=== PATIENT | female | born 1935 | race Caucasian/White ===

== ENCOUNTER → 2016-12-03 | Outpatient (CLI) | payer OTHER ==
[~2016-12-03] MED LIST: ALUMSUS21 PO; AMLO2.5T PO; APIX1TAB3 PO; ATOR10TA88 PO; CHOL100040 PO; COEN1CAP PO; DICY10CA12 PO; INSDGIPEN SQ; LISI20TA3 PO; LSN20 PO; METO1TAB31 PO; MISCCAP80 PO; MULT-506 PO; NF34 TOP; NXM/40 PO; NYST100010 TOP; RANI150T3 PO; RANI300T PO; VERA120T15 PO
[2016-12-03 13:17] LABS: BASO % 0.4 %; BASO ABS # 0.03 K/uL (0-0.2); COMPLETE YES; EOS % 1.4 %; HEMATOCRIT 34.4 % (37-47); IG% 0.1 %; LYMPH % 26.2 %; MEAN CELL VOLUME 85.1 fL (80-100); MEAN CORPUSCULAR HGB CONC 31.7 g/dl (32-36); MONO % 9.7 %; NEUT % 62.2 %; PLATELET COUNT 249 K/uL (130-400); RED BLOOD COUNT 4.04 M/uL (4.2-5.4); WHITE BLOOD COUNT 8.01 K/uL (4.8-10.8)
== END | disposition home or self-care (01) ==
LOC: C.LABPBG 10:56
PROVIDERS: ATTEND Internal Medicine Geriatric Medicine
DX: K62.5 Hemorrhage of anus and rectum (principal)

== ENCOUNTER 2016-12-17 00:58 | Emergency (ER) | payer OTHER ==
[~2016-12-17] VITALS: Ht 165.1 cm; Wt 82.5 kg
[~2016-12-17 00:58] MED LIST changes: -AMLO2.5T PO; -LSN20 PO; -RANI300T PO
[2016-12-17 01:02] VITALS: TEMP 36.8; Ht 165.1 cm; Wt 82.5 kg
[2016-12-17] MEDS ORDERED: MoRPHine SULFATE 4 MG/ML 1 ML CARP\\VIAL IV STA (01:46)
[2016-12-17] MEDS ORDERED: ONDANSETRON INJ 2 MG/ML 2 ML VIAL IV STA (01:46)
[2016-12-17 02:00] LABS: BASO % 0.2 %; BASO ABS # 0.02 K/uL (0-0.2); COMPLETE YES; EOS % 2.5 %; HEMATOCRIT 35.7 % (37-47); IG% 0.1 %; LYMPH ABS # 3.04 K/uL (1.2-3.4); MEAN CELL VOLUME 84.6 fL (80-100); MEAN CORPUSCULAR HEMOGLOBIN 27.3 pg (25-34); MEAN CORPUSCULAR HGB CONC 32.2 g/dl (32-36); MEAN PLATELET VOLUME 10.3 fL (7.4-10.4); MONO % 8.1 %; NEUT % 51.1 %; PLATELET COUNT 255 K/uL (130-400); RED BLOOD COUNT 4.22 M/uL (4.2-5.4); WHITE BLOOD COUNT 8.01 K/uL (4.8-10.8)
[2016-12-17 02:24] LABS: BUN/CREATININE RATIO 19.4 (10-20); CALCIUM 9.2 mg/dl (8.5-10.1); CREATININE 1.4 mg/dl (0.60-1.20); POTASSIUM 3.6 mmol/L (3.5-5.1)
[2016-12-17] MEDS ORDERED: AMLO2.5T PO (02:40)
--- NOTE | 2016-12-17 03:02 | EMERGENCY ROOM VISIT NOTE ---
History Report prepared by Jeffrey: Isaías Pollard Under the Supervision of: Dr. Rena Wood D.O. First contact with patient: 01:05 Chief Complaint: HYPERTENSION Stated Complaint: HIGH BLOOD PRESSURE, SEVERE HEADACHE History of Present Illness The patient is a 81 year old female who presents to the Emergency Room with complaints of a worsening sharp headache starting two days ago. The patient currently rates her discomfort as an 8/10 in severity. The patient states that light makes it worse. The patient denies any nausea, vomiting, vision changes, chest pain, shortness of breath, fevers, chills, weakness, or tingling. She states that she has had a similar headache in August. The patient states that she has a history of a DVT and she is currently on eliquis. The patient additionally states that she has a history of hypertension and diabetes. The patient states that her dosage of lisinopril has recently been doubled, and she started amlodipine at 2.5mg two days ago. Also, she say that two days ago her doctor stopped verapamil, which she was taking for migraines. Source of History: patient Onset: two days ago Position: other (head) Symptom Intensity: 8/10 Quality: sharp Timing: worsening Modifying Factors (Worsening): other (light) Associated Symptoms: No SOB, No chest pain, No chills, No fevers, No nausea , No vomiting, No weakness Review of Systems See HPI for pertinent positives & negatives. A total of 10 systems reviewed and were otherwise negative. Past Medical & Surgical Medical Problems: (1) Benign hypertension (2) Cholecystectomy (3) Diabetes mellitus (4) Diverticulitis (5) Gastroesophageal reflux disease (6) History of - hysterectomy Family History No pertinent family history Social History Smoking Status: Never Smoker Alcohol Use: none Drug Use: none Marital Status: Housing Status: lives with family Occupation Status: retired Current/Historical Medications Scheduled Amlodipine (Norvasc), 2.5 MG PO DAILY Apixaban (Eliquis), 5 MG PO BID Atorvastatin (Lipitor), 10 MG PO DAILY Cholecalciferol (Vitamin D-1000), 1,000 INTER.UNIT PO DAILY Clobetasol Propionate (Clobetasol Propionate), 1 APPLN TOP 2-3XSWEEK Coenzyme Q10 (Ubidecarenone) (Co Q10), 30 MG PO DAILY Dicyclomine Hcl (Dicyclomine Hcl), 10 MG PO TID/PRN Esomeprazole Magnesium (Nexium), 40 MG PO DAILY Insulin Glargine (Lantus Solostar), 23 UNITS SQ HS Lisinopril (Prinivil), 40 MG PO DAILY Metoprolol Succinate (Toprol Xl), 12.5 MG PO DAILY Multivitamin (Multivitamin), 1 TAB PO DAILY Nystatin (Topical) (Nystop), 1 APPLN TOP BID Probiotic Product (Probiotic), 1 CAP PO DAILY Ranitidine Hcl (Zantac), 150 MG PO HS Scheduled PRN Aluminum Hydroxide-Mag Carb (Gaviscon), 15-30 ML PO DIRECTED PRN for indigestion Allergies Coded Allergies: Penicillins (Verified Allergy, Intermediate, rash, 12/17/16) Sulfa Antibiotics (Verified Allergy, Intermediate, rash, 12/17/16) Atropine (Verified Allergy, Mild, PASSED OUT, 12/17/16) Cholestyramine (Verified Allergy, Mild, LIP SWELLING WITH PREVALITE (GEN QUESTRAN), 12/17/16) Cimetidine (Verified Allergy, Mild, INSOMNIA, 12/17/16) Diphenoxylate (Verified Allergy, Mild, PASSED OUT, 12/17/16) Ranitidine (Verified Allergy, Mild, INSOMNIA, 12/17/16) Sulfa Drugs (Verified Allergy, Mild, RASH, 12/17/16) Nitrofurantoin (Verified Allergy, Unknown, unkn, 12/17/16) Physical Exam Vital Signs Date Time Temp Pulse Resp B/P Pulse Ox O2 Delivery O2 Flow Rate FiO2 12/17/16 03:11 76 20 148/72 98 12/17/16 03:00 68 16 145/87 95 Room Air 12/17/16 02:10 61 20 166/83 97 Room Air 12/17/16 01:28 71 20 164/100 97 Room Air 12/17/16 01:02 36.8 74 21 182/76 98 Room Air Physical Exam HEENT: Head - normocephalic and atraumatic. Pupils are equal, round, and reactive to light. Extraocular eye muscles are intact and sclera are anicteric. Ears - bilaterally patent canals with noninjected tympanic membranes and no evidence of hemotympanum. Nose - moist nasal mucosa without discharge. Mouth - moist buccal mucosa. Oropharynx is nonerythematous and there is no tonsillar exudate or edema noted. Neck: Supple; no JVD, nuchal rigidity, cervical lymphadenopathy, or auscultated bruits. Heart: Regular rate and rhythm. There is a normal S1 and S2 with no murmurs, clicks, or gallops appreciated. Lungs: Clear to auscultation bilaterally with no wheezes, rales, or rhonchi. Abdomen: Soft, completely nontender, nondistended, with good bowel sounds. There are no palpable pulsatile masses or hepatosplenomegaly. There is no guarding, rigidity, or rebound noted. Extremities: No evidence of cyanosis, clubbing, or edema. There are easily palpable peripheral pulses. Neuro:The patient is awake and alert, oriented to day, time, and place. Muscle strength is 5/5 in all 4 extremities. The patient has equal director life sciences strength and equal pedal push and pull. There are no cerebellar signs. Medical Decision & Procedures ER Provider Diagnostic Interpretation: CT results as stated below per my review and radiologist interpretation: CT HEAD: Comparison is made to CT head dated 08/11/16. No ICH, mass effect, or midline shift. Lomas-white differentiation preserved. No evidence of skull fracture. Clear paranasal sinuses and mastoid air cells. Radiologist: Miguel Moreno M.D. Laboratory Results 12/17/16 01:20 Red Blood Count 4.22, Mean Corpuscular Volume 84.6, Mean Corpuscular Hemoglobin 27.3, Mean Corpuscular Hemoglobin Concent 32.2, Mean Platelet Volume 10.3, Neutrophils (%) (Auto) 51.1, Lymphocytes (%) (Auto) 38.0, Monocytes (%) (Auto) 8.1, Eosinophils (%) (Auto) 2.5, Basophils (%) (Auto) 0.2, Neutrophils # (Auto) 4.09, Lymphocytes # (Auto) 3.04, Monocytes # (Auto) 0.65, Eosinophils # (Auto) 0.20, Basophils # (Auto) 0.02 12/17/16 01:20 Test 12/17/16 01:20 White Blood Count 8.01 K/uL (4.8-10.8) Red Blood Count 4.22 M/uL (4.2-5.4) Hemoglobin 11.5 g/dL (12.0-16.0) Hematocrit 35.7 % (37-47) Mean Corpuscular Volume 84.6 fL (80-100) Mean Corpuscular Hemoglobin 27.3 pg (25-34) Mean Corpuscular Hemoglobin Concent 32.2 g/dl (32-36) Platelet Count 255 K/uL (130-400) Mean Platelet Volume 10.3 fL (7.4-10.4) Neutrophils (%) (Auto) 51.1 % Lymphocytes (%) (Auto) 38.0 % Monocytes (%) (Auto) 8.1 % Eosinophils (%) (Auto) 2.5 % Basophils (%) (Auto) 0.2 % Neutrophils # (Auto) 4.09 K/uL (1.4-6.5) Lymphocytes # (Auto) 3.04 K/uL (1.2-3.4) Monocytes # (Auto) 0.65 K/uL (0.11-0.59) Eosinophils # (Auto) 0.20 K/uL (0-0.5) Basophils # (Auto) 0.02 K/uL (0-0.2) RDW Standard Deviation 47.5 fL (36.4-46.3) RDW Coefficient of Variation 15.4 % (11.5-14.5) Immature Granulocyte % (Auto) 0.1 % Immature Granulocyte # (Auto) 0.01 K/uL (0.00-0.02) Anion Gap 10.0 mmol/L (3-11) Est Creatinine Clear Calc Drug Dose 34.0 ml/min Estimated GFR () 41.0 Estimated GFR (Non- 35.4 BUN/Creatinine Ratio 19.4 (10-20) Calcium Level 9.2 mg/dl (8.5-10.1) Total Bilirubin 0.6 mg/dl (0.2-1) Aspartate Amino Transf (AST/SGOT) 12 U/L (15-37) Alanine Aminotransferase (ALT/SGPT) 22 U/L (12-78) Alkaline Phosphatase 106 U/L (45-117) Total Protein 7.7 gm/dl (6.4-8.2) Albumin 3.8 gm/dl (3.4-5.0) Globulin 3.9 gm/dl (2.5-4.0) Albumin/Globulin Ratio 1.0 (0.9-2) Laboratory results per my review. Medications Administered Medications (Trade) Dose Ordered Sig/Chantel Route Start Time Stop Time Status Last Admin Dose Admin Morphine Sulfate (MoRPHine SULFATE INJ) 2 mg NOW STAT IV 12/17/16 01:46 12/17/16 01:49 DC 12/17/16 01:56 2 MG Ondansetron HCl (Zofran Inj) 4 mg NOW STAT IV 12/17/16 01:46 12/17/16 01:49 DC 12/17/16 01:55 4 MG Procedure Zofran, Morphine Sulfate ECG Indication: other (headache) Rate (beats per minute): 72 Rhythm: normal sinus Findings: no acute ischemic change, no ectopy ED Course 0105: Past medical records reviewed. The patient was evaluated in room A11. A complete history and physical exam was performed. A twelve-lead EKG was obtained as described above. The patient was observed on the computer science teacher and pulse oximeter. An IV lock was initiated and labs were drawn as above. 0146: Zofran Inj 4mg IV, Morphine Sulfate 2mg IV 257: Upon reevaluation, the patient had significant relief of her headache. Her blood pressure was now 145/87. I discussed findings and results with her. She verbalized agreement of the treatment plan. She was discharged home. Medical Decision The patient is a 81 year old female who presents to the ED with a headache. Differential diagnosis includes medication side effect, intracranial hemorrhage , migraine, hypertensive headache. Labs: No leukocytosis, hemoglobin 11.5, BUN 27, creatinine 1.4, glucose 144, LFTs are normal. The patient presents to the emergency department with a headache and slightly elevated blood pressure. She is currently being treated by her primary care physician for hypertension. Her lisinopril dose had been doubled and she started taking amlodipine approximately 4 days ago. Since that time, she's had a headache that seemed to worsen tonight. CT scan of the brain showed no evidence of acute intracranial hemorrhage. Once her pain was controlled, the blood pressure came down nicely. I have asked the patient to follow-up with her PCP Impression Primary Impression: Headache Additional Impression: Hypertension Scribe Attestation The scribe's documentation has been prepared under my direction and personally reviewed by me in its entirety. I confirm that the note above accurately reflects all work, treatment, procedures, and medical decision making performed by me. Departure Information Dispostion Home / Self-Care Referrals Reza Mccallum M.D. (PCP) Forms HOME CARE DOCUMENTATION FORM, IMPORTANT VISIT INFORMATION, WORK / SCHOOL INSTRUCTIONS Patient Instructions Headaches Self Care, My [facility] Additional Instructions Rest Take plenty of clear liquids Talk to PCP about BP meds Problem Qualifiers
[2016-12-17 03:11] VITALS: BP 148/72; PULSE 76; O2SAT 98
--- NOTE | 2016-12-17 06:46 | DIAGNOSTIC IMAGING REPORT ---
HEAD CT NONCONTRAST CT DOSE: 623.48 mGy.cm HISTORY: Mental status change 08/21/2016 TECHNIQUE: Multiaxial CT images of the head were performed without the use of intravenous contrast. Comparison: None. Findings: The paranasal sinuses and mastoid air cells are clear. The calvarium and skull base are intact. The ventricles and sulci are within normal limits. There is no mass, hematoma, midline shift, or acute infarct. Impression: No acute intracranial abnormality. Electronically signed by: Oz Neri M.D. 12/17/2016 6:44 AM Dictated Date/Time: 12/17/2016 6:44 AM
== END 2016-12-17 03:13 | disposition home or self-care (01) ==
LOC: C.EDB 01:00 → C.EDA 03:13
DX: R51 Headache (principal); I10 Essential (primary) hypertension; E11.9 Type 2 diabetes mellitus without complications; K21.9 Gastro-esophageal reflux disease without esophagitis; K57.92 Diverticulitis of intestine, part unspecified, without perforation or abscess without bleeding; Z90.710 Acquired absence of both cervix and uterus; Z90.49 Acquired absence of other specified parts of digestive tract; Z79.4 Long term (current) use of insulin; Z79.899 Other long term (current) drug therapy; Z88.0 Allergy status to penicillin; Z88.2 Allergy status to sulfonamides; Z88.8 Allergy status to other drugs, medicaments and biological substances

== ENCOUNTER → 2016-12-28 | Outpatient (CLI) | payer OTHER ==
[~2016-12-28] MED LIST changes: +AMLO2.5T PO; +LSN20 PO; +RANI300T PO; -VERA120T15 PO
[2016-12-28 17:35] LABS: BASO % 0.5 %; BASO ABS # 0.03 K/uL (0-0.2); COMPLETE YES; EOS % 1.1 %; HEMATOCRIT 36.6 % (37-47); IG% 0.2 %; LYMPH % 28.8 %; LYMPH ABS # 1.92 K/uL (1.2-3.4); MEAN CELL VOLUME 84.1 fL (80-100); MEAN CORPUSCULAR HEMOGLOBIN 27.4 pg (25-34); MEAN CORPUSCULAR HGB CONC 32.5 g/dl (32-36); MEAN PLATELET VOLUME 10.8 fL (7.4-10.4); NEUT % 61.4 %; PLATELET COUNT 254 K/uL (130-400); RED BLOOD COUNT 4.35 M/uL (4.2-5.4); WHITE BLOOD COUNT 6.66 K/uL (4.8-10.8)
[2016-12-28 17:44] LABS: ALT/SGPT 20 U/L (12-78); BLOOD UREA NITROGEN 21 mg/dl (7-18); BUN/CREATININE RATIO 17.8 (10-20); CALCIUM 9.3 mg/dl (8.5-10.1); CARBON DIOXIDE 22 mmol/L (21-32); CHLORIDE 106 mmol/L (98-107); CHOLESTEROL 139 mg/dl (0-200); GLUCOSE 142 mg/dl (70-99); POTASSIUM 3.9 mmol/L (3.5-5.1); SODIUM 140 mmol/L (136-145); TRIGLYCERIDES 158 mg/dl (0-150); VERY LOW DENSITY LIPOPROT CALC 32 mg/dl
[2016-12-28 17:47] LABS: ALB/GLOB RATIO 0.9 (0.9-2); ALKALINE PHOSPHATASE 96 U/L (45-117); AST/SGOT 14 U/L (15-37); CHOLESTEROL/HDL RATIO 2.2; HDL CHOLESTEROL 62 mg/dl; LDL CHOLESTEROL CALCULATED 45 mg/dl
[2016-12-29 06:48] LABS: ESTIMATED AVERAGE GLUCOSE 157 mg/dl; HA1C FLAG Normal (Normal)
--- NOTE | 2017-01-01 08:58 | CODING QUERY MEDICAL NECESSITY ---
SUPPORTING DIAGNOSIS NEEDED Dr. Mccallum, A supporting diagnosis is required for the test/procedure performed on this patient in order for us to be reimbursed by the patient's insurance. Please provide a supporting diagnosis for the following test/procedure listed below next to the test name along with your signature. *If there is no additional diagnosis for this patient that would support the following test/procedure please document that below next to the test/procedure. Test(s)/Procedure(s) that require a supporting diagnosis: * ([id number]) VITAMIN D ASSAY DIAGNOSIS: * [id number] GLYCATED HEMOGLOBIN DIAGNOSIS: DATE OF SERVICE: 12/28/16 Provider Signature: Date: Thank you Jamir Jameson Health Information Management Once completed, please kindly fax back to [phone] For questions please call [phone]
== END | disposition home or self-care (01) ==
LOC: C.LABPBG 11:40
PROVIDERS: ATTEND Internal Medicine Geriatric Medicine
DX: I10 Essential (primary) hypertension (principal); G47.61 Periodic limb movement disorder; K21.9 Gastro-esophageal reflux disease without esophagitis; R19.7 Diarrhea, unspecified; I25.10 Atherosclerotic heart disease of native coronary artery without angina pectoris; R33.9 Retention of urine, unspecified; D64.9 Anemia, unspecified; I82.409 Acute embolism and thrombosis of unspecified deep veins of unspecified lower extremity; E11.9 Type 2 diabetes mellitus without complications; Z79.899 Other long term (current) drug therapy

== ENCOUNTER → 2017-02-22 | Outpatient (CLI) | payer OTHER ==
[~2017-02-22] MED LIST changes: +ATOR10TA82 PO; -ATOR10TA88 PO; +METO-478 PO; -METO1TAB31 PO
--- NOTE | 2017-02-22 17:13 | DIAGNOSTIC IMAGING REPORT ---
ULTRASOUND VENOUS DOPPLER LWR EXT BILA CLINICAL HISTORY: Bilateral leg swelling COMPARISON STUDY: 03/02/2016 FINDINGS: On the right, no thrombus is visualized in the common femoral vein. There is thrombus present within the distal superficial femoral vein and popliteal vein. No flow is visualized in the peroneal veins. On the left, no thrombus is visualized in the left common femoral superficial femoral or popliteal veins. The left posterior tibial and anterior tibial veins appear patent as visualized. There is broken flow within the left peroneal veins. This could indicate thrombus. IMPRESSION: Acute right lower extremity DVT involving portions of the distal superficial femoral vein and popliteal vein. Electronically signed by: Jeffrey Ruano M.D. 02/22/2017 5:11 PM Dictated Date/Time: 02/22/2017 5:09 PM
== END | disposition home or self-care (01) ==
LOC: C.ULTR 16:30
PROVIDERS: ATTEND Physician Assistant Medical
DX: I82.411 Acute embolism and thrombosis of right femoral vein (principal); I82.431 Acute embolism and thrombosis of right popliteal vein

== ENCOUNTER → 2017-03-04 | Outpatient (CLI) | payer OTHER ==
[2017-03-04 11:53] LABS: URINE APPEARANCE CLOUDY (CLEAR); URINE BILIRUBIN NEG (NEG); URINE COLOR YELLOW; URINE NITRITE NEG (NEG); URINE SPECIFIC GRAVITY 1.009 (1.000-1.030); UROBILINOGEN NEG (NEG)
[2017-03-04 11:56] LABS: MANUAL MICROSCOPIC REQUIRED? NO; REVIEW REQ? NO
== END | disposition home or self-care (01) ==
LOC: C.LABPBG 09:43
PROVIDERS: ATTEND Internal Medicine Geriatric Medicine
DX: R39.9 Unspecified symptoms and signs involving the genitourinary system (principal)

== ENCOUNTER 2017-04-08 08:49 | Emergency (ER) | payer OTHER ==
[~2017-04-08] VITALS: Ht 165.1 cm; Wt 86.6 kg
[~2017-04-08 08:49] MED LIST changes: -LSN20 PO; -RANI300T PO
[2017-04-08 08:53] VITALS: TEMP 36.4; Ht 165.1 cm; Wt 86.6 kg
[2017-04-08] MEDS ORDERED: SODIUM CHLORIDE 0.9% 1000ML 1,000 ML IV STA (09:07)
[2017-04-08] MEDS ORDERED: LSN20 PO (09:09)
[2017-04-08] MEDS ORDERED: RANI300T PO (09:09)
--- NOTE | 2017-04-08 09:12 | EMERGENCY ROOM VISIT NOTE ---
History Report prepared by Jeffrey: Lencho Nation Under the Supervision of: Dr. Vandana Hopkins M.D. First contact with patient: 08:56 Chief Complaint: RIB PAIN Stated Complaint: PAIN ON RT SIDE-POSS. BLOOD CLOT History of Present Illness The patient is an 81 year old female who presents to the Emergency Room with complaints of intermittent pain in the right rib area that started last night. The pain is located under the right breast. The pain is not worse when she takes a deep breath. The patient initially thought she was experiencing indigestion last night. She denies shortness of breath. The patient was diagnosed with a DVT of the right leg two months ago. She is on Eliquis and has not missed any doses. The patient is s/p cholecystectomy. Source of History: patient Onset: last night Position: other (right rib area) Timing: intermittent Modifying Factors (Worsening): other (not worsened when she takes a deep breath) Associated Symptoms: No SOB Review of Systems See HPI for pertinent positives & negatives. A total of 10 systems reviewed and were otherwise negative. Past Medical & Surgical Medical Problems: (1) Benign hypertension (2) Cholecystectomy (3) Diabetes mellitus (4) Diverticulitis (5) Gastroesophageal reflux disease (6) History of - hysterectomy Family History No pertinent family history Social History Smoking Status: Never Smoker Alcohol Use: none Drug Use: none Marital Status: Housing Status: lives with family Occupation Status: retired Current/Historical Medications Scheduled Apixaban (Eliquis), 5 MG PO BID Atorvastatin (Lipitor), 10 MG PO DAILY Cholecalciferol (Vitamin D-1000), 1,000 INTER.UNIT PO DAILY Clobetasol Propionate (Clobetasol Propionate), 1 APPLN TOP 2-3XSWEEK Coenzyme Q10 (Ubidecarenone) (Co Q10), 30 MG PO DAILY Dicyclomine Hcl (Dicyclomine Hcl), 10 MG PO TID/PRN Esomeprazole Magnesium (Nexium), 40 MG PO DAILY Insulin Glargine (Lantus Solostar), 23 UNITS SQ HS Lisinopril (Lisinopril), 1 TAB PO DAILY Multivitamin (Multivitamin), 1 TAB PO DAILY Nystatin (Topical) (Nystop), 1 APPLN TOP BID Probiotic Product (Probiotic), 1 CAP PO DAILY Ranitidine Hcl (Zantac), 0.5 TAB PO BID Scheduled PRN Aluminum Hydroxide-Mag Carb (Gaviscon), 15-30 ML PO DIRECTED PRN for indigestion Allergies Coded Allergies: Penicillins (Verified Allergy, Intermediate, rash, 04/08/17) Sulfa Antibiotics (Verified Allergy, Intermediate, rash, 04/08/17) Atropine (Verified Allergy, Mild, PASSED OUT, 04/08/17) Cholestyramine (Verified Allergy, Mild, LIP SWELLING WITH PREVALITE (GEN QUESTRAN), 04/08/17) Cimetidine (Verified Allergy, Mild, INSOMNIA, 04/08/17) Diphenoxylate (Verified Allergy, Mild, PASSED OUT, 04/08/17) Ranitidine (Verified Allergy, Mild, INSOMNIA, 04/08/17) Sulfa Drugs (Verified Allergy, Mild, RASH, 04/08/17) Nitrofurantoin (Verified Allergy, Unknown, unkn, 04/08/17) Physical Exam Vital Signs Date Time Temp Pulse Resp B/P (MAP) Pulse Ox O2 Delivery O2 Flow Rate FiO2 04/08/17 12:43 64 20 156/86 98 04/08/17 11:49 68 16 139/84 97 Room Air 04/08/17 10:15 61 16 148/67 97 Room Air 04/08/17 08:53 36.4 64 18 202/75 99 Room Air Physical Exam Vital signs reviewed. General: Well-appearing elderly female, in no significant distress. HEENT: No scleral icterus, PERRLA, neck supple. Atraumatic. Cardiovascular: Regular rate and rhythm, no extra sounds. Pulmonary: Clear to auscultation bilaterally, normal work of breathing. Abdomen: Soft, minimal discomfort to the epigastric region, nondistended, positive bowel sounds. Musculoskeletal: Atraumatic, no peripheral edema. Tenderness over the right distal rib cage and right upper quadrant. Neurologic: Patient awake alert and oriented x 3 Skin: Warm, dry, no rash Medical Decision & Procedures ER Provider Diagnostic Interpretation: Radiology results as stated below per my review and radiologist interpretation: CT ANGIOGRAM OF THE CHEST CLINICAL HISTORY: Right-sided chest pain. Right leg DVT. COMPARISON STUDY: No previous studies for comparison. TECHNIQUE: Following the IV administration of 85 mL of Optiray-320, CT angiogram of the thorax was performed from the thoracic inlet to the lung bases utilizing the pulmonary embolus protocol. Images are reviewed in the axial, sagittal, and coronal planes. IV contrast was administered without complication. MIP imaging was performed. CT DOSE: 336.17 mGy.cm FINDINGS: There is a 9 mm preaortic lymph node. There are no pathologically nodes by size criteria. There was no evidence of thoracic aortic dilatation. There were no pulmonary artery filling defects to indicate acute pulmonary embolism. No pleural effusions are visualized. There is no focal pulmonary consolidation. There is mild bibasilar atelectasis. There is no pneumothorax. IMPRESSION: 1. No evidence of acute pulmonary embolism 2. No evidence of focal pulmonary consolidation Electronically signed by: Jeffrey Ruano M.D. 04/08/2017 10:35 AM Dictated Date/Time: 04/08/2017 10:31 AM Laboratory Results 04/08/17 09:16 Red Blood Count 4.24, Mean Corpuscular Volume 88.4, Mean Corpuscular Hemoglobin 29.0, Mean Corpuscular Hemoglobin Concent 32.8, Mean Platelet Volume 9.2, Neutrophils (%) (Auto) 67.0, Lymphocytes (%) (Auto) 24.2, Monocytes (%) (Auto) 6.3, Eosinophils (%) (Auto) 1.9, Basophils (%) (Auto) 0.3, Neutrophils # (Auto) 5.01, Lymphocytes # (Auto) 1.81, Monocytes # (Auto) 0.47, Eosinophils # (Auto) 0.14, Basophils # (Auto) 0.02 04/08/17 09:16 Test 04/08/17 09:16 04/08/17 09:25 White Blood Count 7.47 K/uL (4.8-10.8) Red Blood Count 4.24 M/uL (4.2-5.4) Hemoglobin 12.3 g/dL (12.0-16.0) Hematocrit 37.5 % (37-47) Mean Corpuscular Volume 88.4 fL (80-100) Mean Corpuscular Hemoglobin 29.0 pg (25-34) Mean Corpuscular Hemoglobin Concent 32.8 g/dl (32-36) Platelet Count 238 K/uL (130-400) Mean Platelet Volume 9.2 fL (7.4-10.4) Neutrophils (%) (Auto) 67.0 % Lymphocytes (%) (Auto) 24.2 % Monocytes (%) (Auto) 6.3 % Eosinophils (%) (Auto) 1.9 % Basophils (%) (Auto) 0.3 % Neutrophils # (Auto) 5.01 K/uL (1.4-6.5) Lymphocytes # (Auto) 1.81 K/uL (1.2-3.4) Monocytes # (Auto) 0.47 K/uL (0.11-0.59) Eosinophils # (Auto) 0.14 K/uL (0-0.5) Basophils # (Auto) 0.02 K/uL (0-0.2) RDW Standard Deviation 48.4 fL (36.4-46.3) RDW Coefficient of Variation 14.8 % (11.5-14.5) Immature Granulocyte % (Auto) 0.3 % Immature Granulocyte # (Auto) 0.02 K/uL (0.00-0.02) Anion Gap 10.0 mmol/L (3-11) Est Creatinine Clear Calc Drug Dose 44.3 ml/min Estimated GFR () 54.9 Estimated GFR (Non- 47.4 BUN/Creatinine Ratio 17.8 (10-20) Calcium Level 8.9 mg/dl (8.5-10.1) Magnesium Level 2.1 mg/dl (1.8-2.4) Total Bilirubin 0.6 mg/dl (0.2-1) Direct Bilirubin mg/dl (0-0.2) Aspartate Amino Transf (AST/SGOT) 20 U/L (15-37) Alanine Aminotransferase (ALT/SGPT) 25 U/L (12-78) Alkaline Phosphatase 93 U/L (45-117) Total Creatine Kinase 145 U/L (26-192) Creatine Kinase MB 1.8 ng/ml (0.5-3.6) Creatine Kinase MB Ratio 1.2 (0-3.0) Total Protein 7.3 gm/dl (6.4-8.2) Albumin 3.4 gm/dl (3.4-5.0) Lipase 302 U/L (73-393) Chemistry Specimen Hemolysis Bedside Troponin I 0.000 ng/ml (0-0.045) Laboratory results per my review. Medications Administered Medications (Trade) Dose Ordered Sig/Chantel Route Start Time Stop Time Status Last Admin Dose Admin Sodium Chloride 1,000 ml @ 125 mls/hr Q8H STAT IV 04/08/17 09:07 04/08/17 12:58 DC 04/08/17 10:00 125 MLS/HR ECG Indication: other (right rib pain) Rate (beats per minute): 59 Rhythm: normal sinus Findings: no acute ischemic change, no ectopy ED Course 0905: Past medical records reviewed. The patient was evaluated in room B11b. A complete history and physical examination was performed. 09: NSS 1000 ml @ 125 mls/hr. 1150: Reassessed the patient. Discussed the findings with her. She verbalized understanding of the treatment plan. The patient is ready for discharge. Medical Decision Differential diagnosis: Acute coronary syndrome, peptic ulcer disease, pancreatitis, diverticulitis, pulmonary embolus, aortic dissection, musculoskeletal pain, pneumonia, pleural effusion, pneumothorax Medication Reconciliation: I attest that I have personally reviewed the patient' s current medication list. Blood Pressure Screening: Patient was found to have an elevated blood pressure and was referred to their primary doctor for recheck and further treatment. She is on lisinopril. This pt was evaluated and appeared to be in no distress. IV access was obtained and lab work was drawn. Pt was placed on the panel monitor. EKG reveals no acute ischemia. Pt was medicated with NSS. CT chest was performed and is negative for PE. Lab work is fairly unrevealing. Pt was informed of the findings. THe pain is likley MSK in nature. Pt was advised to continue Eliquis as prescribed and to f/u with PCP this week. She will return to the ED for worsening of symptoms or any medical concerns. Impression Primary Impression: Right-sided chest pain Scribe Attestation The scribe's documentation has been prepared under my direction and personally reviewed by me in its entirety. I confirm that the note above accurately reflects all work, treatment, procedures, and medical decision making performed by me. Departure Information Dispostion Home / Self-Care Referrals Reza Mccallum M.D. (PCP) Forms HOME CARE DOCUMENTATION FORM, IMPORTANT VISIT INFORMATION, WORK / SCHOOL INSTRUCTIONS Patient Instructions My [facility] Additional Instructions Diagnosis: Right chest pain Tylenol 650 mg every 6 hours as needed for pain. Warm compresses and gentle stretching. Follow-up with your physician this week for reevaluation. Return to the ER for worsening of symptoms or any medical concerns.
[2017-04-08] MEDS ORDERED: OPTIRAY 320 IV PRN (09:15)
[2017-04-08 09:30] LABS: BASO % 0.3 %; BASO ABS # 0.02 K/uL (0-0.2); COMPLETE YES; EOS % 1.9 %; HEMATOCRIT 37.5 % (37-47); IG% 0.3 %; LYMPH % 24.2 %; LYMPH ABS # 1.81 K/uL (1.2-3.4); MEAN CELL VOLUME 88.4 fL (80-100); MEAN CORPUSCULAR HGB CONC 32.8 g/dl (32-36); MEAN PLATELET VOLUME 9.2 fL (7.4-10.4); MONO % 6.3 %; PLATELET COUNT 238 K/uL (130-400); RED BLOOD COUNT 4.24 M/uL (4.2-5.4); WHITE BLOOD COUNT 7.47 K/uL (4.8-10.8)
[2017-04-08 09:56] LABS: ALKALINE PHOSPHATASE 93 U/L (45-117); ALT/SGPT 25 U/L (12-78); AST/SGOT 20 U/L (15-37); BLOOD UREA NITROGEN 20 mg/dl (7-18); BUN/CREATININE RATIO 17.8 (10-20); CALCIUM 8.9 mg/dl (8.5-10.1); CARBON DIOXIDE 24 mmol/L (21-32); CHLORIDE 106 mmol/L (98-107); CKMB/CK RATIO 1.2 (0-3.0); GLUCOSE 148 mg/dl (70-99); MAGNESIUM 2.1 mg/dl (1.8-2.4); POTASSIUM 4.4 mmol/L (3.5-5.1); SODIUM 140 mmol/L (136-145)
--- NOTE | 2017-04-08 10:36 | DIAGNOSTIC IMAGING REPORT ---
CT ANGIOGRAM OF THE CHEST CLINICAL HISTORY: Right-sided chest pain. Right leg DVT. COMPARISON STUDY: No previous studies for comparison. TECHNIQUE: Following the IV administration of 85 mL of Optiray-320, CT angiogram of the thorax was performed from the thoracic inlet to the lung bases utilizing the pulmonary embolus protocol. Images are reviewed in the axial, sagittal, and coronal planes. IV contrast was administered without complication. MIP imaging was performed. CT DOSE: 336.17 mGy.cm FINDINGS: There is a 9 mm preaortic lymph node. There are no pathologically nodes by size criteria. There was no evidence of thoracic aortic dilatation. There were no pulmonary artery filling defects to indicate acute pulmonary embolism. No pleural effusions are visualized. There is no focal pulmonary consolidation. There is mild bibasilar atelectasis. There is no pneumothorax. IMPRESSION: 1. No evidence of acute pulmonary embolism 2. No evidence of focal pulmonary consolidation Electronically signed by: Jeffrey Ruano M.D. 04/08/2017 10:35 AM Dictated Date/Time: 04/08/2017 10:31 AM
[2017-04-08 12:43] VITALS: BP 156/86; PULSE 64; O2SAT 98
== END 2017-04-08 12:45 | disposition home or self-care (01) ==
LOC: C.EDB 08:51
DX: R07.89 Other chest pain (principal); I10 Essential (primary) hypertension; E11.9 Type 2 diabetes mellitus without complications; K21.9 Gastro-esophageal reflux disease without esophagitis; K57.92 Diverticulitis of intestine, part unspecified, without perforation or abscess without bleeding; Z90.49 Acquired absence of other specified parts of digestive tract; Z90.710 Acquired absence of both cervix and uterus; Z79.4 Long term (current) use of insulin; Z79.899 Other long term (current) drug therapy; Z88.0 Allergy status to penicillin; Z88.2 Allergy status to sulfonamides; Z88.8 Allergy status to other drugs, medicaments and biological substances

== ENCOUNTER → 2017-04-12 | Outpatient (CLI) | payer OTHER ==
[~2017-04-12] MED LIST changes: -AMLO2.5T PO; -LISI20TA3 PO; +LSN20 PO; -METO-478 PO; -RANI150T3 PO; +RANI300T PO
--- NOTE | 2017-04-12 16:02 | MAMMOGRAPHY REPORT ---
BILATERAL DIGITAL SCREENING MAMMOGRAM WITH CAD: 04/12/2017 CLINICAL HISTORY: Routine screening. Patient has no complaints. TECHNIQUE: Bilateral CC, MLO and repeat left cc views were obtained. Current study was also evaluate d with a Computer Aided Detection (CAD) system. COMPARISON: Comparison is made to exams dated: 04/09/2016 mammogram, 04/05/2015 mammogram, 04/04/2014 ma mmogram, 03/22/2013 mammogram, 09/25/2011 mammogram, and 09/24/2010 mammogram - [facility]. BREAST COMPOSITION: The tissue of both breasts is almost entirely fatty. FINDINGS: There are a few scattered benign-appearing calcifications in the breasts. No suspicious mas s, architectural distortion or cluster of microcalcifications is seen. IMPRESSION: ACR BI-RADS CATEGORY 1: NEGATIVE There is no mammographic evidence of malignancy. A 1 year screening mammogram is recommended. The pa tient will receive written notification of the results. Approximately 10% of breast cancers are not detected with mammography. A negative mammographic report should not delay biopsy if a clinically suggestive mass is present. Susan Mcdaniel M.D. ay/:04/12/2017 15:55:40 Topographic Computator: Arlene HOLLEY(Jr)(Inderjit)(BD), [facility] letter sent: Normal 1/2 BI-RADS Code: ACR BI-RADS Category 1: Negative
== END | disposition home or self-care (01) ==
LOC: C.MAMM 11:11
PROVIDERS: ATTEND Internal Medicine Geriatric Medicine
DX: Z12.31 Encounter for screening mammogram for malignant neoplasm of breast (principal)

== ENCOUNTER → 2017-04-14 | Outpatient (CLI) | payer OTHER ==
--- NOTE | 2017-04-14 12:52 | DIAGNOSTIC IMAGING REPORT ---
ULTRASOUND RIGHT VENOUS DOPP LOWER EXT UNILAT CLINICAL HISTORY: Right leg pain COMPARISON STUDY: 08/20/2016 FINDINGS: There is persistent nonocclusive thrombus within the superficial femoral popliteal and peroneal veins. No thrombus is visualized the common femoral vein. There is a small popliteal cyst measuring 40 x 5 x 20 mm. IMPRESSION: Chronic right lower extremity DVT. Electronically signed by: Jeffrey Ruano M.D. 04/14/2017 12:51 PM Dictated Date/Time: 04/14/2017 12:49 PM
== END | disposition home or self-care (01) ==
LOC: C.ULTRBC 12:09
PROVIDERS: ATTEND Physician Assistant Medical
DX: I82.5Z1 Chronic embolism and thrombosis of unspecified deep veins of right distal lower extremity (principal); M79.604 Pain in right leg

== ENCOUNTER → 2017-04-15 | Outpatient (CLI) | payer OTHER ==
[2017-04-15 12:46] LABS: URINE APPEARANCE TURBID (CLEAR); URINE BILIRUBIN NEG (NEG); URINE COLOR YELLOW; URINE EPITHELIAL CELL AUTO >30 /lpf (0-5); URINE NITRITE NEG (NEG); URINE PH 5.5 (4.5-7.5); URINE SPECIFIC GRAVITY 1.014 (1.000-1.030); UROBILINOGEN NEG (NEG)
[2017-04-15 12:55] LABS: MANUAL MICROSCOPIC REQUIRED? NO; REVIEW REQ? NO
[2017-04-15 12:57] LABS: ESTIMATED AVERAGE GLUCOSE 160 mg/dl; HA1C FLAG Normal (Normal)
[2017-04-15 14:24] LABS: BLOOD UREA NITROGEN 22 mg/dl (7-18); BUN/CREATININE RATIO 18.1 (10-20); CALCIUM 9.1 mg/dl (8.5-10.1); CARBON DIOXIDE 21 mmol/L (21-32); CHLORIDE 108 mmol/L (98-107); GLUCOSE 135 mg/dl (70-99); PHOSPHORUS 3.3 mg/dl (2.5-4.9); SODIUM 139 mmol/L (136-145)
== END ==
LOC: C.LABPBG 08:52
PROVIDERS: ATTEND Internal Medicine Geriatric Medicine
DX: N18.3 Chronic kidney disease, stage 3 (moderate) (principal); R39.9 Unspecified symptoms and signs involving the genitourinary system; I10 Essential (primary) hypertension; D64.9 Anemia, unspecified; E11.9 Type 2 diabetes mellitus without complications

== ENCOUNTER → 2017-04-20 | Outpatient (CLI) | payer OTHER ==
[2017-04-20 13:20] LABS: URINE APPEARANCE CLEAR (CLEAR); URINE BILIRUBIN NEG (NEG); URINE COLOR YELLOW; URINE EPITHELIAL CELL AUTO >30 /lpf (0-5); URINE NITRITE NEG (NEG); URINE SPECIFIC GRAVITY 1.014 (1.000-1.030); UROBILINOGEN NEG (NEG)
[2017-04-20 13:24] LABS: MANUAL MICROSCOPIC REQUIRED? NO; REVIEW REQ? YES
== END | disposition home or self-care (01) ==
LOC: C.LABPBG 09:13
PROVIDERS: ATTEND Internal Medicine Geriatric Medicine
DX: R39.9 Unspecified symptoms and signs involving the genitourinary system (principal)

== ENCOUNTER → 2017-05-07 | Outpatient (CLI) | payer OTHER ==
[~2017-05-07] MED LIST changes: -ATOR10TA82 PO; +ATOR10TA88 PO
--- NOTE | 2017-05-07 13:54 | DIAGNOSTIC IMAGING REPORT ---
LUMBAR SPINE 5 VIEWS HISTORY: Back pain M54.9 Back painM25.559 Hip [id number] COMPARISON: 10/01/2011 FINDINGS: There is no fracture. No subluxation. Degenerative disc change moderately progressive from the prior study. Most prominent progression is at L4-L5. Vacuum disc is present at that site. Moderate degenerative change posterior elements. No evidence for subluxation. IMPRESSION: Progressive degenerative change considered most prominent at L4-L5. Electronically signed by: Oz Neri M.D. 05/07/2017 1:53 PM Dictated Date/Time: 05/07/2017 1:52 PM
== END | disposition home or self-care (01) ==
LOC: C.RADBC 13:21
PROVIDERS: ATTEND Internal Medicine Geriatric Medicine
DX: M25.559 Pain in unspecified hip (principal); M54.9 Dorsalgia, unspecified

== ENCOUNTER → 2017-06-25 | Outpatient (CLI) | payer OTHER ==
--- NOTE | 2017-06-25 14:13 | DIAGNOSTIC IMAGING REPORT ---
RIGHT VENOUS DOPP LOWER EXT UNILAT CLINICAL HISTORY: M79.661 Pain and swelling of right lower leg Right pain. Edema. TECHNIQUE: Venous Doppler COMPARISON STUDY: 04/14/2017 FINDINGS: Unchanged exam compared to the prior study. Thrombus persists on a chronic basis within the right popliteal and peroneal veins and to a limited extent distal superficial femoral vein. Overall distribution and configuration is unchanged from the prior study. 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 Unchanging right popliteal cyst. The above report was generated using voice recognition software. It may contain grammatical, syntax or spelling errors. Electronically signed by: Oz Neri M.D. 06/25/2017 2:12 PM Dictated Date/Time: 06/25/2017 2:10 PM
== END | disposition home or self-care (01) ==
LOC: C.ULTRBC 13:37
PROVIDERS: ATTEND Physician Assistant
DX: M79.661 Pain in right lower leg (principal); I80.291 Phlebitis and thrombophlebitis of other deep vessels of right lower extremity; M71.21 Synovial cyst of popliteal space [Baker], right knee

== ENCOUNTER → 2017-07-30 | Outpatient (CLI) | payer OTHER ==
[2017-07-30 12:29] LABS: BASO % 0.1 %; BASO ABS # 0.01 K/uL (0-0.2); COMPLETE YES; IG% 0.3 %; LYMPH % 10.5 %; LYMPH ABS # 1.27 K/uL (1.2-3.4); MEAN CELL VOLUME 90.9 fL (80-100); MEAN CORPUSCULAR HEMOGLOBIN 30.1 pg (25-34); MEAN CORPUSCULAR HGB CONC 33.1 g/dl (32-36); MEAN PLATELET VOLUME 10.5 fL (7.4-10.4); MONO % 5.4 %; NEUT % 83.7 %; PLATELET COUNT 277 K/uL (130-400); RED BLOOD COUNT 4.29 M/uL (4.2-5.4); WHITE BLOOD COUNT 12.06 K/uL (4.8-10.8)
[2017-07-30 12:43] LABS: URINE APPEARANCE CLOUDY (CLEAR); URINE BILIRUBIN NEG (NEG); URINE COLOR YELLOW; URINE NITRITE NEG (NEG); URINE PH 5.5 (4.5-7.5); URINE SPECIFIC GRAVITY 1.015 (1.000-1.030); UROBILINOGEN NEG (NEG); ZZUR CULT IF INDIC CLEAN CATCH YES
[2017-07-30 12:48] LABS: MANUAL MICROSCOPIC REQUIRED? NO; REVIEW REQ? NO
[2017-07-30 12:53] LABS: BLOOD UREA NITROGEN 38 mg/dl (7-18); BUN/CREATININE RATIO 29.5 (10-20); CALCIUM 9.4 mg/dl (8.5-10.1); CARBON DIOXIDE 22 mmol/L (21-32); CHLORIDE 105 mmol/L (98-107); GLUCOSE 162 mg/dl (70-99); POTASSIUM 4.2 mmol/L (3.5-5.1); SODIUM 136 mmol/L (136-145)
[2017-07-30 12:54] LABS: ESTIMATED AVERAGE GLUCOSE 154 mg/dl; HA1C FLAG Normal (Normal)
[2017-07-30 12:55] LABS: URINE PROTIEN/CREAT RATIO 0.1 (0-0.2); URINE TOTAL PROTEIN 9.1 mg/dl (0-11.9)
[2017-07-30 13:04] LABS: THYROID STIMULATING HORMONE 0.404 uIu/ml (0.300-4.500)
--- NOTE | 2017-08-05 09:53 | CODING QUERY MEDICAL NECESSITY ---
CQSUPPORTING DIAGNOSIS NEEDED A supporting diagnosis is required for the test/procedure performed on this patient in order for us to be reimbursed by the patient's insurance. Please provide a supporting diagnosis for the following test/procedure listed below next to the test name along with your signature. *If there is no additional diagnosis for this patient that would support the following test/procedure please document that below next to the test/procedure. Test(s)/Procedure(s) that require a supporting diagnosis: DONALDO 07/30/17 URINE CULTURE Provider Signature: Date: Thank you Bre Mcduffie [employer] Once completed, please kindly fax back to [phone] For questions please call [phone]
== END | disposition home or self-care (01) ==
LOC: C.LABPBG 08:43
PROVIDERS: ATTEND Internal Medicine Geriatric Medicine
DX: I10 Essential (primary) hypertension (principal); D64.9 Anemia, unspecified; E11.9 Type 2 diabetes mellitus without complications; N18.3 Chronic kidney disease, stage 3 (moderate)

== ENCOUNTER → 2017-09-24 | Outpatient (CLI) | payer OTHER ==
[~2017-09-24] MED LIST changes: +ATOR10TA82 PO; -ATOR10TA88 PO
[2017-09-24 13:17] LABS: URINE APPEARANCE CLEAR (CLEAR); URINE BILIRUBIN NEG (NEG); URINE COLOR YELLOW; URINE EPITHELIAL CELL AUTO >30 /lpf (0-5); URINE NITRITE NEG (NEG); URINE PH 5.5 (4.5-7.5); URINE SPECIFIC GRAVITY 1.013 (1.000-1.030); UROBILINOGEN NEG (NEG)
[2017-09-24 13:19] LABS: MANUAL MICROSCOPIC REQUIRED? NO; REVIEW REQ? NO
== END | disposition home or self-care (01) ==
LOC: C.LABPBG 08:16
PROVIDERS: ATTEND Internal Medicine Geriatric Medicine
DX: R39.9 Unspecified symptoms and signs involving the genitourinary system (principal)

== ENCOUNTER → 2017-09-29 | Outpatient (CLI) | payer OTHER | END | disposition home or self-care (01) | LOC: C.LABPBG 08:21 | PROVIDERS: ATTEND Internal Medicine Geriatric Medicine | DX: R33.9 Retention of urine, unspecified (principal) ==

== ENCOUNTER 2017-11-15 17:48 | Emergency (ER) | payer OTHER ==
[~2017-11-15] VITALS: Ht 167.6 cm; Wt 89.0 kg
[~2017-11-15 17:48] MED LIST changes: -APIX1TAB3 PO; -CHOL100040 PO; -INSDGIPEN SQ; -MISCCAP80 PO; -NF34 TOP
[2017-11-15 18:01] VITALS: TEMP 36.6; Ht 167.6 cm; Wt 89.0 kg
[2017-11-15 19:05] LABS: BASO % 0.3 %; BASO ABS # 0.02 K/uL (0-0.2); EOS % 1.1 %; EOS ABS # 0.07 K/uL (0-0.5); HEMATOCRIT 37.5 % (37-47); HEMOGLOBIN 12.4 g/dL (12.0-16.0); IG# 0.02 K/uL (0.00-0.02); LYMPH % 29.3 %; LYMPH ABS # 1.88 K/uL (1.2-3.4); MEAN CELL VOLUME 94.2 fL (80-100); MEAN CORPUSCULAR HEMOGLOBIN 31.2 pg (25-34); MEAN CORPUSCULAR HGB CONC 33.1 g/dl (32-36); MONO % 8.1 %; MONO ABS # 0.52 K/uL (0.11-0.59); NEUT % 60.9 %; PLATELET COUNT 201 K/uL (130-400); RED CELL DISTRIBUTION WIDTH CV 13.8 % (11.5-14.5); RED CELL DISTRIBUTION WIDTH SD 47.9 fL (36.4-46.3); WHITE BLOOD COUNT 6.41 K/uL (4.8-10.8)
[2017-11-15 19:17] LABS: PTT PATIENT 25.7 SECONDS (21.0-31.0)
[2017-11-15] MEDS ORDERED: ESOM1CAP34 PO (19:18)
[2017-11-15] MEDS ORDERED: VERA120T65 PO (19:18)
[2017-11-15] MEDS ORDERED: INSU100I2 SC (19:18)
[2017-11-15] MEDS ORDERED: LPT10 PO (19:18)
[2017-11-15] MEDS ORDERED: MULT-1092 PO (19:20)
[2017-11-15 19:23] LABS: ALBUMIN 3.4 gm/dl (3.4-5.0); CALCIUM 9.1 mg/dl (8.5-10.1); CREATININE 1.09 mg/dl (0.60-1.20)
[2017-11-15 19:26] LABS: TOTAL PROTEIN 7.1 gm/dl (6.4-8.2)
[2017-11-15 19:58] LABS: HEMOGLOBIN A1C 7.1 % (4.5-5.6)
[2017-11-15] MEDS ORDERED: HYDROCORTISONE HC 2.5% CRM 30GM TUBE EXT ONE (20:30)
[2017-11-15] MEDS ORDERED: BENTYL HOME PACK 10 MG VIAL PO ONE (20:30)
[2017-11-15 20:48] VITALS: BP 132/66; PULSE 68; O2SAT 98
[2017-11-15] MEDS ORDERED: MISCCAP80 PO (21:44)
[2017-11-15] MEDS ORDERED: APIX1TAB3 PO (21:44)
[2017-11-15] MEDS ORDERED: CHOL100040 PO (21:44)
[2017-11-15] MEDS ORDERED: INSDGIPEN SQ (21:44)
[2017-11-15] MEDS ORDERED: NF34 TOP (21:44)
--- NOTE | 2017-11-15 23:45 | EMERGENCY ROOM VISIT NOTE ---
History Report prepared by Jeffrey: Dayron Christy Under the Supervision of: Dr. Sam Patricio M.D. First contact with patient: 18:14 Chief Complaint: RECTAL BLEEDING Stated Complaint: RECTAL BLEEDING,STOMACH CRAMPS,ON ELIQUIS Nursing Triage Summary: patient states she has a hx of colon spasms but has not had them for "a long time." patient states today he has had approximately 10 flares of colon spasms today. with each spasm she becomes incontinent of stool. patient noted small amount of bright red blood when she wiped. History of Present Illness The patient is an 81 year old female who presents to the Emergency Room with complaints of rectal bleeding that she first noticed at 1530, 3 hours prior to arrival. The patient stated that she has a chronic issue with "colon spasms" when she has colon spasms they cause small bowel movements of lose stool. She has had these for many years and was prescribed a medication for spasms in the past but is unsure of the name. She had many of these small lose bowel movements today and could feel her hemorrhoids "getting sore." She then noticed small amounts of blood on her toilet tissue. There was no blood in the stool, or in the toilet bowl. The patient has had rectal bleeding before and was informed that it was from hemorrhoid irritation. The patient is on Eliquis for multiple DVT. She had a colonoscopy 4 years ago. Pt denies LOC, headache, fevers, chills, diaphoresis, visual changes, neck pain, chest pain, breathing difficulties, nausea, vomiting, current abdominal pain, back pain, melena, urinary symptoms, numbness, weakness, lymphadenopathy, rash, or other complaints. Source of History: patient Onset: 3 hours COUNCIL ON AGING DIRECTOR Position: other (Rectal) Quality: other (Rectal Bleed) Note: Patient mentioned "colon Spasms" causing loose stools. Review of Systems See HPI for pertinent positives and negatives. A total of ten systems were reviewed and were otherwise negative. Past Medical & Surgical Medical Problems: (1) Benign hypertension (2) Cholecystectomy (3) Diabetes mellitus (4) Diverticulitis (5) Gastroesophageal reflux disease (6) History of - hysterectomy Family History No pertinent family history Social History Smoking Status: Never Smoker Alcohol Use: none Drug Use: none Marital Status: Housing Status: lives with family Occupation Status: retired Current/Historical Medications Scheduled Apixaban (Eliquis), 5 MG PO BID Atorvastatin (Atorvastatin Calcium), 10 MG PO DAILY Cholecalciferol (Vitamin D-1000), 1,000 INTER.UNIT PO DAILY Clobetasol Propionate (Clobetasol Propionate), 1 APPLN TOP 2-3XSWEEK Coenzyme Q10 (Ubidecarenone) (Co Q10), 30 MG PO DAILY Esomeprazole Magnesium (Esomeprazole Magnesium), 40 MG PO DAILY Insulin Glargine (Lantus Solostar), 24-26 UNITS SQ HS Insulin Lispro (Human) (Humalog Kwikpen), 4 UNITS SC UD Lisinopril (Lisinopril), 20 MG PO DAILY Multiple Vitamins W/ Minerals (Centrum Silver 50+Women), 1 TAB PO DAILY Nystatin (Topical) (Nystop), 1 APPLN TOP BID Probiotic Product (Probiotic), 1 CAP PO DAILY Ranitidine Hcl (Zantac), 300 MG PO HS Verapamil HCl (Verapamil HCl ER), 120 MG PO DAILY Scheduled PRN Aluminum Hydroxide-Mag Carb (Gaviscon), 15-30 ML PO UD PRN for Indigestion Allergies Coded Allergies: Penicillins (Verified Allergy, Intermediate, rash, 04/08/17) Sulfa Antibiotics (Verified Allergy, Intermediate, rash, 04/08/17) Atropine (Verified Allergy, Mild, PASSED OUT, 04/08/17) Cholestyramine (Verified Allergy, Mild, LIP SWELLING WITH PREVALITE (GEN QUESTRAN), 04/08/17) Cimetidine (Verified Allergy, Mild, INSOMNIA, 04/08/17) Diphenoxylate (Verified Allergy, Mild, PASSED OUT, 04/08/17) Ranitidine (Verified Allergy, Mild, INSOMNIA, 04/08/17) Sulfa Drugs (Verified Allergy, Mild, RASH, 04/08/17) Nitrofurantoin (Verified Allergy, Unknown, unkn, 04/08/17) Physical Exam Vital Signs Date Time Temp Pulse Resp B/P (MAP) Pulse Ox O2 Delivery O2 Flow Rate FiO2 11/15/17 20:48 68 18 132/66 98 Room Air 11/15/17 20:02 66 20 147/69 99 Room Air 11/15/17 19:12 73 18 134/67 98 Room Air 11/15/17 18:01 36.6 80 22 162/79 97 Room Air Physical Exam GENERAL: Awake, alert, well-appearing, in no distress HENT: Normocephalic, atraumatic. Oropharynx unremarkable. EYES: Normal conjunctiva. Sclera non-icteric. NECK: Supple. No nuchal rigidity. FROM. No JVD. RESPIRATORY: Clear to auscultation. CARDIAC: Regular rate, normal rhythm. Extremities warm and well perfused. Pulses equal. ABDOMEN: Soft, non-distended. No tenderness to palpation. No rebound or guarding. No masses. RECTAL: Has no active bleeding, there is mild hemorrhoid disease present. There is secondary excoriation noted. No masses, trace Hemoccult positive. MUSCULOSKELETAL: Chest examination reveals no tenderness. The back is symmetrical on inspection without obvious abnormality. There is no CVA tenderness to palpation. No joint edema. LOWER EXTREMITIES: Calves are equal size bilaterally and non-tender. No edema. No discoloration. NEURO: Normal sensorium. No sensory or motor deficits noted. SKIN: No rash or jaundice noted. Medical Decision & Procedures Laboratory Results 11/15/17 18:45 Red Blood Count 3.98, Mean Corpuscular Volume 94.2, Mean Corpuscular Hemoglobin 31.2, Mean Corpuscular Hemoglobin Concent 33.1, Mean Platelet Volume 10.0, Neutrophils (%) (Auto) 60.9, Lymphocytes (%) (Auto) 29.3, Monocytes (%) (Auto) 8.1, Eosinophils (%) (Auto) 1.1, Basophils (%) (Auto) 0.3, Neutrophils # (Auto) 3.90, Lymphocytes # (Auto) 1.88, Monocytes # (Auto) 0.52, Eosinophils # (Auto) 0.07, Basophils # (Auto) 0.02 11/15/17 18:45 Test 11/15/17 18:45 White Blood Count 6.41 K/uL (4.8-10.8) Red Blood Count 3.98 M/uL (4.2-5.4) Hemoglobin 12.4 g/dL (12.0-16.0) Hematocrit 37.5 % (37-47) Mean Corpuscular Volume 94.2 fL (80-100) Mean Corpuscular Hemoglobin 31.2 pg (25-34) Mean Corpuscular Hemoglobin Concent 33.1 g/dl (32-36) Platelet Count 201 K/uL (130-400) Mean Platelet Volume 10.0 fL (7.4-10.4) Neutrophils (%) (Auto) 60.9 % Lymphocytes (%) (Auto) 29.3 % Monocytes (%) (Auto) 8.1 % Eosinophils (%) (Auto) 1.1 % Basophils (%) (Auto) 0.3 % Neutrophils # (Auto) 3.90 K/uL (1.4-6.5) Lymphocytes # (Auto) 1.88 K/uL (1.2-3.4) Monocytes # (Auto) 0.52 K/uL (0.11-0.59) Eosinophils # (Auto) 0.07 K/uL (0-0.5) Basophils # (Auto) 0.02 K/uL (0-0.2) RDW Standard Deviation 47.9 fL (36.4-46.3) RDW Coefficient of Variation 13.8 % (11.5-14.5) Immature Granulocyte % (Auto) 0.3 % Immature Granulocyte # (Auto) 0.02 K/uL (0.00-0.02) Prothrombin Time 10.6 SECONDS (9.0-12.0) Prothromb Time International Ratio 1.0 (0.9-1.1) Activated Partial Thromboplast Time 25.7 SECONDS (21.0-31.0) Partial Thromboplastin Ratio 1.0 Anion Gap 10.0 mmol/L (3-11) Est Creatinine Clear Calc Drug Dose 46.2 ml/min Estimated GFR () 55.5 Estimated GFR (Non- 47.9 BUN/Creatinine Ratio 21.2 (10-20) Estimated Average Glucose 157 mg/dl Hemoglobin A1c 7.1 % (4.5-5.6) Calcium Level 9.1 mg/dl (8.5-10.1) Total Bilirubin 1.0 mg/dl (0.2-1) Direct Bilirubin 0.2 mg/dl (0-0.2) Aspartate Amino Transf (AST/SGOT) 15 U/L (15-37) Alanine Aminotransferase (ALT/SGPT) 25 U/L (12-78) Alkaline Phosphatase 83 U/L (45-117) Total Protein 7.1 gm/dl (6.4-8.2) Albumin 3.4 gm/dl (3.4-5.0) Laboratory results reviewed by me Medications Administered Medications (Trade) Dose Ordered Sig/Chantel Route Start Time Stop Time Status Last Admin Dose Admin Dicyclomine HCl (Dicyclomine HCl 10MG Home Pack) 1 ea UD ONCE PO 11/15/17 20:30 11/15/17 20:31 DC 11/15/17 20:40 1 EA Hydrocortisone (Proctozone Hc 2.5% Crm) 1 appln NOW ONCE EXT 11/15/17 20:30 11/15/17 20:31 DC 11/15/17 20:41 1 APPLN ED Course 1816: The patient was evaluated in room B12. A complete history and physical exam was performed. 1947: I checked on the patient at this time. I updated her on the findings of the case. 2029: Ordered Hydrocortisone 1 application EXT. 2029: Dicyclomine HCl 1 PO. 2039: I reevaluated the patient. Discussed results and discharge instructions: She verbalized understanding and agreement. The patient is ready for discharge. Medical Decision Prior records/ancillary studies reviewed. Triage Nursing notes reviewed and agree them. Additional history obtained from the significant other. The patient's history was concerning for possible gastrointestinal bleeding. Differential diagnosis: Etiologies such as fissure, hemorrhoids, diverticulosis, AVM, coagulopathy, colitis, inflammatory bowel disease, malignancy,Johana-Adkins tear, esophagitis , peptic ulcer disease, variceal bleed, gastritis, epistaxis, as well as others were entertained. Physical exam: As above. ER treatment provided: Anusol home pack Bentyl home pack On reassessment the patient felt better. Diagnostics interpreted by me: The labs revealed an unremarkable CBC and chemistry panel. No anemia. Coags unremarkable. Patient requested hemoglobin A1c and this was minimally elevated. She will follow-up with a piece before this. Imaging studies: Deferred The patient notes a long history of having episodes of bowel movements with some abdominal spasm or cramping. She has no abdominal pain whatsoever at this time. She is benign abdomen. This has gone on for numerous times over many years. The last time it occurred she was seen by her primary and was told it was her hemorrhoids. On physical examination here she does have some excoriation in the rectal area and hemorrhoids present. I suspect that this is the cause as she has brown stool but blood only when she wipes. The patient will follow-up with her primary physician. If she worsens in any way she will be back. I did discuss use of Anusol as well as a trial of Bentyl if the cramps recur. She thinks that this may be similar to what she was given in the past. By the evaluation outlined above other emergent etiologies such as those listed in the differential, as well as others, were deemed relatively unlikely. The patient was educated about the findings as listed above. All questions were answered and the patient was pleased with the treatment. Return instructions were outlined and the patient was discharged in stable condition. The patient was referred to her PCP for follow-up for a recheck of the current condition. Impression Primary Impression: Rectal bleed Additional Impression: Hemorrhoids Scribe Attestation The scribe's documentation has been prepared under my direction and personally reviewed by me in its entirety. I confirm that the note above accurately reflects all work, treatment, procedures, and medical decision making performed by me. Departure Information Dispostion Home / Self-Care Referrals Reza Mccallum M.D. (PCP) Patient Instructions My [facility] Problem Qualifiers
== END 2017-11-15 20:54 | disposition home or self-care (01) ==
LOC: C.EDB 17:50
DX: K62.5 Hemorrhage of anus and rectum (principal); K64.9 Unspecified hemorrhoids; I10 Essential (primary) hypertension; E11.9 Type 2 diabetes mellitus without complications; K57.92 Diverticulitis of intestine, part unspecified, without perforation or abscess without bleeding; K21.9 Gastro-esophageal reflux disease without esophagitis; Z79.4 Long term (current) use of insulin; Z79.899 Other long term (current) drug therapy

== ENCOUNTER 2017-11-28 17:44 | Emergency (ER) | payer OTHER ==
[~2017-11-28] VITALS: Ht 165.1 cm; Wt 88.0 kg
[~2017-11-28 17:44] MED LIST changes: +APIX1TAB3 PO; -ATOR10TA82 PO; +CHOL100040 PO; -DICY10CA12 PO; +ESOM1CAP34 PO; +INSDGIPEN SQ; +INSU100I2 SC; +LPT10 PO; +MISCCAP80 PO; +MULT-1092 PO; -MULT-506 PO; +NF34 TOP; -NXM/40 PO; +VERA120T65 PO
[2017-11-28 17:47] VITALS: TEMP 36.6; Ht 165.1 cm; Wt 88.0 kg
--- NOTE | 2017-11-28 18:13 | EMERGENCY ROOM VISIT NOTE ---
History Report prepared by Jeffrey: Isaías Pollard Under the Supervision of: Dr. Mook Jon M.D. First contact with patient: 17:53 Chief Complaint: LEG PAIN,LEG INJURY Stated Complaint: LEG PAIN- REDNESS FROM INJURY History of Present Illness The patient is an 82 year old female who presents to the Emergency Room with complaints of constant right foot pain for the past 10 days. She currently rates her discomfort as a 5/10 in severity. The patient states that she dropped a clothes iron on her right foot from about a foot high. She states that the iron was on, though she did not burn her foot. She states that she had an X-ray and had no broken bones, though last night she got right leg pain and her foot has turned red. She states that she has history of two blood clots last year, and she is currently on Eliquis, and she never misses any doses. She denies any chest pain or shortness of breath. The patient has a history of neuropathy in her legs, though she denies any new numbness or weakness. The patient additionally states that she is a diabetic. Source of History: patient Onset: 10 days ago Position: foot (right) Symptom Intensity: 5/10 Timing: constant Associated Symptoms: No chest pain, No SOB, No weakness, No numbness Note: Associated symptoms: foot redness and leg pain. Review of Systems See HPI for pertinent positives & negatives. A total of 10 systems reviewed and were otherwise negative. Past Medical & Surgical Medical Problems: (1) Benign hypertension (2) Cholecystectomy (3) Diabetes mellitus (4) Diverticulitis (5) Gastroesophageal reflux disease (6) History of - hysterectomy Old medical records were reviewed. Nurse's notes were reviewed and I agree with. Family History No pertinent family history Social History Smoking Status: Never Smoker Alcohol Use: none Drug Use: none Marital Status: Housing Status: lives with family Occupation Status: retired Current/Historical Medications Scheduled Apixaban (Eliquis), 5 MG PO BID Atorvastatin (Lipitor), 10 MG PO DAILY Cholecalciferol (Vitamin D-1000), 1,000 INTER.UNIT PO DAILY Clobetasol Propionate (Clobetasol Propionate), 1 APPLN TOP 2-3XSWEEK Coenzyme Q10 (Ubidecarenone) (Co Q10), 30 MG PO DAILY Esomeprazole Magnesium (Esomeprazole Magnesium), 40 MG PO DAILY Insulin Glargine (Lantus Solostar), 24-26 UNITS SQ HS Insulin Lispro (Human) (Humalog Kwikpen), 4 UNITS SC UD Levofloxacin (Levaquin), 500 MG PO DAILY Lisinopril (Lisinopril), 20 MG PO DAILY Multiple Vitamins W/ Minerals (Centrum Silver 50+Women), 1 TAB PO DAILY Nystatin (Topical) (Nystop), 1 APPLN TOP BID Probiotic Product (Probiotic), 1 CAP PO DAILY Ranitidine Hcl (Zantac), 300 MG PO HS Verapamil HCl (Verapamil HCl ER), 120 MG PO HS Scheduled PRN Aluminum Hydroxide-Mag Carb (Gaviscon), 15-30 ML PO UD PRN for Indigestion Allergies Coded Allergies: Penicillins (Verified Allergy, Intermediate, rash, 11/28/17) Sulfa Antibiotics (Verified Allergy, Intermediate, rash, 11/28/17) Atropine (Verified Allergy, Mild, PASSED OUT, 11/28/17) Cholestyramine (Verified Allergy, Mild, LIP SWELLING WITH PREVALITE (GEN QUESTRAN), 11/28/17) Cimetidine (Verified Allergy, Mild, INSOMNIA, 11/28/17) Diphenoxylate (Verified Allergy, Mild, PASSED OUT, 11/28/17) Ranitidine (Verified Allergy, Mild, INSOMNIA, 11/28/17) Sulfa Drugs (Verified Allergy, Mild, RASH, 11/28/17) Nitrofurantoin (Verified Allergy, Unknown, unkn, 11/28/17) Physical Exam Vital Signs Date Time Temp Pulse Resp B/P (MAP) Pulse Ox O2 Delivery O2 Flow Rate FiO2 11/28/17 17:47 36.6 78 18 168/87 96 Room Air Physical Exam General: Non-ill appearing older female in no acute distress. HEENT: Normal cephalic atraumatic. Pupils are equal round and reactive to light. Extraocular movements are intact. Oropharynx is pink with moist mucous membranes. No swelling of the mouth lips or tongue. Neck: Supple with a midline trachea. No meningeal signs or stiffness, no JVD or bruits. No Stridor. Chest: Clear to auscultation bilaterally. No wheezes or rhonchi. No increased work of breathing. Heart: regular rate and rhythm. Abdomen: Soft nontender, nondistended without rebound guarding or rigidity. Extremities: Bruising in her right foot with a slight pinkish discoloration. Minimal warmth. Good capillary refill. Bounding distal pulses. Normal motor and sensation. Spine/Back. Non tender to palpation. No CVA tenderness Skin: Good turgor without rashes. Neurologic exam: Cranial nerves two through 12 are intact. Motor and sensation are intact and symmetrical throughout. Medical Decision & Procedures ER Provider Diagnostic Interpretation: Radiology results as stated below per my review and radiologist interpretation: R VENOUS DOPP LOWER EXT UNILAT HISTORY: 82 years-old Female eval for DVT acute right leg pain and swelling COMPARISON: Duplex venous Doppler study 06/25/2017 TECHNIQUE: Multiple real-time significant images of the right lower extremity deep venous structures were obtained assessing grayscale appearance, color and spectral flow. FINDINGS: Nonocclusive thrombus is again seen within the distal portion of the popliteal vein, unchanged from comparison. Previously noted thrombus within the peroneal vein not clearly seen. The remaining deep venous structures are patent. The patient was unable to tolerate compression within the mid and distal portions of the superficial femoral vein. IMPRESSION: 1. No acute deep venous thrombosis identified. 2. 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 The above report was generated using voice recognition software. It may contain grammatical, syntax or spelling errors. Electronically signed by: Matt Rodriguez M.D. 11/28/2017 7:22 PM Dictated Date/Time: 11/28/2017 7:21 PM R FOOT MIN 3 VIEWS ROUTINE HISTORY: 82 years-old Female eval for trauma acute right foot pain status post trauma COMPARISON: None available TECHNIQUE: 3 views of the right foot FINDINGS: The bones appear mildly demineralized. Moderate degenerative changes are present within the first MTP joint with prominent spurring along the medial base of the first proximal phalanx. Moderate interphalangeal degenerative changes are seen throughout. No acute fracture or subluxation identified. Moderate enthesophytes about the Achilles and plantar insertion sites about the calcaneus. Mild dorsal spurring about the midfoot. Mild soft tissue swelling of the dorsal foot. There are 2 cannulated screws present within the base of the first metatarsal. IMPRESSION: 1. Degenerative changes and osteopenia as above without acute fracture or subluxation. 2. Intact cannulated screws involve the base of the first metatarsal. 3. Mild dorsal forefoot and midfoot soft tissue swelling. 4. Moderate sized enthesophytes about the calcaneus. The above report was generated using voice recognition software. It may contain grammatical, syntax or spelling errors. Electronically signed by: Matt Rodriguez M.D. 11/28/2017 7:25 PM Dictated Date/Time: 11/28/2017 7:23 PM Laboratory Results 11/28/17 18:22 Red Blood Count 4.06, Mean Corpuscular Volume 94.1, Mean Corpuscular Hemoglobin 31.3, Mean Corpuscular Hemoglobin Concent 33.2, Mean Platelet Volume 10.1, Neutrophils (%) (Auto) 58.1, Lymphocytes (%) (Auto) 28.1, Monocytes (%) (Auto) 11.1, Eosinophils (%) (Auto) 2.3, Basophils (%) (Auto) 0.2, Neutrophils # (Auto ) 3.29, Lymphocytes # (Auto) 1.59, Monocytes # (Auto) 0.63, Eosinophils # (Auto ) 0.13, Basophils # (Auto) 0.01 11/28/17 18:22 Test 11/28/17 18:22 11/28/17 18:57 White Blood Count 5.66 K/uL (4.8-10.8) Red Blood Count 4.06 M/uL (4.2-5.4) Hemoglobin 12.7 g/dL (12.0-16.0) Hematocrit 38.2 % (37-47) Mean Corpuscular Volume 94.1 fL (80-100) Mean Corpuscular Hemoglobin 31.3 pg (25-34) Mean Corpuscular Hemoglobin Concent 33.2 g/dl (32-36) Platelet Count 215 K/uL (130-400) Mean Platelet Volume 10.1 fL (7.4-10.4) Neutrophils (%) (Auto) 58.1 % Lymphocytes (%) (Auto) 28.1 % Monocytes (%) (Auto) 11.1 % Eosinophils (%) (Auto) 2.3 % Basophils (%) (Auto) 0.2 % Neutrophils # (Auto) 3.29 K/uL (1.4-6.5) Lymphocytes # (Auto) 1.59 K/uL (1.2-3.4) Monocytes # (Auto) 0.63 K/uL (0.11-0.59) Eosinophils # (Auto) 0.13 K/uL (0-0.5) Basophils # (Auto) 0.01 K/uL (0-0.2) RDW Standard Deviation 46.4 fL (36.4-46.3) RDW Coefficient of Variation 13.5 % (11.5-14.5) Immature Granulocyte % (Auto) 0.2 % Immature Granulocyte # (Auto) 0.01 K/uL (0.00-0.02) Prothrombin Time 10.3 SECONDS (9.0-12.0) Prothromb Time International Ratio 1.0 (0.9-1.1) Activated Partial Thromboplast Time 26.3 SECONDS (21.0-31.0) Partial Thromboplastin Ratio 1.0 Anion Gap 11.0 mmol/L (3-11) Est Creatinine Clear Calc Drug Dose 43.9 ml/min Estimated GFR () 54.5 Estimated GFR (Non- 47.0 BUN/Creatinine Ratio 21.0 (10-20) Calcium Level 9.4 mg/dl (8.5-10.1) Laboratory studies as stated above per my review. ED Course 175: Past medical records reviewed. The patient was evaluated in room B7, and a complete history and physical examination were performed. 193: Levofloxacin 500mg PO 1938: Upon reevaluation, the patient is doing well. I discussed the results and treatment plan with her. She verbalized agreement of the treatment plan. The patient was discharged home. Medical Decision Differentials include, but are not limited to; DVT, fracture, electrolyte or metabolic abnormality This patient comes in as described above. She was placed in room B7. She comes in with some pain and swelling in her right leg. She dropped an iron on her foot about 10 days ago. She currently had x-rays. She is concerned that a , little more red and swollen today. She has no systemic complaints such as fever. She has no chest pain or shortness of breath. She has no numbness or weakness on exam and has bounding pulses and no evidence arterial compromise. Blood work was obtained and she declined an IV initially. X-ray and ultrasound were obtained of the leg as well as blood work. She was reassessed frequently. X-rays do not show any acute fracture or abnormality. Ultrasound shows no acute DVT there is some chronic changes unchanged from previous. She has no fever or white count to suggest significant infection here. There is no significant electrolyte or metabolic abnormalities. The foot is slightly red but not acutely warm and it could be an early cellulitis and I think I will put her on an antibiotic. She does have multiple antibiotic sensitivities/ allergies. She's done okay with Levaquin so will start her on this Levaquin 500 mg by mouth here as well as prescription for Levaquin 500 mg once a day for 7 days. She has an appointment see Dr. Mccallum in a day and a half on Wednesday which I told her to keep. I told her to have this rechecked in this try to keep it elevated return to the ER if: fever or increasing redness or swelling, worsening of symptoms, numbness weakness, any problems concerns. She is happy with plan and discharged to home. Medication Reconcilliation Current Medication List: was personally reviewed by me Blood Pressure Screening Patient's blood pressure: Elevated blood pressure Blood pressure disposition: Elevated BP felt to be situational Impression Primary Impression: Right foot pain Additional Impression: Cellulitis Scribe Attestation The scribe's documentation has been prepared under my direction and personally reviewed by me in its entirety. I confirm that the note above accurately reflects all work, treatment, procedures, and medical decision making performed by me. Departure Information Dispostion Home / Self-Care Prescriptions Levofloxacin (Levaquin) 500 Mg Tab 500 MG PO DAILY, #7 TAB Prov: Mook Jon M.D. 11/28/17 Referrals Reza Mccallum M.D. (PCP) Forms HOME CARE DOCUMENTATION FORM, IMPORTANT VISIT INFORMATION Patient Instructions My [facility] Additional Instructions Rest Elevate. Use Levaquin 500 milligrams once a day for 7 days Follow-up with Dr. Mccallum on Wednesday, keep your appointment. Return if: increasing redness or swelling, chest pain or shortness of breath, fever or chills, numbness of weakness, worsening symptoms in any way, any new problems or concerns. Problem Qualifiers
[2017-11-28 18:34] LABS: BASO % 0.2 %; BASO ABS # 0.01 K/uL (0-0.2); EOS % 2.3 %; EOS ABS # 0.13 K/uL (0-0.5); HEMATOCRIT 38.2 % (37-47); HEMOGLOBIN 12.7 g/dL (12.0-16.0); IG# 0.01 K/uL (0.00-0.02); LYMPH % 28.1 %; LYMPH ABS # 1.59 K/uL (1.2-3.4); MEAN CELL VOLUME 94.1 fL (80-100); MEAN CORPUSCULAR HEMOGLOBIN 31.3 pg (25-34); MEAN CORPUSCULAR HGB CONC 33.2 g/dl (32-36); MEAN PLATELET VOLUME 10.1 fL (7.4-10.4); MONO % 11.1 %; MONO ABS # 0.63 K/uL (0.11-0.59); NEUT % 58.1 %; NEUT ABS # 3.29 K/uL (1.4-6.5); PLATELET COUNT 215 K/uL (130-400); RED CELL DISTRIBUTION WIDTH CV 13.5 % (11.5-14.5); RED CELL DISTRIBUTION WIDTH SD 46.4 fL (36.4-46.3); WHITE BLOOD COUNT 5.66 K/uL (4.8-10.8)
[2017-11-28 18:49] LABS: PTT PATIENT 26.3 SECONDS (21.0-31.0)
[2017-11-28 18:50] LABS: CALCIUM 9.4 mg/dl (8.5-10.1); CREATININE 1.1 mg/dl (0.60-1.20); POTASSIUM 3.9 mmol/L (3.5-5.1)
--- NOTE | 2017-11-28 19:24 | DIAGNOSTIC IMAGING REPORT ---
R VENOUS DOPP LOWER EXT UNILAT HISTORY: 82 years-old Female eval for DVT acute right leg pain and swelling COMPARISON: Duplex venous Doppler study 06/25/2017 TECHNIQUE: Multiple real-time significant images of the right lower extremity deep venous structures were obtained assessing grayscale appearance, color and spectral flow. FINDINGS: Nonocclusive thrombus is again seen within the distal portion of the popliteal vein, unchanged from comparison. Previously noted thrombus within the peroneal vein not clearly seen. The remaining deep venous structures are patent. The patient was unable to tolerate compression within the mid and distal portions of the superficial femoral vein. IMPRESSION: 1. No acute deep venous thrombosis identified. 2. 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 The above report was generated using voice recognition software. It may contain grammatical, syntax or spelling errors. Electronically signed by: Matt Rodriguez M.D. 11/28/2017 7:22 PM Dictated Date/Time: 11/28/2017 7:21 PM
--- NOTE | 2017-11-28 19:26 | DIAGNOSTIC IMAGING REPORT ---
R FOOT MIN 3 VIEWS ROUTINE HISTORY: 82 years-old Female eval for trauma acute right foot pain status post trauma COMPARISON: None available TECHNIQUE: 3 views of the right foot FINDINGS: The bones appear mildly demineralized. Moderate degenerative changes are present within the first MTP joint with prominent spurring along the medial base of the first proximal phalanx. Moderate interphalangeal degenerative changes are seen throughout. No acute fracture or subluxation identified. Moderate enthesophytes about the Achilles and plantar insertion sites about the calcaneus. Mild dorsal spurring about the midfoot. Mild soft tissue swelling of the dorsal foot. There are 2 cannulated screws present within the base of the first metatarsal. IMPRESSION: 1. Degenerative changes and osteopenia as above without acute fracture or subluxation. 2. Intact cannulated screws involve the base of the first metatarsal. 3. Mild dorsal forefoot and midfoot soft tissue swelling. 4. Moderate sized enthesophytes about the calcaneus. The above report was generated using voice recognition software. It may contain grammatical, syntax or spelling errors. Electronically signed by: Matt Rodriguez M.D. 11/28/2017 7:25 PM Dictated Date/Time: 11/28/2017 7:23 PM
[2017-11-28] MEDS ORDERED: LEVOFLOXACIN 500 MG TAB PO STA (19:36)
[2017-11-28] MEDS ORDERED: LEVO-366 PO (19:41)
[2017-11-28 20:17] VITALS: BP 144/94; PULSE 85; O2SAT 97
== END 2017-11-28 20:19 | disposition home or self-care (01) ==
LOC: C.EDB 17:46
DX: M79.671 Pain in right foot (principal); L03.115 Cellulitis of right lower limb; S90.31XA Contusion of right foot, initial encounter; W20.8XXA Other cause of strike by thrown, projected or falling object, initial encounter; E11.40 Type 2 diabetes mellitus with diabetic neuropathy, unspecified; I10 Essential (primary) hypertension; K21.9 Gastro-esophageal reflux disease without esophagitis; Z79.01 Long term (current) use of anticoagulants; Z79.4 Long term (current) use of insulin; Z86.718 Personal history of other venous thrombosis and embolism; Z90.710 Acquired absence of both cervix and uterus

== ENCOUNTER → 2018-01-31 | Outpatient (CLI) | payer OTHER ==
[~2018-01-31] MED LIST changes: +LEVO-366 PO
--- NOTE | 2018-01-31 16:13 | DIAGNOSTIC IMAGING REPORT ---
ORBITS BILATERAL MIN 4 VIEWS CLINICAL HISTORY: FACIAL TRAUMA COMPARISON STUDY: None FINDINGS: There is no evidence of orbital emphysema. No fractures are visualized on conventional radiographic imaging. IMPRESSION: No fractures identified on conventional radiographic imaging. Electronically signed by: Jeffrey Ruano M.D. 01/31/2018 4:12 PM Dictated Date/Time: 01/31/2018 4:11 PM
--- NOTE | 2018-01-31 16:25 | DIAGNOSTIC IMAGING REPORT ---
FACIAL BONES MIN 3 VIEWS RTN CLINICAL HISTORY: Facial pain status post trauma COMPARISON STUDY: No previous studies for comparison. FINDINGS: There are no Max sinus air-fluid levels. There is no orbital emphysema. No fractures are visualized on conventional radiographic imaging. IMPRESSION: No fractures identified on conventional radiographic imaging. Electronically signed by: Jeffrey Ruano M.D. 01/31/2018 4:24 PM Dictated Date/Time: 01/31/2018 4:24 PM
== END | disposition home or self-care (01) ==
LOC: C.RAD 15:22
PROVIDERS: ATTEND Nurse Practitioner Adult Health
DX: S09.90XA Unspecified injury of head, initial encounter (principal); X58.XXXA Exposure to other specified factors, initial encounter

== ENCOUNTER → 2018-02-21 | Day surgery (SDC) | payer OTHER ==
[2018-02-18 10:31] VITALS: Ht 160 cm; Wt 85.5 kg
[~2018-02-21] VITALS: Ht 160 cm; Wt 85.5 kg
[~2018-02-21] MED LIST changes: +ALUMCHW2 PO; -ALUMSUS21 PO; +CHOL100010 PO; -CHOL100040 PO; +COEN100C7 PO; -COEN1CAP PO; +ESOM1CAP24 PO; -ESOM1CAP34 PO; +INSDGI SC; -INSDGIPEN SQ; -INSU100I2 SC; -LEVO-366 PO; +LIDOCAINE HCL 2% 2 ML VIAL (20MG/ML) ONE; +LISI20TA3 PO; -LSN20 PO; +MECL1TAB42 PO; -MISCCAP80 PO; -NF34 TOP; +NVLG SC; -NYST100010 TOP; +PROB1TAB16 PO; +PROPOFOL IV EMULSION 10 MG/ML 20 ML VIAL IV ONE; +RANI150T85 PO; -RANI300T PO; +SODIUM CHLORIDE 0.9% 500ML 500 ML IV ONE; +VERA120T15 PO; -VERA120T65 PO
--- NOTE | 2018-02-21 14:17 | Endo History and Physical ---
History & Physical Date of Service: Feb 21, 2018. Chief Complaint: Delayed gastric emptying, GERD Referring Physician: Dr. Reza Mccallum History of Present Illness 82 yo CF who presents for EGD secondary to GERD Past Surgical History Hx Cardiac Surgery: Yes (HEART CATH/NO STENTS) Hx Internal Defibrillator: No Hx Pacemaker: No Hx Abdominal Surgery: Yes (XOCHITL, HYSTERECTOMY, UMBILICAL HERNIA REPAIR) Hx of Implantable Prosthesis: No Hx Post-Op Nausea and Vomiting: No Hx Cancer Surgery: No Hx Thoracic Surgery: No Hx Orthopedic: Yes (LEFT SHOULDER SURGERY, RT/LEFT BUNIONECTOMY) Hx Urinary Tract Surgery: No Family History Colon CA Social History Smoking Status: Never Smoker Hx Substance Use: No Hx Alcohol Use: No Allergies Coded Allergies: Penicillins (Verified Allergy, Intermediate, rash, 02/18/18) Sulfa Antibiotics (Verified Allergy, Intermediate, rash, 02/18/18) Atropine (Verified Allergy, Mild, PASSED OUT, 02/18/18) Cholestyramine (Verified Allergy, Mild, LIP SWELLING WITH PREVALITE (GEN QUESTRAN), 02/18/18) Cimetidine (Verified Allergy, Mild, INSOMNIA, 02/18/18) Diphenoxylate (Verified Allergy, Mild, PASSED OUT, 02/18/18) Ranitidine (Verified Allergy, Mild, INSOMNIA, 02/18/18) Sulfa Drugs (Verified Allergy, Mild, RASH, 02/18/18) Nitrofurantoin (Verified Allergy, Unknown, unkn, 02/18/18) Current Medications Reported Home Medications Medications Dose Route/Sig Max Daily Dose Days Date Category Dose Instructions Nexium 24Hr (Esomeprazole Magnesium) 20 Mg Cap 1 Cap PO BID 02/18/18 Reported Vitamin D (Cholecalciferol) 1,000 Unit Tab 1 Tab PO QPM 02/18/18 Reported Calan (Verapamil HCl) 120 Mg Tab 120 Mg PO HS 02/18/18 Reported Zantac (Ranitidine HCl) 150 Mg Tab 150 Mg PO QPM 02/18/18 Reported Probiotic (Probiotic Product) 1 Tab Tab 1 Tab PO DAILY AT LUNCH 02/18/18 Reported Meclizine Hcl 25 Mg Tab 1 Tab PO TID PRN 02/18/18 Reported Prinivil (Lisinopril) 20 Mg Tab 20 Mg PO QAM 02/18/18 Reported Gaviscon (Aluminum Hydroxide-Mag Trisil) 1 Chw Chw 1 Dose PO A DIRECTED PRN 02/18/18 Reported Novolog (Insulin Aspart) 100 Units/Ml Inj 1 Dose SC BID 02/18/18 Reported TAKES 6 UNITS AT LUNCH TAKES 8 UNITS AT SUPPER Lantus (Insulin Glargine) 100 Unit/Ml Inj 28 SC QPM 02/18/18 Reported Eliquis (Apixaban) 5 Mg Tab 5 Mg PO BID 02/18/18 Reported Coq10 (Coenzyme Q10 (Ubidecarenone)) 100 Mg Cap 1 Cap PO QPM 02/18/18 Reported Centrum Silver 50+Women (Multiple Vitamins W/ Minerals) 1 Tab Tab 1 Tab PO QAM 02/18/18 Reported Lipitor (Atorvastatin Calcium) 10 Mg Tab 10 Mg PO QPM 11/15/17 Reported Vital Signs Weight (Kilograms): 85.45 Height (Feet): 5 Height (Inches): 3 Date Time Temp Pulse Resp B/P (MAP) Pulse Ox O2 Delivery O2 Flow Rate FiO2 02/21/18 13:49 36.4 71 18 165/78 (107) 97 Room Air Physical Exam General Appearance: WD/WN, no apparent distress Respiratory/Chest: Auscultation: breath sounds normal Cardiovascular: Heart Auscultation: RRR Abdomen: Bowel Sounds: normal Inspection & Palpation: soft, non-distended, no tenderness, guarding & rebound Assessment and Plan Assessment: 82 yo CF who presents for EGD secondary to GERD Plan: Proceed with EGD.
--- NOTE | 2018-02-21 15:08 | Discharge Instructions ---
Endoscopy Patient Instructions Date / Procedure(s) Performed Feb 21, 2018. EGD Allergy Information Coded Allergies: Penicillins (Verified Allergy, Intermediate, rash, 02/18/18) Sulfa Antibiotics (Verified Allergy, Intermediate, rash, 02/18/18) Atropine (Verified Allergy, Mild, PASSED OUT, 02/18/18) Cholestyramine (Verified Allergy, Mild, LIP SWELLING WITH PREVALITE (GEN QUESTRAN), 02/18/18) Cimetidine (Verified Allergy, Mild, INSOMNIA, 02/18/18) Diphenoxylate (Verified Allergy, Mild, PASSED OUT, 02/18/18) Ranitidine (Verified Allergy, Mild, INSOMNIA, 02/18/18) Sulfa Drugs (Verified Allergy, Mild, RASH, 02/18/18) Nitrofurantoin (Verified Allergy, Unknown, unkn, 02/18/18) Discharge Date / Findings Feb 21, 2018. Gastritis s/p biopsies Hiatal hernia Medication Instructions Stopped Medication(s): Patient was told to stop everything except her nexium and lisinopril this am. OK to resume all medications today as prescribed Reported Home Medications Medications Dose Route/Sig Max Daily Dose Days Date Category Dose Instructions Nexium 24Hr (Esomeprazole Magnesium) 20 Mg Cap 1 Cap PO BID 02/18/18 Reported Vitamin D (Cholecalciferol) 1,000 Unit Tab 1 Tab PO QPM 02/18/18 Reported Calan (Verapamil HCl) 120 Mg Tab 120 Mg PO HS 02/18/18 Reported Zantac (Ranitidine HCl) 150 Mg Tab 150 Mg PO QPM 02/18/18 Reported Probiotic (Probiotic Product) 1 Tab Tab 1 Tab PO DAILY AT LUNCH 02/18/18 Reported Meclizine Hcl 25 Mg Tab 1 Tab PO TID PRN 02/18/18 Reported Prinivil (Lisinopril) 20 Mg Tab 20 Mg PO QAM 02/18/18 Reported Gaviscon (Aluminum Hydroxide-Mag Trisil) 1 Chw Chw 1 Dose PO A DIRECTED PRN 02/18/18 Reported Novolog (Insulin Aspart) 100 Units/Ml Inj 1 Dose SC BID 02/18/18 Reported TAKES 6 UNITS AT LUNCH TAKES 8 UNITS AT SUPPER Lantus (Insulin Glargine) 100 Unit/Ml Inj 28 SC QPM 02/18/18 Reported Eliquis (Apixaban) 5 Mg Tab 5 Mg PO BID 02/18/18 Reported Coq10 (Coenzyme Q10 (Ubidecarenone)) 100 Mg Cap 1 Cap PO QPM 02/18/18 Reported Centrum Silver 50+Women (Multiple Vitamins W/ Minerals) 1 Tab Tab 1 Tab PO QAM 02/18/18 Reported Lipitor (Atorvastatin Calcium) 10 Mg Tab 10 Mg PO QPM 11/15/17 Reported Provider Instructions Activity Restrictions - No exercising or heavy lifting for 24 hours. - Do not drink alcohol the day of the procedure. - Do not drive a car or operate machinery until the day after the procedure. - Do not make any important decisions or sign important papers in 24 hours after the procedure. Following Day: - Return to full activity which may include returning to work/school. Diet Start your diet with liquids and light foods (jello, soup, juice, toast). Then eat your usual diet if not nauseated. Treatment For Common After Affects For mild abdominal pain, bloating, or excessive gas: - Rest - Eat lightly - Lie on right side Follow-Up Information Follow-up with Dr. Reza Mccallum as scheduled Anesthesia Information What You Should Know You have had a procedure that required some medicine to reduce anxiety and discomfort. This treatment is called moderate sedation. After receiving the treatment, you may be sleepy, but you will be able to breathe on your own. The effects of the treatment may last for several hours. Follow these instructions along with Activity/Diet recommendations noted above: * Do NOT do anything where dizziness or clumsiness would be dangerous. * Rest quietly at home today, then you can be up and about tomorrow. * Have a responsible person stay with you the rest of today. * You may have had an I.V. today. If so, you may take the dressing off later today. Recommendations Call your doctor if: * Trouble breathing * Continuous vomiting for more than 24 hours * Temperature above 101 degrees * Severe abdominal pain or bloating * Pain not relieved by pain medicine ordered * There is increased drainage or redness from any incision * A large amount of rectal bleeding greater than 2-3 tablespoons. (If you had a polyp/s removed or have hemorrhoids, a small amount of blood - from the rectum is to be expected.) * You have any unanswered questions or concerns. IN THE EVENT OF A SERIOUS EMERGENCY, GO TO THE NEAREST EMERGENCY ROOM Your discharge instructions were prepared by provider Devan Munguia. Patient Instructions Signature Page Isi Shaffer Patient (or Guardian) Signature/Date: I have read and understand the instructions given to me by my caregivers. Caregiver/RN/Doctor Signature/Date: The above-named patient and/or guardian has received patient instructions on this date. + Original Patient Signature Page (only) stays with chart. Please make copy for patient.
--- NOTE | 2018-02-21 15:19 | Anesthesiology Progress Note ---
Anesthesia Post Op Note Date & Time Feb 21, 2018 at 15:19 Vital Signs Pain Intensity: 0 Vital Signs Past 12 Hours Date Time Temp Pulse Resp B/P (MAP) Pulse Ox O2 Delivery O2 Flow Rate FiO2 02/21/18 13:49 36.4 71 18 165/78 (107) 97 Room Air Notes Mental Status: alert / awake / arousable, participated in evaluation Pt Amnestic to Procedure: Yes Nausea / Vomiting: adequately controlled Pain: adequately controlled Airway Patency, RR, SpO2: stable & adequate BP & HR: stable & adequate Hydration State: stable & adequate Anesthetic Complications: no major complications apparent
[2018-02-21 15:40] VITALS: BP 123/74; PULSE 69; O2SAT 98
--- NOTE | 2018-02-21 15:56 | GI REPORT ---
Procedure Date: 02/21/2018 2:40 PM Procedure: Upper GI endoscopy Indications: Gastro-esophageal reflux disease Medicines: Monitored Anesthesia Care Complications: No immediate complications. Estimated Blood Loss: Estimated blood loss: none. Procedure: Pre-Anesthesia Assessment: - Prior to the procedure, a History and Physical was performed, and patient medications and allergies were reviewed. The patient's tolerance of previous anesthesia was also reviewed. The risks and benefits of the procedure and the sedation options and risks were discussed with the patient. All questions were answered, and informed consent was obtained. Prior Anticoagulants: The patient has taken Xarelto (rivaroxaban), last dose was 3 days prior to procedure. ASA Grade Assessment: III - A patient with severe systemic disease. After reviewing the risks and benefits, the patient was deemed in satisfactory condition to undergo the procedure. After obtaining informed consent, the endoscope was passed under direct vision. Throughout the procedure, the patient's blood pressure, pulse, and oxygen saturations were monitored continuously. The scope was introduced through the mouth, and advanced to the second part of duodenum. The upper GI endoscopy was accomplished without difficulty. The patient tolerated the procedure well. Findings: The esophagus was normal. A small hiatal hernia was present. Localized mild inflammation characterized by erythema was found in the gastric antrum. Biopsies were taken with a cold forceps for histology. The examined duodenum was normal. Impression: - Normal esophagus. - Small hiatal hernia. - Gastritis. Biopsied. - Normal examined duodenum. Recommendation: - Resume previous diet. - Continue present medications. - Await pathology results. - Return to primary care physician as previously scheduled. Devan Munguia, 02/21/2018 3:56:25 PM This report has been signed electronically. Note Initiated On: 02/21/2018 2:40 PM I attest to the content of the Intraoperative Record and orders documented therein, exceptions below
== END | disposition home or self-care (01) ==
LOC: C.GI 13:16
PROVIDERS: ATTEND Internal Medicine
DX: K21.9 Gastro-esophageal reflux disease without esophagitis (principal); K30 Functional dyspepsia; K29.50 Unspecified chronic gastritis without bleeding; K44.9 Diaphragmatic hernia without obstruction or gangrene; E11.9 Type 2 diabetes mellitus without complications; E78.5 Hyperlipidemia, unspecified; I10 Essential (primary) hypertension; Z80.0 Family history of malignant neoplasm of digestive organs; Z88.0 Allergy status to penicillin; Z88.2 Allergy status to sulfonamides; Z88.8 Allergy status to other drugs, medicaments and biological substances; Z79.899 Other long term (current) drug therapy; Z79.4 Long term (current) use of insulin; Z86.73 Personal history of transient ischemic attack (TIA), and cerebral infarction without residual deficits

== ENCOUNTER → 2018-02-25 | Outpatient (CLI) | payer OTHER ==
[~2018-02-25] MED LIST changes: -LIDOCAINE HCL 2% 2 ML VIAL (20MG/ML) ONE; -PROPOFOL IV EMULSION 10 MG/ML 20 ML VIAL IV ONE; -SODIUM CHLORIDE 0.9% 500ML 500 ML IV ONE
[2018-02-25 13:02] LABS: BASO % 0.5 %; BASO ABS # 0.03 K/uL (0-0.2); EOS % 4.2 %; EOS ABS # 0.23 K/uL (0-0.5); HEMATOCRIT 38.1 % (37-47); HEMOGLOBIN 12.5 g/dL (12.0-16.0); IG# 0.01 K/uL (0.00-0.02); LYMPH % 33.9 %; LYMPH ABS # 1.85 K/uL (1.2-3.4); MEAN CELL VOLUME 92.5 fL (80-100); MEAN CORPUSCULAR HEMOGLOBIN 30.3 pg (25-34); MEAN CORPUSCULAR HGB CONC 32.8 g/dl (32-36); MEAN PLATELET VOLUME 10.5 fL (7.4-10.4); MONO % 10.1 %; MONO ABS # 0.55 K/uL (0.11-0.59); NEUT % 51.1 %; NEUT ABS # 2.79 K/uL (1.4-6.5); PLATELET COUNT 228 K/uL (130-400); RED CELL DISTRIBUTION WIDTH CV 14.2 % (11.5-14.5); WHITE BLOOD COUNT 5.46 K/uL (4.8-10.8)
[2018-02-25 14:05] LABS: BLOOD UREA NITROGEN 24 mg/dl (7-18); CREATININE 1.19 mg/dl (0.60-1.20); GLUCOSE 162 mg/dl (70-99)
[2018-02-25 14:06] LABS: ALBUMIN 3.3 gm/dl (3.4-5.0); ALT/SGPT 23 U/L (12-78); AST/SGOT 17 U/L (15-37); CALCIUM 9.2 mg/dl (8.5-10.1); CARBON DIOXIDE 22 mmol/L (21-32); CHOLESTEROL 131 mg/dl (0-200); POTASSIUM 4.1 mmol/L (3.5-5.1); SODIUM 136 mmol/L (136-145)
[2018-02-25 14:08] LABS: ALKALINE PHOSPHATASE 81 U/L (45-117); LDL CHOLESTEROL CALCULATED 44 mg/dl; TOTAL PROTEIN 6.8 gm/dl (6.4-8.2)
== END | disposition home or self-care (01) ==
LOC: C.LABPBG 09:01
PROVIDERS: ATTEND Internal Medicine Geriatric Medicine
DX: I12.9 Hypertensive chronic kidney disease with stage 1 through stage 4 chronic kidney disease, or unspecified chronic kidney disease (principal); E11.22 Type 2 diabetes mellitus with diabetic chronic kidney disease; E78.5 Hyperlipidemia, unspecified; N18.3 Chronic kidney disease, stage 3 (moderate); D64.9 Anemia, unspecified

== ENCOUNTER → 2018-03-03 | Outpatient (CLI) | payer OTHER ==
[~2018-03-03] MED LIST changes: +OPTIRAY 320 IV PRN
--- NOTE | 2018-03-03 14:30 | DIAGNOSTIC IMAGING REPORT ---
ABDOMEN AND PELVIS CT WITH IV AND ORAL CONTRAST CT DOSE: 1012.28 mGycm HISTORY: RECURRENT VENTRAL HERNIA C= 1.19 02/25/18 TECHNIQUE: Multiaxial CT images of the abdomen and pelvis were performed following the use of intravenous and oral contrast. A dose lowering technique was utilized adhering to the principles of ALARA. COMPARISON STUDY: Abdomen and pelvis CT 11/09/2014. FINDINGS: Mild interstitial thickening at the lung bases. No pneumoperitoneum. No pneumatosis. No suspicious lytic or blastic osseous lesions. There is small bilateral fat-containing umbilical hernia. The neck of the hernia measures 3.1 cm. The hernia sac measures up to 4.7 cm. There is no bowel within the hernia the time. There is a small bowel loop which is seen at the opening of the hernia. There is a fat-containing right inguinal hernia, unchanged. Increase in size in the 3.5 cm left ovarian cyst. This previously measured 2.4 cm. Hysterectomy. Colonic diverticulosis. No bowel wall thickening or obstruction. Normal appendix. A 4 mm fat-containing lesion within the right hepatic dome. This is consistent with a small lipoma. Cholecystectomy. As also a 5 mm hypodense lesion within the posterior segment of the right hepatic lobe. This is too small to characterize but favors a cyst. The spleen and adrenal glands are unremarkable. No hydronephrosis. Small bilateral peripelvic cysts. No retroperitoneal lymphadenopathy. Mild calcified plaque within the normal caliber abdominal aorta. There are 2 hypodense lesions within the pancreatic head and neck. The largest at the pancreatic head measures 1.7 cm. These were likely present on the prior study are not significant changed in size. Therefore, these favor side branch intraductal papillary mucinous neoplasms. IMPRESSION: 1. Small fat-containing umbilical hernia as described above. 2. Small fat-containing right inguinal hernia. 3. Increase in size in the 3.5 cm left ovarian cyst. This is considered pathologic in a postmenopausal female. Therefore, neoplasm is the diagnosis of exclusion. Gynecologic consultation is recommended. 4. There are 2 hypodense lesions within the pancreas. These favor small side branch intraductal papillary mucinous neoplasms. 5. Colonic diverticulosis. 6. Additional findings as described above. Electronically signed by: River Briggs M.D. 03/03/2018 2:29 PM Dictated Date/Time: 03/03/2018 2:16 PM
== END | disposition home or self-care (01) ==
LOC: C.CTS 13:05
PROVIDERS: ATTEND Surgery
DX: K43.9 Ventral hernia without obstruction or gangrene (principal); K57.30 Diverticulosis of large intestine without perforation or abscess without bleeding; K86.9 Disease of pancreas, unspecified

== ENCOUNTER → 2018-06-13 | Outpatient (CLI) | payer OTHER ==
[~2018-06-13] MED LIST changes: +ALPR-411 PO; +CLBPO15 TOP; +LEVO-17 PO; +NYSP TOP; -OPTIRAY 320 IV PRN
[2018-06-13 12:58] LABS: HEMOGLOBIN A1C 7.1 % (4.5-5.6)
[2018-06-13 13:22] LABS: BLOOD UREA NITROGEN 29 mg/dl (7-18); CALCIUM 9.1 mg/dl (8.5-10.1); CARBON DIOXIDE 22 mmol/L (21-32); CREATININE 1.29 mg/dl (0.60-1.20); GLUCOSE 190 mg/dl (70-99); POTASSIUM 4.2 mmol/L (3.5-5.1); SODIUM 135 mmol/L (136-145)
== END | disposition home or self-care (01) ==
LOC: C.LABPBG 10:16
PROVIDERS: ATTEND Internal Medicine Geriatric Medicine
DX: I10 Essential (primary) hypertension (principal)

== ENCOUNTER → 2018-06-20 | Outpatient (CLI) | payer OTHER | END | disposition home or self-care (01) | LOC: C.LABSPEC 13:18 | PROVIDERS: ATTEND Internal Medicine Geriatric Medicine | DX: R39.9 Unspecified symptoms and signs involving the genitourinary system (principal) ==

== ENCOUNTER → 2018-07-01 | Outpatient (CLI) | payer OTHER ==
[~2018-07-01] MED LIST changes: +CIPR-255 PO; +HYDR-5688 PO
[2018-07-01 14:22] LABS: BLOOD UREA NITROGEN 27 mg/dl (7-18); CALCIUM 9.5 mg/dl (8.5-10.1); CARBON DIOXIDE 22 mmol/L (21-32); CREATININE 1.17 mg/dl (0.60-1.20); GLUCOSE 102 mg/dl (70-99); POTASSIUM 4.2 mmol/L (3.5-5.1); SODIUM 137 mmol/L (136-145)
== END | disposition home or self-care (01) ==
LOC: C.LABPBG 07:29
PROVIDERS: ATTEND Physician Assistant
DX: E87.1 Hypo-osmolality and hyponatremia (principal)

== ENCOUNTER 2021-03-02 15:23 | Observation (INO) ==
[2021-03-02 17:56] LABS: Basophils # (auto) 0.02 K/uL (0-0.2); Basophils % (auto) 0.2 %; Eosinophils # (auto) 0.05 K/uL (0-0.5); Eosinophils % (auto) 0.5 %; Hematocrit (blood only) 37.9 % (37-47); Hemoglobin 12.7 g/dL (12.0-16.0); Immature Granulocytes # (auto) 0.02 K/uL (0.00-0.02); Immature Granulocytes % (auto) 0.2 %; Lymphocytes # (auto) 1.76 K/uL (1.2-3.4); Mean Corpuscular Hemoglobin 30.5 pg (25-34); Mean Corpuscular Hgb Conc 33.5 g/dL (32-36); Mean Corpuscular Volume 91.1 fL (80-100); Mean Platelet Volume 9.7 fL (7.4-10.4); Monocytes # (auto) 0.81 K/uL (0.11-0.59); Monocytes % (auto) 7.8 %; Neutrophils # (auto) 7.69 K/uL (1.4-6.5); Neutrophils % (auto) 74.3 %; Platelet Count 231 K/uL (130-400); RDW Standard Deviation 46.1 fL (36.4-46.3); Red Blood Count 4.16 M/uL (4.2-5.4); White Blood Count 10.35 K/uL (4.8-10.8)
[2021-03-02 18:17] LABS: Albumin Globulin Ratio 0.8 (0.9-2); Albumin Level 3.4 gm/dl (3.4-5.0); BUN Creatinine Ratio 20.3 (10-20); Bilirubin,Total 0.8 mg/dl (0.2-1); Calcium 9.5 mg/dl (8.5-10.1); Creatinine Clr Calc Pharmacy 49.8 ml/min; Est GFR (African American) 68.1; Est GFR (Non-African American) 58.7; Globulin 4.2 gm/dl (2.5-4.0); Potassium 4.1 mmol/L (3.5-5.1); Total Protein 7.6 gm/dl (6.4-8.2)
[2021-03-02 18:37] LABS: Appearance Urine Clear (Clear); Bacteria Urine Automated Negative (Negative); Bilirubin Urine Negative (Negative); Blood Urine Negative (Negative); Cast Urine Automated 0 /lpf (0-5); Color Urine Yellow; Epithelial Cell Urine Auto >30 /lpf (0-5); Glucose Urine UA Negative (Negative); Ketones Urine Negative (Negative); Leukocyte Esterase Urine 2+ (Negative); Nitrite Urine Negative (Negative); Protein Urine Negative (Negative); RBC Urine Automated 0-4 /hpf (0-4); Specific Gravity Urine 1.013 (1.000-1.030); Urobilinogen Urine Negative (Negative)
[2021-03-02] MEDS ORDERED: metroNIDAZOLE 500 MG/100 ML BAG IV STA (21:33)
[2021-03-02] MEDS ORDERED: CIPROFLOXACIN / D5W 400 MG/200 ML BAG IV STA (21:33)
[2021-03-02] MEDS ORDERED: ACETAMINOPHEN 1,000 MG/100 ML VIAL IV PRN (22:21)
[2021-03-02] MEDS ORDERED: LORazepam 0.5 MG/1 ML VIAL IV PRN (22:21)
--- NOTE | 2021-03-02 22:32 | History & Physical Report ---
Date of Service March 02, 2021 Assessment & Plan (1) Appendicitis: Due to the patient's clinical presentation as well as imaging finding will admit her to the hospital and proceed as follows: Provide analgesics Provide antiemetics Continue antibiotics. She has received Cipro and Flagyl in the emergency Patient takes Eliquis for history of right lower extremity DVT. She notes that she took her most recent dose at 9:00 AM this morning. In light of the fact that she took her Eliquis this morning and the fact that she has had previous abdominal surgeries would prefer to hold on her surgery for at least 24 hours to decrease the risk of bleeding. We will therefore hold her Eliquis till after surgery We will plan for an appendectomy on 03/03/2021 Keep the patient n.p.o. We will check a chest x-ray for preoperative reasons We will follow up on the results of Covid testing has been performed Patient says that she suffers from anxiety and was requested something to alleviate this. We will therefore order as needed IV Ativan Patient is diabetic and takes an insulin regimen consisting of NovoLog insulin as well as Lantus insulin. We will request a hospitalist consult to help with management this and I discussed case with Dr. Luque who will see the patient to address this medical issue. The patient further related further related that she has a pessary in place. Her records were reviewed and she does have a 5 mm pessary that was placed for a grade 3 cystocele. I discussed with Dr. Pina of [facility] [employer] and she notes the pessary can merely be left in place at the time of surgery. If the pessary is felt to be problematic at time of surgery it can be removed and cleaned with Betadine and then reinserted following her procedure. Further recommendations will be made based on her operative findings as well as the rest of her clinical course as it unfolds. History of Present Illness Chief Complaint: Abdominal pain Primary Care Provider: Rosemary Zuluaga, This is an 81. Female who has an underlying history of IBS. Patient notes that she has had multiple visits to the emergency department this year secondary to vague abdominal complaints. She notes no significant pathology has been identified prior to today's visit. She notes that she began to have some vague abdominal pain earlier today around 9:00 this morning. She says that she took a dicyclomine pill as she thought it was related to her IBS. She did not achieve any relief from this. She denies any fevers, shakes, chills. She also denies any nausea or vomiting. She does note the pain is generalized but is predominately located in the right lower quadrant. She said the pain does not radiate anywhere. She does not note any modifying factors. In the emergency department the patient had labs and imaging performed which I independently reviewed. CBC revealed her white blood cell count, hemoglobin, hematocrit, and platelet count were all within normal range. A chemistry profile revealed her sodium, BUN, creatinine, and potassium were all within normal range. Urinalysis showed positive leukocyte esterase as well as 10-30 white blood cells per high-power field. An EKG showed normal sinus rhythm without any acute ischemic changes. Covid test has been ordered and is pending. In addition the patient had a CT scan of her abdomen. The study showed that she had a dilated appendix up to 9 mm which was increased when compared to CT scan from November of this year. There is some fat stranding around the appendix which was suspicious for acute appendicitis. At the time my visit patient was noted to be hemodynamically stable and afebrile. She was in no distress Allergies Allergy/AdvReac Type Severity Reaction Status Date / Time Iodinated Contrast Media Allergy Severe Rash Verified 03/02/21 17:57 aspirin Allergy Intermediate RASH, GI Verified 03/02/21 17:57 UPSET nitrofurantoin Allergy Intermediate HIVES Verified 03/02/21 17:57 Penicillins Allergy Intermediate rash Verified 03/02/21 17:57 Sulfa (Sulfonamide Allergy Intermediate rash Verified 03/02/21 17:57 Antibiotics) aspartame [From Prevalite] Allergy Mild Diarrhea Verified 03/02/21 17:57 cholestyramine Allergy Mild LIP Verified 03/02/21 17:57 SWELLING WITH PREVALITE (GEN QUESTRAN) amlodipine Allergy Unknown Unknown Verified 03/02/21 17:57 dexlansoprazole Allergy Unknown Unknown Verified 03/02/21 17:57 [From Dexilant] atropine AdvReac Mild PASSED OUT Verified 03/02/21 17:57 cephalexin AdvReac Mild DIARRHEA Verified 03/02/21 17:57 cimetidine AdvReac Mild INSOMNIA Verified 03/02/21 17:57 diphenoxylate AdvReac Mild PASSED OUT Verified 03/02/21 17:57 metformin AdvReac Mild DIARRHEA Verified 03/02/21 17:57 Home Medications Medication Instructions Recorded Confirmed Type Multivitamin Women 50 Plus 1 tab PO QAM 11/12/18 03/02/21 History Lactobacillus 1 cap PO QDL #30 cap 05/08/19 03/02/21 History acidophilus-Bifidobac.animalis 31 billion cell capsule acyclovir 5 % topical ointment 1 appln TOP 6XD PRN 05/08/19 03/02/21 History cholecalciferol (vitamin D3) 25 1,000 units PO QAM 05/08/19 03/02/21 History mcg (1,000 unit) capsule acetaminophen 650 mg 650 mg PO QID PRN tab 10/11/19 03/02/21 History tablet,extended release esomeprazole magnesium [Nexium] 20 mg PO BID 03/05/20 03/02/21 History betamethasone valerate 0.1 % 1 appln TOP BID PRN #45 gm 05/14/20 03/02/21 Rx topical cream pen needle, diabetic 32 gauge x #300 ea 07/31/20 01/30/21 Rx 5/32" apixaban 5 mg tablet 5 mg PO BID #180 tab 09/10/20 03/02/21 Rx clobetasol 0.05 % topical ointment 1 applic TOP 3XWK #45 g 10/28/20 03/02/21 Rx insulin glargine [Basaglar KwikPen 7 unit SUBCUT HS 11/23/20 03/02/21 History U-100 Insulin] lorazepam 0.5 mg tablet 0.25 mg PO DAILY PRN #14 tab 11/27/20 03/02/21 Rx Wheeled Walker #1 ea 12/17/20 01/30/21 Rx lisinopril 10 mg tablet 10 mg PO BID #180 tab 12/24/20 03/02/21 Rx meclizine 25 mg PO TID #14 tab 01/07/21 03/02/21 Rx dicyclomine 10 mg capsule 10 mg PO TID PRN #90 cap 02/04/21 03/02/21 Rx nystatin 100,000 unit/gram topical 1 applic TOP BID #60 gm 02/17/21 03/02/21 Rx powder insulin aspart U-100 [Novolog 25 unit SUBCUT DIRECTED 03/02/21 03/02/21 History Flexpen U-100 Insulin] Past Med/Surg History Medical History Anemia Anxiety Arteriosclerotic coronary artery disease Nonobstructive on 2010 cath ([facility]) Chronic anticoagulation Chronic osteoarthritis CKD (chronic kidney disease), stage III Delayed gastric emptying Diabetic neuropathy Dyslipidemia GERD (gastroesophageal reflux disease) Headache, migraine Hemorrhoids Hiatal hernia History of blood clots X 2016 Hypertension IBS (irritable bowel syndrome) Incisional hernia IPMN (intraductal papillary mucinous neoplasm) Lichen sclerosus et atrophicus Osteopenia Periodic limb movement disorder Sleep apnea Type 2 diabetes mellitus Venous insufficiency Vitamin D deficiency Surgical History H/O foot surgery BILATERAL Bunion correction. H/O shoulder surgery LEFT H/O umbilical hernia repair H/O ventral hernia repair recurrent incisional hernia repair History of bilateral oophorectomy History of cholecystectomy History of tooth extraction WISDOM TEETH Hx of cataract surgery Hx of vaginal hysterectomy Family History Daughter Congenital clotting factor deficiency Mother Diabetes Hypertension Myocardial infarction Stroke syndrome Stroke Brother Cancer Hypertension Pancreatic cancer Prostate cancer Family/Other Cardiac disorder Father Hypertension Other Heart disease No family history of bleeding disorder Denies family history of Breast cancer Colorectal cancer Social History Smoking Status: Never smoker Tobacco Type: Cigarettes Second Hand Exposure: No; Hx Alcohol Use: No Hx Substance Use: No Preferred Language: Icelandic Visual Impairment: No Limitations Hearing Ability: Normal 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 On waiting list @[email or web address] current occupational status: retired current occupation: worked at the [employer] Feels Safe at Home: Yes Childhood Exposure to Second-Hand Smoke: No Diet Comment: regular caffeine: No during the past year weight has: decreased > 10 lbs Dental Care, Regularly: Yes Physical Activity Frequency: Other Physical Activity Frequency Comment: Limited due to physical condition. Seatbelt Use: always Sunscreen Use: No Assistive Devices: Cane, Glasses and Walker Review of Systems Constitutional: no fever and no chills Eyes: no diplopia Ear, Nose, Mouth, Throat: no ear pain Respiratory: no cough and no dyspnea Cardiovascular: no chest pain Gastrointestinal: + abdominal pain; no nausea and no vomiting Genitourinary: no dysuria Musculoskeletal: no back pain Integumentary: no rash Neurologic: + unsteadiness; no generalized weakness Physical Exam Constitutional: well developed and well nourished; no acute distress Eyes: no corneal abnormality ENMT: Ears: no hearing impairment Neck: trachea midline Respiratory: normal respiratory effort, lungs clear to auscultation Cardiovascular: Rate/Rhythm: regular rate and regular rhythm Gastrointestinal (Abdomen): Abdomen is soft and nondistended. The patient did have generalized pain with palpation throughout her abdomen. Her pain did appear to be most pronounced particularly with deep palpation in the right lower quadrant. There is no rebound tenderness or guarding. Rovsing sign was negative. Musculoskeletal: No calf tenderness. Patient was noted to have approximate 1+ lower extremity mid bilaterally Skin: no rashes, warm and dry Neurologic: moves all extremities Motor/Sensory: + tremor Psychiatric: Orientation: alert and oriented x 3 Affect: + anxious affect Results & Data Results & Data ([facility]) Vital Signs (Past 12 Hours) Vital Signs Temp Pulse Pulse Resp BP BP Pulse Ox 03/02/21 21:52 81 18 159/78 H 97 03/02/21 20:22 77 18 178/71 H 98 03/02/21 19:16 79 18 174/79 H 98 03/02/21 18:00 67 19 165/75 H 96 03/02/21 17:50 65 16 167/79 H 97 03/02/21 17:40 71 18 03/02/21 17:30 73 17 178/98 H 95 03/02/21 17:20 73 21 97 03/02/21 17:10 74 14 98 03/02/21 17:01 76 22 185/89 H 98 03/02/21 17:00 72 18 185/89 H 97 03/02/21 15:45 36.8 C 73 18 211/81 H 97 Code Status & VTE Plan VTE Prophylaxis Plan VTE Prophylaxis will be ordered: Yes Supervising Physician Co-Signing Physician Notes Discussed with HUNTER Laguerre, labs and imaging reviewed, agree with above. 85 y/o female with acute appendicitis, on Elliquis. Prior ventral hernia repair, and other surgery. Will wait 24 hours from last Elliquis dose and plan for laparoscopic appendectomy tomorrow. PG Care Time/CCT Total # of Minutes Spent Total Time Spent with Patient: Total time spent is greater than 50% in coordination of care (as documented) at patient's floor/unit and/or counseling patient: Coding Level of Care Code 13974 OBS Care - Level 3 Diagnoses Appendicitis K37
--- NOTE | 2021-03-02 22:39 | Emergency Department Note ---
History of Present Illness General Chief Complaint: Abdominal Pain Stated Complaint: AB PAIN Time Seen by Provider: 03/02/21 16:36 History of Present Illness Provider Complaint: abdominal pain Onset (ago): 1 day(s) Pain Consistency: constant Location: RLQ Radiation: none Severity: moderate Maximum Pain Intensity: 7 Current Pain Intensity: 7 Quality: + cramping Relieved By: + nothing Exacerbated By: + nothing Context: + history of similar episodes (IBS); no foreign travel, no possible food poisoning, no recent antibiotic use and no recent surgery/procedure Associated Symptoms: no nausea, no vomiting, no diarrhea, no fever, no chills, no constipation, no dysuria, no hematemesis, no hematochezia, no melena, no hematuria, no anorexia, no syncope, no headache, no neck pain, no back pain, no chest pain, no weakness, no breathing difficulty and no numbness Home Medications Medication Instructions Recorded Confirmed Type Multivitamin Women 50 Plus 1 tab PO QAM 11/12/18 03/02/21 History Lactobacillus 1 cap PO QDL #30 cap 05/08/19 03/02/21 History acidophilus-Bifidobac.animalis 31 billion cell capsule acyclovir 5 % topical ointment 1 appln TOP 6XD PRN 05/08/19 03/02/21 History cholecalciferol (vitamin D3) 25 1,000 units PO QAM 05/08/19 03/02/21 History mcg (1,000 unit) capsule acetaminophen 650 mg 650 mg PO QID PRN tab 10/11/19 03/02/21 History tablet,extended release esomeprazole magnesium [Nexium] 20 mg PO BID 03/05/20 03/02/21 History betamethasone valerate 0.1 % 1 appln TOP BID PRN #45 gm 05/14/20 03/02/21 Rx topical cream pen needle, diabetic 32 gauge x #300 ea 07/31/20 01/30/21 Rx 5/32" apixaban 5 mg tablet 5 mg PO BID #180 tab 09/10/20 03/02/21 Rx clobetasol 0.05 % topical ointment 1 applic TOP 3XWK #45 g 10/28/20 03/02/21 Rx insulin glargine [Basaglelza KwikPen 7 unit SUBCUT HS 11/23/20 03/02/21 History U-100 Insulin] lorazepam 0.5 mg tablet 0.25 mg PO DAILY PRN #14 tab 11/27/20 03/02/21 Rx Wheeled Walker #1 ea 12/17/20 01/30/21 Rx lisinopril 10 mg tablet 10 mg PO BID #180 tab 12/24/20 03/02/21 Rx meclizine 25 mg PO TID #14 tab 01/07/21 03/02/21 Rx dicyclomine 10 mg capsule 10 mg PO TID PRN #90 cap 02/04/21 03/02/21 Rx nystatin 100,000 unit/gram topical 1 applic TOP BID #60 gm 02/17/21 03/02/21 Rx powder insulin aspart U-100 [Novolog 25 unit SUBCUT DIRECTED 03/02/21 03/02/21 History Flexpen U-100 Insulin] Allergies Allergy/AdvReac Type Severity Reaction Status Date / Time Iodinated Contrast Media Allergy Severe Rash Verified 03/02/21 17:57 aspirin Allergy Intermediate RASH, GI Verified 03/02/21 17:57 UPSET nitrofurantoin Allergy Intermediate HIVES Verified 03/02/21 17:57 Penicillins Allergy Intermediate rash Verified 03/02/21 17:57 Sulfa (Sulfonamide Allergy Intermediate rash Verified 03/02/21 17:57 Antibiotics) aspartame [From Prevalite] Allergy Mild Diarrhea Verified 03/02/21 17:57 cholestyramine Allergy Mild LIP Verified 03/02/21 17:57 SWELLING WITH PREVALITE (GEN QUESTRAN) amlodipine Allergy Unknown Unknown Verified 03/02/21 17:57 dexlansoprazole Allergy Unknown Unknown Verified 03/02/21 17:57 [From Dexilant] atropine AdvReac Mild PASSED OUT Verified 03/02/21 17:57 cephalexin AdvReac Mild DIARRHEA Verified 03/02/21 17:57 cimetidine AdvReac Mild INSOMNIA Verified 03/02/21 17:57 diphenoxylate AdvReac Mild PASSED OUT Verified 03/02/21 17:57 metformin AdvReac Mild DIARRHEA Verified 03/02/21 17:57 Past Med/Surg History Medical History Anemia Anxiety Arteriosclerotic coronary artery disease Nonobstructive on 2010 cath ([facility]) Chronic anticoagulation Chronic osteoarthritis CKD (chronic kidney disease), stage III Delayed gastric emptying Diabetic neuropathy Dyslipidemia GERD (gastroesophageal reflux disease) Headache, migraine Hemorrhoids Hiatal hernia History of blood clots X 2016 Hypertension IBS (irritable bowel syndrome) Incisional hernia IPMN (intraductal papillary mucinous neoplasm) Lichen sclerosus et atrophicus Osteopenia Periodic limb movement disorder Sleep apnea Type 2 diabetes mellitus Venous insufficiency Vitamin D deficiency Surgical History H/O foot surgery BILATERAL Bunion correction. H/O shoulder surgery LEFT H/O umbilical hernia repair H/O ventral hernia repair recurrent incisional hernia repair History of bilateral oophorectomy History of cholecystectomy History of tooth extraction WISDOM TEETH Hx of cataract surgery Hx of vaginal hysterectomy Family History Daughter Congenital clotting factor deficiency Mother Diabetes Hypertension Myocardial infarction Stroke syndrome Stroke Brother Cancer Hypertension Pancreatic cancer Prostate cancer Family/Other Cardiac disorder Father Hypertension Other Heart disease No family history of bleeding disorder Denies family history of Breast cancer Colorectal cancer Social History Smoking Status: Never smoker Tobacco Type: Cigarettes Second Hand Exposure: No; Hx Alcohol Use: No Hx Substance Use: No Preferred Language: Tunisian Visual Impairment: No Limitations Hearing Ability: Normal Stock Letterer Required: No Beliefs That Will Affect Care: None marital status: Current Living Situation: Spouse Current Living Situation Comment: lives in 1 [address] home w/ . On waiting list [facility] current occupational status: retired current occupation: worked at the [employer] Feels Safe at Home: Yes Childhood Exposure to Second-Hand Smoke: No Diet Comment: regular caffeine: No during the past year weight has: decreased > 10 lbs Dental Care, Regularly: Yes Physical Activity Frequency: Other Physical Activity Frequency Comment: Limited due to physical condition. Seatbelt Use: always Sunscreen Use: No Assistive Devices: Cane, Glasses and Walker Review of Systems A total of 10 systems reviewed and were otherwise negative Physical Exam Vital Signs: Vital Signs - 24 hr 03/02/21 15:45 03/02/21 17:00 03/02/21 17:01 Temperature 36.8 C Temperature Source Temporal Artery Sc an Pulse Rate 73 72 Pulse Rate [Apical ] 76 Pulse Rate [Right Finger] Pulse Rate from Sp O2 Sensor 73 Pulse Rhythm [Apic al] Regular Pulse Rhythm [Righ t Finger] Pulse Strength [Ap ical] Normal Pulse Strength [Ri ght Finger] Respiratory Rate 18 18 22 Respiratory Effort / Characteristics Non-Labored Sponta neous Non-Labored Sponta neous Respiratory Depth Normal Normal Respiratory Patter n Regular Blood Pressure 211/81 H 185/89 H Blood Pressure [Le ft Arm] 185/89 H Blood Pressure Nataly n 124 121 Blood Pressure Nataly n [Left Arm] 121 Blood Pressure Pos ition Sitting Blood Pressure Pos ition [Left Arm] Pulse Oximetry 97 97 98 Oxygen Delivery Me thod Room Air Room Air Sepsis Recent Feve r Within 48 Hours No Sepsis New/Unexpla ined Change in Men estephania Status N/A Sepsis Action Take n by Nursing No Action Required 03/02/21 17:10 03/02/21 17:20 03/02/21 17:30 Temperature Temperature Source Pulse Rate 74 73 73 Pulse Rate [Apical ] Pulse Rate [Right Finger] Pulse Rate from Sp O2 Sensor 74 74 72 Pulse Rhythm [Apic al] Pulse Rhythm [Righ t Finger] Pulse Strength [Ap ical] Pulse Strength [Ri ght Finger] Respiratory Rate 14 21 17 Respiratory Effort / Characteristics Respiratory Depth Respiratory Patter n Blood Pressure 178/98 H Blood Pressure [Le ft Arm] Blood Pressure Nataly n 124 Blood Pressure Nataly n [Left Arm] Blood Pressure Pos ition Blood Pressure Pos ition [Left Arm] Pulse Oximetry 98 97 95 Oxygen Delivery Me thod Sepsis Recent Feve r Within 48 Hours Sepsis New/Unexpla ined Change in Men estephania Status Sepsis Action Take n by Nursing 03/02/21 17:40 03/02/21 17:50 03/02/21 18:00 Temperature Temperature Source Pulse Rate 71 65 67 Pulse Rate [Apical ] Pulse Rate [Right Finger] Pulse Rate from Sp O2 Sensor 64 66 Pulse Rhythm [Apic al] Pulse Rhythm [Righ t Finger] Pulse Strength [Ap ical] Pulse Strength [Ri ght Finger] Respiratory Rate 18 16 19 Respiratory Effort / Characteristics Respiratory Depth Respiratory Patter n Blood Pressure 167/79 H 165/75 H Blood Pressure [Le ft Arm] Blood Pressure Nataly n 108 105 Blood Pressure Nataly n [Left Arm] Blood Pressure Pos ition Blood Pressure Pos ition [Left Arm] Pulse Oximetry 97 96 Oxygen Delivery Me thod Sepsis Recent Feve r Within 48 Hours Sepsis New/Unexpla ined Change in Men estephania Status Sepsis Action Take n by Nursing 03/02/21 19:16 03/02/21 20:22 03/02/21 21:52 Temperature Temperature Source Pulse Rate Pulse Rate [Apical ] 79 77 81 Pulse Rate [Right Finger] Pulse Rate from Sp O2 Sensor Pulse Rhythm [Apic al] Regular Regular Regular Pulse Rhythm [Righ t Finger] Pulse Strength [Ap ical] Normal Normal Normal Pulse Strength [Ri ght Finger] Respiratory Rate 18 18 18 Respiratory Effort / Characteristics Non-Labored Sponta neous Non-Labored Sponta neous Non-Labored Sponta neous Respiratory Depth Normal Normal Normal Respiratory Patter n Regular Blood Pressure Blood Pressure [Le ft Arm] 174/79 H 178/71 H 159/78 H Blood Pressure Nataly n Blood Pressure Nataly n [Left Arm] 110 106 105 Blood Pressure Pos ition Blood Pressure Pos ition [Left Arm] Lying Lying Lying Pulse Oximetry 98 98 97 Oxygen Delivery Me thod Room Air Room Air Room Air Sepsis Recent Feve r Within 48 Hours Sepsis New/Unexpla ined Change in Men estephania Status Sepsis Action Take n by Nursing 03/02/21 22:30 Temperature Temperature Source Pulse Rate Pulse Rate [Apical ] Pulse Rate [Right Finger] 77 Pulse Rate from Sp O2 Sensor Pulse Rhythm [Apic al] Pulse Rhythm [Righ t Finger] Regular Pulse Strength [Ap ical] Pulse Strength [Ri ght Finger] Normal Respiratory Rate 18 Respiratory Effort / Characteristics Non-Labored Sponta neous Respiratory Depth Normal Respiratory Patter n Blood Pressure Blood Pressure [Le ft Arm] 171/88 H Blood Pressure Nataly n Blood Pressure Nataly n [Left Arm] 115 Blood Pressure Pos ition Blood Pressure Pos ition [Left Arm] Lying Pulse Oximetry 96 Oxygen Delivery Me thod Room Air Sepsis Recent Feve r Within 48 Hours Sepsis New/Unexpla ined Change in Men estephania Status Sepsis Action Take n by Nursing Physical Exam: Physical Exam GENERAL: She is oriented to person, place, and time. She appears well-developed and well-nourished. She does not appear distressed. HENT: Exam performed. -Head: Normocephalic and atraumatic. -Right Ear: External ear normal. No mastoid tenderness. -Left Ear: External ear normal. No mastoid tenderness. -Mouth/Throat: The oropharynx is clear and moist. No trismus in the jaw. No dental abscesses or uvula swelling. No oropharyngeal exudate or tonsillar abscesses. EYES: Conjunctivae and EOM are normal. Pupils are equal, round, and reactive to light. Right eye exhibits no discharge. Left eye exhibits no discharge. No scler al icterus. NECK: Normal range of motion. Neck supple. No JVD present. No spinous process tenderness present. No carotid bruit present. No rigidity. No tracheal deviation and normal range of motion present. No Brudzinski's sign and no Kernig's sign noted. CV: Normal rate, regular rhythm, normal heart sounds and intact distal pulses. There is no peripheral edema. Palpable radial pulses bue. PULM/CHEST: Effort normal and breath sounds normal. No respiratory distress. No stridor. She has no wheezes. She has no rales. -Chest Wall: She exhibits no tenderness. ABD: The abdomen is soft. Bowel sounds are normal. She has no distension. No mass is present. There is tenderness to palpation of the right lower quadrant. There is no rebound, no guarding, no Bee's sign and no tenderness at McBurn ey's point. Rovsig negative MUSC/SKEL: Normal range of motion. There is no peripheral edema, tenderness or deformity. LYMPH: No cervical adenopathy. NEURO: She is alert and oriented to person, place, and time. She has normal strength. No cranial nerve deficit or sensory deficit. Coordination and gait normal. GCS eye subscore is 4. GCS verbal subscore is 5. GCS motor subscore is 6. Cerebellar tests wnl. SKIN: Skin is warm and dry. She is not diaphoretic. PSYCH: She has a normal mood and affect. Behavior is normal. Judgment and thought content normal. Course Course 1636: The patient was evaluated in room C3. A complete history and physical exam was performed Cardiac monitoring: An order was placed for continuous cardiac monitoring. The monitor shows a rate of 80 with sinus rhythm 2140: Vital signs stable. Labs within normal limits. CT shows appendicitis. Patient be treated with Cipro and Flagyl. Spoke with Dr. Davila who states he will evaluate the patient. Administered Medications Ciprofloxacin (Cipro / D5w) 400 mg in 200 mls @ 100 mls/hr IV NOW STA; Protocol Stop: 03/02/21 23:32 Last Admin: 03/02/21 21:46 Dose: 100 mls/hr Documented by: [id number] Discontinued Medications Metronidazole (Flagyl) 500 mg in 100 mls @ 100 mls/hr IV NOW STA Stop: 03/02/21 22:32 Last Admin: 03/02/21 22:21 Dose: 100 mls/hr Documented by: [id number] Medical Decision Making Laboratory Data Result diagrams: 03/02/21 17:43 03/02/21 17:43 Lab Results 03/02/21 03/02/21 03/02/21 Range/Units 17:11 17:11 17:43 WBC Cancelled 10.35 RBC Cancelled 4.16 L Hgb Cancelled 12.7 Hct Cancelled 37.9 MCV Cancelled 91.1 MCH Cancelled 30.5 MCHC Cancelled 33.5 RDW Std Deviation Cancelled 46.1 RDW Coeff of Harpreet Cancelled 14.0 Plt Count Cancelled 231 MPV Cancelled 9.7 Immature Gran % (Auto) Cancelled 0.2 Neut % (Auto) Cancelled 74.3 Lymph % (Auto) Cancelled 17.0 [place] % (Auto) Cancelled 7.8 Eos % (Auto) Cancelled 0.5 Baso % (Auto) Cancelled 0.2 Neut # (Auto) Cancelled 7.69 H Lymph # (Auto) Cancelled 1.76 [place] # (Auto) Cancelled 0.81 H Eos # (Auto) Cancelled 0.05 Baso # (Auto) Cancelled 0.02 Immature Gran # (Auto) Cancelled 0.02 Absolute Nucleated RBC Cancelled Nucleated RBC % (auto) Cancelled Neutrophils % (Manual) Cancelled Band Neutrophils % Cancelled Lymphocytes % (Manual) Cancelled Prolymphocyte % Cancelled Reactive Lymphs % (Man) Cancelled Monocytes % (Manual) Cancelled Eosinophils % (Manual) Cancelled Basophils % (Manual) Cancelled Metamyelocytes % (Man) Cancelled Myelocytes % (Man) Cancelled Promyelocytes % (Man) Cancelled Blast Cells % (Manual) Cancelled Plasma Cell % (Manual) Cancelled Other Cells % Cancelled Nucleated RBC % Cancelled Neutrophils # (Manual) Cancelled Band Neutrophils # Cancelled Total Absolute Neuts Cancelled Lymphocytes # (Manual) Cancelled Prolymphocyte # Cancelled Reactive Lymphs # Cancelled Total Abs Lymphocytes Cancelled Monocytes # (Manual) Cancelled Eosinophils # (Manual) Cancelled Basophils # (Manual) Cancelled Metamyelocytes # (Man) Cancelled Myelocytes # (Manual) Cancelled Promyelocytes # (Man) Cancelled Blast Cells # (Man) Cancelled Plasma Cell # (Manual) Cancelled Other Cells # Cancelled Nucleated RBCs # (Man) Cancelled Hypersegmented Neuts Cancelled Hyposegmented Neuts Cancelled Hypogranular Neuts Cancelled Large Granular Lymphs Cancelled # Lrg Granular Lymphs Cancelled Hairy Cells Cancelled Smudge Cells Cancelled Toxic Granulation Cancelled Toxic Vacuolation Cancelled Dohle Bodies Cancelled Jeanine Rods Cancelled Platelet Estimate Cancelled Hypogranular Platelets Cancelled Clumped Platelets Cancelled Giant Platelets Cancelled Platelet Satelliting Cancelled RBC Morphology Cancelled Polychromasia Cancelled Hypochromasia Cancelled Poikilocytosis Cancelled Basophilic Stippling Cancelled Anisocytosis Cancelled Microcytosis Cancelled Macrocytosis Cancelled Spherocytes Cancelled Pappenheimer Bodies Cancelled Sickle Cells Cancelled Target Cells Cancelled Tear Drop Cells Cancelled Ovalocytes Cancelled Stomatocytes Cancelled Arreola-St. Anthony Bodies Cancelled Echinocytes Cancelled Acanthocytes (Spur) Cancelled Rouleaux Cancelled RBC Agglutinates Cancelled Schistocytes Cancelled RBC Morph Comment Cancelled Sezary Cell Cancelled Sodium Cancelled Potassium Cancelled Chloride Cancelled Carbon Dioxide Cancelled Anion Gap Cancelled BUN Cancelled Creatinine Cancelled Est Cr Clr Drug Dosing Cancelled Est GFR ( Amer) Cancelled Est GFR (Non-Af Amer) Cancelled BUN/Creatinine Ratio Cancelled Glucose Cancelled Calcium Cancelled Total Bilirubin Cancelled AST Cancelled ALT Cancelled Alkaline Phosphatase Cancelled Total Protein Cancelled Albumin Cancelled Globulin Cancelled Albumin/Globulin Ratio Cancelled Lipase Cancelled Urine Color Urine Appearance (Clear) Urine pH (4.5-7.5) Ur Specific [place] (1.000-1.030) Urine Protein (Negative) Urine Glucose (UA) (Negative) Urine Ketones (Negative) Urine Blood (Negative) Urine Nitrite (Negative) Urine Bilirubin (Negative) Urine Urobilinogen (Negative) Ur Leukocyte Esterase (Negative) Urine WBC (Auto) (0-5) /hpf Urine RBC (Auto) (0-4) /hpf U Hyaline Cast (Auto) (0-5) /lpf U Epithel Cells (Auto) (0-5) /lpf Urine Bacteria (Auto) (Negative) COVID-19 Eval Order 03/02/21 03/02/21 03/02/21 Range/Units 17:43 18:25 21:52 WBC RBC Hgb Hct MCV MCH MCHC RDW Std Deviation RDW Coeff of Harpreet Plt Count MPV Immature Gran % (Auto) Neut % (Auto) Lymph % (Auto) [place] % (Auto) Eos % (Auto) Baso % (Auto) Neut # (Auto) Lymph # (Auto) [place] # (Auto) Eos # (Auto) Baso # (Auto) Immature Gran # (Auto) Absolute Nucleated RBC Nucleated RBC % (auto) Neutrophils % (Manual) Band Neutrophils % Lymphocytes % (Manual) Prolymphocyte % Reactive Lymphs % (Man) Monocytes % (Manual) Eosinophils % (Manual) Basophils % (Manual) Metamyelocytes % (Man) Myelocytes % (Man) Promyelocytes % (Man) Blast Cells % (Manual) Plasma Cell % (Manual) Other Cells % Nucleated RBC % Neutrophils # (Manual) Band Neutrophils # Total Absolute Neuts Lymphocytes # (Manual) Prolymphocyte # Reactive Lymphs # Total Abs Lymphocytes Monocytes # (Manual) Eosinophils # (Manual) Basophils # (Manual) Metamyelocytes # (Man) Myelocytes # (Manual) Promyelocytes # (Man) Blast Cells # (Man) Plasma Cell # (Manual) Other Cells # Nucleated RBCs # (Man) Hypersegmented Neuts Hyposegmented Neuts Hypogranular Neuts Large Granular Lymphs # Lrg Granular Lymphs Hairy Cells Smudge Cells Toxic Granulation Toxic Vacuolation Dohle Bodies Jeanine Rods Platelet Estimate Hypogranular Platelets Clumped Platelets Giant Platelets Platelet Satelliting RBC Morphology Polychromasia Hypochromasia Poikilocytosis Basophilic Stippling Anisocytosis Microcytosis Macrocytosis Spherocytes Pappenheimer Bodies Sickle Cells Target Cells Tear Drop Cells Ovalocytes Stomatocytes Arreola-St. Anthony Bodies Echinocytes Acanthocytes (Spur) Rouleaux RBC Agglutinates Schistocytes RBC Morph Comment Sezary Cell Sodium 139 Potassium 4.1 Chloride 108 H Carbon Dioxide 24 Anion Gap 7.0 BUN 18 Creatinine 0.90 Est Cr Clr Drug Dosing 49.8 Est GFR ( Amer) 68.1 Est GFR (Non-Af Amer) 58.7 BUN/Creatinine Ratio 20.3 H Glucose 156 H Calcium 9.5 Total Bilirubin 0.8 AST 14 L ALT 24 Alkaline Phosphatase 99 Total Protein 7.6 Albumin 3.4 Globulin 4.2 H Albumin/Globulin Ratio 0.8 L Lipase 131 Urine Color Yellow Urine Appearance Clear (Clear) Urine pH 7.0 (4.5-7.5) Ur Specific [place] 1.013 (1.000-1.030) Urine Protein Negative (Negative) Urine Glucose (UA) Negative (Negative) Urine Ketones Negative (Negative) Urine Blood Negative (Negative) Urine Nitrite Negative (Negative) Urine Bilirubin Negative (Negative) Urine Urobilinogen Negative (Negative) Ur Leukocyte Esterase 2+ H (Negative) Urine WBC (Auto) 10-30 H (0-5) /hpf Urine RBC (Auto) 0-4 (0-4) /hpf U Hyaline Cast (Auto) 0 (0-5) /lpf U Epithel Cells (Auto) >30 H (0-5) /lpf Urine Bacteria (Auto) Negative (Negative) COVID-19 Eval Order CovFluRsv at [facility] Imaging Data Radiologist's Impression: Preliminary Findings Only See Final Report For Complete Findings CT ABDOMEN & PELVIS Without Contrast: Comparison: CT abdomen pelvis 11/23/2020 Mildly dilated appendix measuring up to 9 mm (measured 5 mm previously) with minimal surrounding fat stranding is suspicious for acute uncomplicated appendicitis. Suggestion of mild wall thickening of the cecum may be reactive. Status post cholecystectomy. Small hiatal hernia. Diverticulosis of the sigmoid colon without evidence of acute diverticulitis. A vaginal pessary device is in place. Multilevel degenerative changes of the spine. Atrophy of the pancreas. Bilateral parapelvic cysts. Bilateral fat-containing inguinal hernias Radiologist: Zabrina Dominguez M.D. Study ready at 20:51 and initial results transmitted at 21:28 Communications: Clear Time Type Notes 03/02/21 21:32 Call Doctor Regarding Appendicitis, called Dr. Lizeth VALENZUELA Narrative Vital signs stable. Labs within normal limits. CT shows appendicitis. Patient be treated with Cipro and Flagyl. Spoke with Dr. Davila who states he will evaluate the patient. Impression & Plan Acute appendicitis Discharge Plan Visit Data Chief Complaint: Abdominal Pain Stated Complaint: AB PAIN ED Provider: Bert Leavitt Discharge Problem: Acute appendicitis Patient Disposition: Admitted As Inpatient Forms Stand Alone Forms: [facility] HitchedPic Prescriptions Prescriptions: No Action betamethasone valerate 0.1 % cream 1 appln TOP BID PRN (Reason: rash) Qty: 45 RF: 0 (DME) pen needle, diabetic [BD Ultra-Fine Aby Pen Needle] 32 gauge x 5/32" needle See Rx Instructions .ROUTE .MEDSUPPLY Qty: 300 RF: 5 Eliquis 5 mg tablet 5 mg PO BID Qty: 180 RF: 1 clobetasol [Temovate] 0.05 % ointment 1 applic TOP 3XWK Qty: 45 RF: 3 lisinopril 10 mg tablet 10 mg PO BID Qty: 180 RF: 1 dicyclomine 10 mg capsule 10 mg PO TID PRN (Reason: abdominal discomfort) Qty: 90 RF: 1 nystatin [Nyamyc] 100,000 unit/gram powder 1 applic TOP BID Qty: 60 RF: 3 Prodigen 31 billion cell capsule 1 cap PO QDL Qty: 30 RF: 0 acetaminophen [Tylenol 8 Hour] 650 mg tablet extended release 650 mg PO QID PRN (Reason: Pain) RF: 0 (DME) Wheeled Walker Misc See Rx Instructions .ROUTE .MEDSUPPLY Qty: 1 RF: 0 lorazepam 0.5 mg tablet 0.25 mg PO DAILY PRN (Reason: anxiety) Qty: 14 RF: 0 cholecalciferol (vitamin D3) 1,000 unit capsule 1,000 units PO QAM RF: 0 acyclovir [Zovirax] 5 % ointment 1 appln TOP 6XD PRN (Reason: Cold Sores) RF: 0 esomeprazole magnesium [Nexium] 20 mg Capsule,Delayed Release(Dr/Ec) 20 mg PO BID RF: 0 Basaglar KwikPen U-100 Insulin 100 unit/mL (3 mL) insulin pen 7 unit subcut HS RF: 0 Multivitamin Women 50 Plus 8 mg iron-400 mcg-300 mcg Tablet 1 tab PO QAM RF: 0 meclizine 25 mg tablet 25 mg PO TID Qty: 14 RF: 0 insulin aspart U-100 [Novolog Flexpen U-100 Insulin] 100 unit/mL (3 mL) insulin pen 25 unit SUBCUT DIRECTED RF: 0 Referrals Referrals: Rosemary Zuluaga DO [Primary Care Provider] -
[2021-03-02 22:44] LABS: Influenza A virus by PCR Negative (Neg); Influenza B virus by PCR Negative (Neg); RSV by PCR Negative (Neg); SARS CoV2 RNA(COVID-19) InHosp NEGATIVE (Negative)
[2021-03-02] MEDS: CIPROFLOXACIN / D5W 400 MG/200 ML BAG IV SCH (23:22)
[2021-03-02] MEDS: metroNIDAZOLE 500 MG/100 ML BAG IV SCH (23:23)
[2021-03-02] MEDS ORDERED: GLUCOSE 40% GEL 15 GM TUBE PO PRN (23:42)
[2021-03-02] MEDS ORDERED: GLUCOSE 10 TABS/TUBE PO PRN (23:42)
[2021-03-02] MEDS ORDERED: GLUCAGON FOR INJ 1 MG VIAL SQ PRN (23:42)
[2021-03-02] MEDS ORDERED: DEXTROSE 50% 50 ML SYRINGE IV PRN (23:42)
[2021-03-02] MEDS ORDERED: CARBOHYDRATES FOR HYPOGLYCEMIA PO PRN (23:42)
[2021-03-02] MEDS: LACTATED RINGER'S 1,000 ML IV SCH (23:42)
[2021-03-02] MEDS: ONDANSETRON INJ 2 MG/ML 2 ML VIAL IV SCH (23:55)
[2021-03-03] MEDS: MoRPHine SULFATE 2 MG/ML CARP IV PRN (05:37)
[2021-03-03] MEDS: ONDANSETRON INJ 2 MG/ML 2 ML VIAL IV SCH ×4 (05:37→22:03)
--- NOTE | 2021-03-03 07:52 | CT Scan Report ---
ABDOMEN AND PELVIS CT WITH ORAL CONTRAST CT DOSE: 682.05 mGy.cm HISTORY: Lower quadrant abdominal pain. TECHNIQUE: Multiaxial CT images of the abdomen and pelvis were performed following the use of oral co ntrast. A dose lowering technique was utilized adhering to the principles of ALARA. COMPARISON STUDY: Abdomen and pelvis CT 11/23/2020. FINDINGS: Stable 5 mm groundglass nodule within the left lower lobe on image 64. There is mild subple ural reticulation. No pneumoperitoneum. No pneumatosis. No suspicious lytic or blastic osseous lesion s. Mild hepatic steatosis. Cholecystectomy. The unenhanced spleen and adrenal glands unremarkable. Mo derate bilateral cortical renal thinning, unchanged. There are small bilateral peripelvic renal cysts . No ureteral stones or hydronephrosis. No retroperitoneal lymphadenopathy. Normal caliber abdominal aorta. There is a stable 1.5 cm hypodense lesion within the pancreatic head. This favors a cystic les ion of the pancreas such as an intraductal papillary mucinous neoplasm. A pessary device is noted. Th e bladder is unremarkable. Colonic diverticulosis. No evidence for acute diverticulitis. No evidence for bowel obstruction. There is thickening at the cecal base with fluid-filled and prominent appendix measuring up to 8 mm in diameter. There is mild periappendiceal fat stranding. The appendix wall jo ears to be slightly thickened. This is increased in size compared the prior study when it measures 4 mm. Therefore, this is suspicious for acute cholecystitis. There is a small fat-containing right ingu inal hernia. IMPRESSION: 1. Mildly dilated and fluid-filled appendix with mild fat stranding. The appendix measures up to 8 mm in diameter, previously measuring 4 mm. Therefore, this likely represents acute appendicitis. 2. There is thickening at the cecal base which could be reactive. An underlying cecal mass is conside red less likely but not entirely excluded. 3. No hydronephrosis. 4. Colonic diverticulosis. No evidence for acute diverticulitis. 5. Cholecystectomy. ACT 112: Negative or not required by law. Electronically signed by: River Briggs M.D. 03/03/2021 7:51 AM
[2021-03-03] MEDS: INSULIN ASPART 100 UNITS/ML 3 ML PEN SC SCH ×4 (08:13→20:40)
--- NOTE | 2021-03-03 08:14 | XRay Report ---
XR chest 1V portable HISTORY: Abdominal pain. COMPARISON: 01/07/2021. FINDINGS: No pneumothorax. No pleural effusions. The heart remains mildly enlarged. Prior cholecystec denise. Rotated study. Degenerative changes within the shoulders. There is mild diffuse interstitial th ickening. This is likely chronic. No new focal lung consolidations to suggest pneumonia. No evidence for pulmonary edema. IMPRESSION: Cardiomegaly and mild chronic interstitial thickening. This is similar to the prior study. ACT 112: Negative or not required by law. Electronically signed by: River Briggs M.D. 03/03/2021 8:13 AM
--- NOTE | 2021-03-03 08:44 | Anesthesiology Consultation ---
Date of Service March 03, 2021 Assessment & Plan (1) Encounter for pre-operative examination: Chart Review Chart Review: Acceptable Risk for Surgery (necessary surgery) and Patient NOT seen in Pre Admission Testing Consults Requested none History Surgery Operation Date: 03/03/21 12:15 Proposed Procedures p Laparoscopic Appendectomy - Bharathi Davila DO, FACS Height/Weight Height: 5 ft 4 in Weight: 87.3 kg Allergies Allergy/AdvReac Type Severity Reaction Status Date / Time Iodinated Contrast Media Allergy Severe Rash Verified 03/02/21 17:57 aspirin Allergy Intermediate RASH, GI Verified 03/02/21 17:57 UPSET nitrofurantoin Allergy Intermediate HIVES Verified 03/02/21 17:57 Penicillins Allergy Intermediate rash Verified 03/02/21 17:57 Sulfa (Sulfonamide Allergy Intermediate rash Verified 03/02/21 17:57 Antibiotics) aspartame [From Prevalite] Allergy Mild Diarrhea Verified 03/02/21 17:57 cholestyramine Allergy Mild LIP Verified 03/02/21 17:57 SWELLING WITH PREVALITE (GEN QUESTRAN) amlodipine Allergy Unknown Unknown Verified 03/02/21 17:57 dexlansoprazole Allergy Unknown Unknown Verified 03/02/21 17:57 [From Dexilant] atropine AdvReac Mild PASSED OUT Verified 03/02/21 17:57 cephalexin AdvReac Mild DIARRHEA Verified 03/02/21 17:57 cimetidine AdvReac Mild INSOMNIA Verified 03/02/21 17:57 diphenoxylate AdvReac Mild PASSED OUT Verified 03/02/21 17:57 metformin AdvReac Mild DIARRHEA Verified 03/02/21 17:57 Medications Home Medications Medication Instructions Recorded Confirmed Last Taken Multivitamin Women 50 Plus 1 tab PO QAM 11/12/18 03/02/21 03/02/21 Lactobacillus 1 cap PO QDL #30 cap 05/08/19 03/02/21 03/02/21 acidophilus-Bifidobac.animalis 31 billion cell capsule acyclovir 5 % topical ointment 1 appln TOP 6XD PRN 05/08/19 03/02/21 07/20/19 cholecalciferol (vitamin D3) 25 1,000 units PO QAM 05/08/19 03/02/21 03/02/21 mcg (1,000 unit) capsule acetaminophen 650 mg 650 mg PO QID PRN tab 10/11/19 03/02/21 Unknown tablet,extended release esomeprazole magnesium [Nexium] 20 mg PO BID 03/05/20 03/02/21 03/02/21 betamethasone valerate 0.1 % 1 appln TOP BID PRN #45 gm 05/14/20 03/02/21 Unknown topical cream pen needle, diabetic 32 gauge x #300 ea 07/31/20 01/30/21 Unknown " apixaban 5 mg tablet 5 mg PO BID #180 tab 09/10/20 03/02/21 03/02/21 clobetasol 0.05 % topical ointment 1 applic TOP 3XWK #45 g 10/28/20 03/02/21 11/22/20 insulin glargine [Basaglar KwikPen 7 unit SUBCUT HS 11/23/20 03/02/21 03/01/21 U-100 Insulin] lorazepam 0.5 mg tablet 0.25 mg PO DAILY PRN #14 tab 11/27/20 03/02/21 Unknown Wheeled Walker #1 ea 12/17/20 01/30/21 Unknown lisinopril 10 mg tablet 10 mg PO BID #180 tab 12/24/20 03/02/21 03/02/21 meclizine 25 mg PO TID #14 tab 01/07/21 03/02/21 03/02/21 dicyclomine 10 mg capsule 10 mg PO TID PRN #90 cap 02/04/21 03/02/21 03/02/21 nystatin 100,000 unit/gram topical 1 applic TOP BID #60 gm 02/17/21 03/02/21 03/02/21 powder insulin aspart U-100 [Novolog 25 unit SUBCUT DIRECTED 03/02/21 03/02/21 03/02/21 Flexpen U-100 Insulin] 12 units Active Medications Generic Name Dose Route Start Last Admin Trade Name Freq PRN Reason Stop Dose Admin Ciprofloxacin 400 mg in 200 mls @ 100 mls/hr 03/02/21 22:30 03/02/21 23:22 Cipro / D5w IV 03/12/21 22:29 Not Given Q12H CORINA Protocol Metronidazole 500 mg in 100 mls @ 100 mls/hr 03/02/21 22:30 03/02/21 23:23 Flagyl IV 03/12/21 22:29 Not Given Q8H CORINA Lactated Ringer's 1,000 mls @ 75 mls/hr 03/02/21 22:30 03/02/21 23:42 Lr IV 04/01/21 22:29 75 mls/hr .[id number] CORINA Administration Lorazepam 0.5 mg in 1 mls @ 1 mls/min 03/02/21 22:21 03/03/21 05:37 Ativan IV 04/01/21 22:20 1 mls/min Q6H PRN Administration Anxiety Insulin Aspart 0 units 03/03/21 07:30 03/03/21 08:13 Insulin Aspart 100 Units/Ml 3 Ml Pen SC 04/02/21 07:29 Not Given ACHS CORINA Morphine Sulfate 2 mg 03/02/21 22:21 03/03/21 05:37 Morphine Sulfate 2 Mg/Ml Carp IV 03/16/21 22:20 2 mg Q3H PRN Administration Pain Ondansetron HCl 4 mg 03/02/21 22:30 03/03/21 05:37 Ondansetron Inj 2 Mg/Ml 2 Ml Vial IV 04/01/21 22:29 4 mg Q6H CORINA Administration Past Medical History Medical History Anemia Anxiety Arteriosclerotic coronary artery disease Nonobstructive on 2010 cath ([facility]) Chronic anticoagulation Chronic osteoarthritis CKD (chronic kidney disease), stage III Delayed gastric emptying Diabetic neuropathy Dyslipidemia GERD (gastroesophageal reflux disease) Headache, migraine Hemorrhoids Hiatal hernia History of blood clots X , 2016 Hypertension IBS (irritable bowel syndrome) Incisional hernia IPMN (intraductal papillary mucinous neoplasm) Lichen sclerosus et atrophicus Obesity Osteopenia Periodic limb movement disorder Sleep apnea Type 2 diabetes mellitus Venous insufficiency Vitamin D deficiency Past Family History Family History Daughter Congenital clotting factor deficiency Mother Diabetes Hypertension Myocardial infarction Stroke syndrome Stroke Brother Cancer Hypertension Pancreatic cancer Prostate cancer Family/Other Cardiac disorder Father Hypertension Other Heart disease No family history of bleeding disorder Denies family history of Breast cancer Colorectal cancer Past Surgical History Surgical History H/O foot surgery BILATERAL Bunion correction. H/O shoulder surgery LEFT H/O umbilical hernia repair H/O ventral hernia repair recurrent incisional hernia repair History of bilateral oophorectomy History of cholecystectomy History of tooth extraction WISDOM TEETH Hx of cataract surgery Hx of vaginal hysterectomy Social History Smoking Status: Never smoker Hx Alcohol Use: No Hx Substance Use: No substance use type: does not use Physical Exam Vital Signs Last Vital Signs Temp 36.6 C 03/03/21 00:33 Pulse 89 03/03/21 00:33 Resp 16 03/03/21 00:33 BP 189/80 H 03/03/21 00:33 Pulse Ox 96 03/03/21 00:33 Testing Laboratory Results 03/02/21 17:43 03/02/21 17:43 Urine Color Yellow 03/02/21 18:25 Urine Appearance Clear (Clear) 03/02/21 18:25 Urine pH 7.0 (4.5-7.5) 03/02/21 18:25 Ur Specific [place] 1.013 (1.000-1.030) 03/02/21 18:25 Urine Protein Negative (Negative) 03/02/21 18:25 Urine Glucose (UA) Negative (Negative) 03/02/21 18:25 Urine Ketones Negative (Negative) 03/02/21 18:25 Urine Nitrite Negative (Negative) 03/02/21 18:25 Ur Leukocyte Esterase 2+ (Negative) H 03/02/21 18:25 Urine WBC (Auto) 10-30 /hpf (0-5) H 03/02/21 18:25 Urine RBC (Auto) 0-4 /hpf (0-4) 03/02/21 18:25 U Hyaline Cast (Auto) 0 /lpf (0-5) 03/02/21 18:25 U Epithel Cells (Auto) >30 /lpf (0-5) H 03/02/21 18:25 Urine Bacteria (Auto) Negative (Negative) 03/02/21 18:25 03/03/21 03/03/21 06:03 00:20 POC Glucose 144 H 137 H Electrocardiogram Date: 03/02/21 Findings: + NSR @ (73) inferior infarct age undetermined - similar to prior EKGs Chest X-Ray Date: 03/02/21 XR chest 1V portable HISTORY: Abdominal pain. COMPARISON: 01/07/2021. FINDINGS: No pneumothorax. No pleural effusions. The heart remains mildly enlarged. Prior cholecystectomy. Rotated study. Degenerative changes within the shoulders. There is mild diffuse interstitial thickening. This is likely chronic. No new focal lung consolidations to suggest pneumonia. No evidence for pulmonary edema. IMPRESSION: Cardiomegaly and mild chronic interstitial thickening. This is similar to the prior study. ACT 112: Negative or not required by law. Electronically signed by: River Briggs M.D. 03/03/2021 8:13 AM Dictated: 03/03/21811Transcribed: 03/03/21 08
[2021-03-03] MEDS ORDERED: MECLIZINE HCL 25 MG TAB PO PRN (09:00)
[2021-03-03] MEDS: metroNIDAZOLE 500 MG/100 ML BAG IV SCH ×3 (11:28→22:03)
[2021-03-03] MEDS: CIPROFLOXACIN / D5W 400 MG/200 ML BAG IV SCH ×3 (11:28→22:03)
[2021-03-03] MEDS ORDERED: ROCURONIUM BROMIDE 10 MG/ML 5 ML VIAL IV ONE (12:14)
[2021-03-03] MEDS ORDERED: DEXAMETHASONE SOD INJ 4 MG/ML VIAL ONE (12:14)
[2021-03-03] MEDS ORDERED: PROPOFOL IV EMULSION 10 MG/ML 20 ML VIAL IV ONE (12:14)
[2021-03-03] MEDS ORDERED: fentaNYL citrate 100 MCG/2 ML VIAL ONE (12:14)
[2021-03-03] MEDS ORDERED: LIDOCAINE HCL 2% 2 ML VIAL/AMP(20MG/ML) INFIL ONE (12:14)
[2021-03-03] MEDS ORDERED: ONDANSETRON INJ 2 MG/ML 2 ML VIAL ONE (12:14)
--- NOTE | 2021-03-03 12:21 | Hospitalist Consultation ---
Date of Consultation March 03, 2021 Assessment & Plan (1) Appendicitis: CT a/p on 03/03 showed mildly dilated and fluid-filled appendix with mild fat stranding. - Admitted to general surgery with plan for lap appy today with Dr. Davial - Abx per primary team - Post-op care per primary team - Post-operative anticoagulation to be resumed after surgical approval (2) Type 2 diabetes mellitus with insulin therapy: A1c was 7.1% in 01/2021 indicating good control. - Presently holding home long-acting insulin which I think makes sense while NPO for surgery. Can resume tonight at mildly lower dose (5 units) as she will be eating tomorrow. - Sliding scale insulin (3) Hypertension: BP today is 160/75. - Hold home lisinopril given it is day of surgery - Can follow Cr tomorrow and likely restart if kidney function stable. (4) Arteriosclerotic coronary artery disease: Hx of non-obstructive disease on cath. - Monitor (5) CKD (chronic kidney disease), stage III: Baseline Cr ~1.0, with eGFR ~55. - Presently at baseline. - Monitor Cr (6) History of DVT (deep vein thrombosis): On apixaban as outpatient for hx of blood clots. - Resume per primary team. History of Present Illness Attending Physician: Bharathi Davila DO, FACS History of Present Illness 85yo F w/ hx of DM and hx of VTE who presents with abdominal pain consistent with subacute appendicitis. Plan for surgery today. Patient seen prior to surgery and in good spirits. Mildly anxious about surgery and having some slight RLQ pain, but no fevers, chills, or other systemic findings. Allergies Allergy/AdvReac Type Severity Reaction Status Date / Time Iodinated Contrast Media Allergy Severe Rash Verified 03/02/21 17:57 aspirin Allergy Intermediate RASH, GI Verified 03/02/21 17:57 UPSET nitrofurantoin Allergy Intermediate HIVES Verified 03/02/21 17:57 Penicillins Allergy Intermediate rash Verified 03/02/21 17:57 Sulfa (Sulfonamide Allergy Intermediate rash Verified 03/02/21 17:57 Antibiotics) aspartame [From Prevalite] Allergy Mild Diarrhea Verified 03/02/21 17:57 cholestyramine Allergy Mild LIP Verified 03/02/21 17:57 SWELLING WITH PREVALITE (GEN QUESTRAN) amlodipine Allergy Unknown Unknown Verified 03/02/21 17:57 dexlansoprazole Allergy Unknown Unknown Verified 03/02/21 17:57 [From Dexilant] atropine AdvReac Mild PASSED OUT Verified 03/02/21 17:57 cephalexin AdvReac Mild DIARRHEA Verified 03/02/21 17:57 cimetidine AdvReac Mild INSOMNIA Verified 03/02/21 17:57 diphenoxylate AdvReac Mild PASSED OUT Verified 03/02/21 17:57 metformin AdvReac Mild DIARRHEA Verified 03/02/21 17:57 Home Medications Medication Instructions Recorded Confirmed Type Multivitamin Women 50 Plus 1 tab PO QAM 11/12/18 03/02/21 History Lactobacillus 1 cap PO QDL #30 cap 05/08/19 03/02/21 History acidophilus-Bifidobac.animalis 31 billion cell capsule acyclovir 5 % topical ointment 1 appln TOP 6XD PRN 05/08/19 03/02/21 History cholecalciferol (vitamin D3) 25 1,000 units PO QAM 05/08/19 03/02/21 History mcg (1,000 unit) capsule acetaminophen 650 mg 650 mg PO QID PRN tab 10/11/19 03/02/21 History tablet,extended release esomeprazole magnesium [Nexium] 20 mg PO BID 03/05/20 03/02/21 History betamethasone valerate 0.1 % 1 appln TOP BID PRN #45 gm 05/14/20 03/02/21 Rx topical cream pen needle, diabetic 32 gauge x #300 ea 07/31/20 01/30/21 Rx 5/32" apixaban 5 mg tablet 5 mg PO BID #180 tab 09/10/20 03/02/21 Rx clobetasol 0.05 % topical ointment 1 applic TOP 3XWK #45 g 10/28/20 03/02/21 Rx insulin glargine [Basaglar KwikPen 7 unit SUBCUT HS 11/23/20 03/02/21 History U-100 Insulin] lorazepam 0.5 mg tablet 0.25 mg PO DAILY PRN #14 tab 11/27/20 03/02/21 Rx Wheeled Walker #1 ea 12/17/20 01/30/21 Rx lisinopril 10 mg tablet 10 mg PO BID #180 tab 12/24/20 03/02/21 Rx meclizine 25 mg PO TID #14 tab 01/07/21 03/02/21 Rx dicyclomine 10 mg capsule 10 mg PO TID PRN #90 cap 02/04/21 03/02/21 Rx nystatin 100,000 unit/gram topical 1 applic TOP BID #60 gm 02/17/21 03/02/21 Rx powder insulin aspart U-100 [Novolog 25 unit SUBCUT DIRECTED 03/02/21 03/02/21 History Flexpen U-100 Insulin] Patient History Medical History Anemia Anxiety Arteriosclerotic coronary artery disease Nonobstructive on 2010 cath ([facility]) Chronic anticoagulation Chronic osteoarthritis CKD (chronic kidney disease), stage III Delayed gastric emptying Diabetic neuropathy Dyslipidemia GERD (gastroesophageal reflux disease) Headache, migraine Hemorrhoids Hiatal hernia History of blood clots X 2016 Hypertension IBS (irritable bowel syndrome) Incisional hernia IPMN (intraductal papillary mucinous neoplasm) Lichen sclerosus et atrophicus Obesity Osteopenia Periodic limb movement disorder Sleep apnea Type 2 diabetes mellitus Venous insufficiency Vitamin D deficiency Surgical History H/O foot surgery BILATERAL Bunion correction. H/O shoulder surgery LEFT H/O umbilical hernia repair H/O ventral hernia repair recurrent incisional hernia repair History of bilateral oophorectomy History of cholecystectomy History of tooth extraction WISDOM TEETH Hx of cataract surgery Hx of vaginal hysterectomy Family History Daughter Congenital clotting factor deficiency Mother Diabetes Hypertension Myocardial infarction Stroke syndrome Stroke Brother Cancer Hypertension Pancreatic cancer Prostate cancer Family/Other Cardiac disorder Father Hypertension Other Heart disease No family history of bleeding disorder Denies family history of Breast cancer Colorectal cancer Social History Smoking Status: Never smoker Tobacco Type: Cigarettes Second Hand Exposure: No; Hx Alcohol Use: No Hx Substance Use: No Preferred Language: Congolese Communication Ability: Effective Visual Impairment: No Limitations Hearing Ability: Normal Wire Annealer Required: No Beliefs That Will Affect Care: None marital status: Current Living Situation: Spouse Current Living Situation Comment: lives in 1 story home w/ . [facility] current occupational status: retired current occupation: worked at the [employer] Feels Safe at Home: Yes Childhood Exposure to Second-Hand Smoke: No Diet Comment: regular caffeine: No during the past year weight has: decreased > 10 lbs Dental Care, Regularly: Yes Physical Activity Frequency: Other Physical Activity Frequency Comment: Limited due to physical condition. Seatbelt Use: always Sunscreen Use: No Assistive Devices: Cane, Glasses and Walker Review of Systems Review of Systems: All systems reviewed & are unremarkable except as noted in HPI & below Physical Exam Constitutional: WD/WN, vitals as above Eyes: EOM intact bilaterally; no conjunctival abnormality ENMT: external ear and nose normal, oropharynx normal Neck: trachea midline, no thyromegaly normal visual inspection Respiratory: normal respiratory effort, lungs clear to auscultation no respiratory distress Cardiovascular: RRR, no murmur, no edema Gastrointestinal (Abdomen): Inspection/Auscultation: abdomen normal to inspection and normal bowel sounds; abdomen not distended Percussion/Palpation: + abdomen tender (RLQ) and abdomen soft; no guarding and abdomen not rigid Musculoskeletal: no cyanosis or clubbing, extremities motor strength 5/5 Skin: no rashes, warm and dry Neurologic: moves all extremities and awake Psychiatric: Orientation: alert, oriented to person and cooperative Results & Data Results & Data ([facility]) Vital Signs (Past 12 Hours) Vital Signs Temp Pulse Resp BP Pulse Ox 03/03/21 08:50 36.8 C 57 L 18 158/76 H 95 03/03/21 00:33 36.6 C 89 16 189/80 H 96 PG Care Time/CCT Total # of Minutes Spent Total Time Spent with Patient: Total time spent is greater than 50% in coordination of care (as documented) at patient's floor/unit and/or counseling patient: Coding Level of Care Code 18451 Office/OBS Consult Lvl 4 Diagnoses Appendicitis K37 Type 2 diabetes mellitus with insulin therapy E11.9; Z79.4 Hypertension I10 Arteriosclerotic coronary artery disease I25.10 CKD (chronic kidney disease), stage III N18.3 History of DVT (deep vein thrombosis) Z86.718
--- NOTE | 2021-03-03 13:01 | Surgery Progress Note ---
Date of Service March 03, 2021 Assessment & Plan (1) Acute appendicitis: 85-year-old female with acute appendicitis. She has been on antibiotics in case delayed for 24 hours due to Eliquis. Plan for laparoscopic appendectomy, possible open The risk of the procedure were discussed to include but not limited to bleeding, infection, conversion open, damage surrounding structures, need for future more extensive surgery, abscess, and the risk of anesthesia Diagnosis, details of procedure and recovery, and plan of care were discussed with the patient, all questions were answered, the patient expressed understanding agrees with plan of care as stated (2) Chronic anticoagulation: Admission and Anticipated Discharge Date Admission Date: March 02, 2021 Subjective 85-year-old female admitted with acute appendicitis on Eliquis, last dose yesterday morning. Her pain is controlled but still present. No overnight events. Physical Exam Constitutional: WD/WN, vitals as above Respiratory: normal respiratory effort, lungs clear to auscultation Cardiovascular: RRR, no murmur, no edema Gastrointestinal (Abdomen): Inspection/Auscultation: + abdominal surgical scar Percussion/Palpation: + abdomen tender (Tender to palpation the right lower quadrant) and abdomen soft; no guarding, abdomen not rigid and no hernia Results & Data ([facility]) Vital Signs (Past 12 Hours) Vital Signs Temp Pulse Resp BP Pulse Ox 03/03/21 08:50 36.8 C 57 L 18 158/76 H 95 Laboratory Results Laboratory Results - last 24 hr 03/02/21 03/02/21 03/02/21 17:11 17:11 17:43 WBC Cancelled 10.35 RBC Cancelled 4.16 L Hgb Cancelled 12.7 Hct Cancelled 37.9 MCV Cancelled 91.1 MCH Cancelled 30.5 MCHC Cancelled 33.5 RDW Std Deviation Cancelled 46.1 RDW Coeff of Harpreet Cancelled 14.0 Plt Count Cancelled 231 MPV Cancelled 9.7 Immature Gran % (Auto) Cancelled 0.2 Neut % (Auto) Cancelled 74.3 Lymph % (Auto) Cancelled 17.0 [place] % (Auto) Cancelled 7.8 Eos % (Auto) Cancelled 0.5 Baso % (Auto) Cancelled 0.2 Neut # (Auto) Cancelled 7.69 H Lymph # (Auto) Cancelled 1.76 [place] # (Auto) Cancelled 0.81 H Eos # (Auto) Cancelled 0.05 Baso # (Auto) Cancelled 0.02 Immature Gran # (Auto) Cancelled 0.02 Absolute Nucleated RBC Cancelled Nucleated RBC % (auto) Cancelled Neutrophils % (Manual) Cancelled Band Neutrophils % Cancelled Lymphocytes % (Manual) Cancelled Prolymphocyte % Cancelled Reactive Lymphs % (Man) Cancelled Monocytes % (Manual) Cancelled Eosinophils % (Manual) Cancelled Basophils % (Manual) Cancelled Metamyelocytes % (Man) Cancelled Myelocytes % (Man) Cancelled Promyelocytes % (Man) Cancelled Blast Cells % (Manual) Cancelled Plasma Cell % (Manual) Cancelled Other Cells % Cancelled Nucleated RBC % Cancelled Neutrophils # (Manual) Cancelled Band Neutrophils # Cancelled Total Absolute Neuts Cancelled Lymphocytes # (Manual) Cancelled Prolymphocyte # Cancelled Reactive Lymphs # Cancelled Total Abs Lymphocytes Cancelled Monocytes # (Manual) Cancelled Eosinophils # (Manual) Cancelled Basophils # (Manual) Cancelled Metamyelocytes # (Man) Cancelled Myelocytes # (Manual) Cancelled Promyelocytes # (Man) Cancelled Blast Cells # (Man) Cancelled Plasma Cell # (Manual) Cancelled Other Cells # Cancelled Nucleated RBCs # (Man) Cancelled Hypersegmented Neuts Cancelled Hyposegmented Neuts Cancelled Hypogranular Neuts Cancelled Large Granular Lymphs Cancelled # Lrg Granular Lymphs Cancelled Hairy Cells Cancelled Smudge Cells Cancelled Toxic Granulation Cancelled Toxic Vacuolation Cancelled Dohle Bodies Cancelled Jeanine Rods Cancelled Platelet Estimate Cancelled Hypogranular Platelets Cancelled Clumped Platelets Cancelled Giant Platelets Cancelled Platelet Satelliting Cancelled RBC Morphology Cancelled Polychromasia Cancelled Hypochromasia Cancelled Poikilocytosis Cancelled Basophilic Stippling Cancelled Anisocytosis Cancelled Microcytosis Cancelled Macrocytosis Cancelled Spherocytes Cancelled Pappenheimer Bodies Cancelled Sickle Cells Cancelled Target Cells Cancelled Tear Drop Cells Cancelled Ovalocytes Cancelled Stomatocytes Cancelled [employer] Bodies Cancelled Echinocytes Cancelled Acanthocytes (Spur) Cancelled Rouleaux Cancelled RBC Agglutinates Cancelled Schistocytes Cancelled RBC Morph Comment Cancelled Sezary Cell Cancelled Sodium Cancelled Potassium Cancelled Chloride Cancelled Carbon Dioxide Cancelled Anion Gap Cancelled BUN Cancelled Creatinine Cancelled Est Cr Clr Drug Dosing Cancelled Est GFR ( Amer) Cancelled Est GFR (Non-Af Amer) Cancelled BUN/Creatinine Ratio Cancelled Glucose Cancelled POC Glucose Calcium Cancelled Total Bilirubin Cancelled AST Cancelled ALT Cancelled Alkaline Phosphatase Cancelled Total Protein Cancelled Albumin Cancelled Globulin Cancelled Albumin/Globulin Ratio Cancelled Lipase Cancelled Urine Color Urine Appearance Urine pH Ur Specific [place] Urine Protein Urine Glucose (UA) Urine Ketones Urine Blood Urine Nitrite Urine Bilirubin Urine Urobilinogen Ur Leukocyte Esterase Urine WBC (Auto) Urine RBC (Auto) U Hyaline Cast (Auto) U Epithel Cells (Auto) Urine Bacteria (Auto) COVID-19 Eval Order SARS-CoV-2 (PCR) Influenza Type A (PCR) Influenza Type B (PCR) RSV (RT-PCR) 03/02/21 03/02/21 03/02/21 17:43 18:25 21:52 WBC RBC Hgb Hct MCV MCH MCHC RDW Std Deviation RDW Coeff of Harpreet Plt Count MPV Immature Gran % (Auto) Neut % (Auto) Lymph % (Auto) [place] % (Auto) Eos % (Auto) Baso % (Auto) Neut # (Auto) Lymph # (Auto) [place] # (Auto) Eos # (Auto) Baso # (Auto) Immature Gran # (Auto) Absolute Nucleated RBC Nucleated RBC % (auto) Neutrophils % (Manual) Band Neutrophils % Lymphocytes % (Manual) Prolymphocyte % Reactive Lymphs % (Man) Monocytes % (Manual) Eosinophils % (Manual) Basophils % (Manual) Metamyelocytes % (Man) Myelocytes % (Man) Promyelocytes % (Man) Blast Cells % (Manual) Plasma Cell % (Manual) Other Cells % Nucleated RBC % Neutrophils # (Manual) Band Neutrophils # Total Absolute Neuts Lymphocytes # (Manual) Prolymphocyte # Reactive Lymphs # Total Abs Lymphocytes Monocytes # (Manual) Eosinophils # (Manual) Basophils # (Manual) Metamyelocytes # (Man) Myelocytes # (Manual) Promyelocytes # (Man) Blast Cells # (Man) Plasma Cell # (Manual) Other Cells # Nucleated RBCs # (Man) Hypersegmented Neuts Hyposegmented Neuts Hypogranular Neuts Large Granular Lymphs # Lrg Granular Lymphs Hairy Cells Smudge Cells Toxic Granulation Toxic Vacuolation Dohle Bodies Jeanine Rods Platelet Estimate Hypogranular Platelets Clumped Platelets Giant Platelets Platelet Satelliting RBC Morphology Polychromasia Hypochromasia Poikilocytosis Basophilic Stippling Anisocytosis Microcytosis Macrocytosis Spherocytes Pappenheimer Bodies Sickle Cells Target Cells Tear Drop Cells Ovalocytes Stomatocytes [employer] Bodies Echinocytes Acanthocytes (Spur) Rouleaux RBC Agglutinates Schistocytes RBC Morph Comment Sezary Cell Sodium 139 Potassium 4.1 Chloride 108 H Carbon Dioxide 24 Anion Gap 7.0 BUN 18 Creatinine 0.90 Est Cr Clr Drug Dosing 49.8 Est GFR ( Amer) 68.1 Est GFR (Non-Af Amer) 58.7 BUN/Creatinine Ratio 20.3 H Glucose 156 H POC Glucose Calcium 9.5 Total Bilirubin 0.8 AST 14 L ALT 24 Alkaline Phosphatase 99 Total Protein 7.6 Albumin 3.4 Globulin 4.2 H Albumin/Globulin Ratio 0.8 L Lipase 131 Urine Color Yellow Urine Appearance Clear Urine pH 7.0 Ur Specific [place] 1.013 Urine Protein Negative Urine Glucose (UA) Negative Urine Ketones Negative Urine Blood Negative Urine Nitrite Negative Urine Bilirubin Negative Urine Urobilinogen Negative Ur Leukocyte Esterase 2+ H Urine WBC (Auto) 10-30 H Urine RBC (Auto) 0-4 U Hyaline Cast (Auto) 0 U Epithel Cells (Auto) >30 H Urine Bacteria (Auto) Negative COVID-19 Eval Order CovFluRsv at [facility] SARS-CoV-2 (PCR) Influenza Type A (PCR) Influenza Type B (PCR) RSV (RT-PCR) 03/02/21 03/03/21 03/03/21 21:52 00:20 06:03 WBC RBC Hgb Hct MCV MCH MCHC RDW Std Deviation RDW Coeff of Harpreet Plt Count MPV Immature Gran % (Auto) Neut % (Auto) Lymph % (Auto) [place] % (Auto) Eos % (Auto) Baso % (Auto) Neut # (Auto) Lymph # (Auto) [place] # (Auto) Eos # (Auto) Baso # (Auto) Immature Gran # (Auto) Absolute Nucleated RBC Nucleated RBC % (auto) Neutrophils % (Manual) Band Neutrophils % Lymphocytes % (Manual) Prolymphocyte % Reactive Lymphs % (Man) Monocytes % (Manual) Eosinophils % (Manual) Basophils % (Manual) Metamyelocytes % (Man) Myelocytes % (Man) Promyelocytes % (Man) Blast Cells % (Manual) Plasma Cell % (Manual) Other Cells % Nucleated RBC % Neutrophils # (Manual) Band Neutrophils # Total Absolute Neuts Lymphocytes # (Manual) Prolymphocyte # Reactive Lymphs # Total Abs Lymphocytes Monocytes # (Manual) Eosinophils # (Manual) Basophils # (Manual) Metamyelocytes # (Man) Myelocytes # (Manual) Promyelocytes # (Man) Blast Cells # (Man) Plasma Cell # (Manual) Other Cells # Nucleated RBCs # (Man) Hypersegmented Neuts Hyposegmented Neuts Hypogranular Neuts Large Granular Lymphs # Lrg Granular Lymphs Hairy Cells Smudge Cells Toxic Granulation Toxic Vacuolation Dohle Bodies Jeanine Rods Platelet Estimate Hypogranular Platelets Clumped Platelets Giant Platelets Platelet Satelliting RBC Morphology Polychromasia Hypochromasia Poikilocytosis Basophilic Stippling Anisocytosis Microcytosis Macrocytosis Spherocytes Pappenheimer Bodies Sickle Cells Target Cells Tear Drop Cells Ovalocytes Stomatocytes [employer] Bodies Echinocytes Acanthocytes (Spur) Rouleaux RBC Agglutinates Schistocytes RBC Morph Comment Sezary Cell Sodium Potassium Chloride Carbon Dioxide Anion Gap BUN Creatinine Est Cr Clr Drug Dosing Est GFR ( Amer) Est GFR (Non-Af Amer) BUN/Creatinine Ratio Glucose POC Glucose 137 H 144 H Calcium Total Bilirubin AST ALT Alkaline Phosphatase Total Protein Albumin Globulin Albumin/Globulin Ratio Lipase Urine Color Urine Appearance Urine pH Ur Specific [place] Urine Protein Urine Glucose (UA) Urine Ketones Urine Blood Urine Nitrite Urine Bilirubin Urine Urobilinogen Ur Leukocyte Esterase Urine WBC (Auto) Urine RBC (Auto) U Hyaline Cast (Auto) U Epithel Cells (Auto) Urine Bacteria (Auto) COVID-19 Eval Order SARS-CoV-2 (PCR) NEGATIVE Influenza Type A (PCR) Negative Influenza Type B (PCR) Negative RSV (RT-PCR) Negative 03/03/21 11:57 WBC RBC Hgb Hct MCV MCH MCHC RDW Std Deviation RDW Coeff of Harpreet Plt Count MPV Immature Gran % (Auto) Neut % (Auto) Lymph % (Auto) [place] % (Auto) Eos % (Auto) Baso % (Auto) Neut # (Auto) Lymph # (Auto) [place] # (Auto) Eos # (Auto) Baso # (Auto) Immature Gran # (Auto) Absolute Nucleated RBC Nucleated RBC % (auto) Neutrophils % (Manual) Band Neutrophils % Lymphocytes % (Manual) Prolymphocyte % Reactive Lymphs % (Man) Monocytes % (Manual) Eosinophils % (Manual) Basophils % (Manual) Metamyelocytes % (Man) Myelocytes % (Man) Promyelocytes % (Man) Blast Cells % (Manual) Plasma Cell % (Manual) Other Cells % Nucleated RBC % Neutrophils # (Manual) Band Neutrophils # Total Absolute Neuts Lymphocytes # (Manual) Prolymphocyte # Reactive Lymphs # Total Abs Lymphocytes Monocytes # (Manual) Eosinophils # (Manual) Basophils # (Manual) Metamyelocytes # (Man) Myelocytes # (Manual) Promyelocytes # (Man) Blast Cells # (Man) Plasma Cell # (Manual) Other Cells # Nucleated RBCs # (Man) Hypersegmented Neuts Hyposegmented Neuts Hypogranular Neuts Large Granular Lymphs # Lrg Granular Lymphs Hairy Cells Smudge Cells Toxic Granulation Toxic Vacuolation Dohle Bodies Jeanine Rods Platelet Estimate Hypogranular Platelets Clumped Platelets Giant Platelets Platelet Satelliting RBC Morphology Polychromasia Hypochromasia Poikilocytosis Basophilic Stippling Anisocytosis Microcytosis Macrocytosis Spherocytes Pappenheimer Bodies Sickle Cells Target Cells Tear Drop Cells Ovalocytes Stomatocytes [employer] Bodies Echinocytes Acanthocytes (Spur) Rouleaux RBC Agglutinates Schistocytes RBC Morph Comment Sezary Cell Sodium Potassium Chloride Carbon Dioxide Anion Gap BUN Creatinine Est Cr Clr Drug Dosing Est GFR ( Amer) Est GFR (Non-Af Amer) BUN/Creatinine Ratio Glucose POC Glucose 148 H Calcium Total Bilirubin AST ALT Alkaline Phosphatase Total Protein Albumin Globulin Albumin/Globulin Ratio Lipase Urine Color Urine Appearance Urine pH Ur Specific [place] Urine Protein Urine Glucose (UA) Urine Ketones Urine Blood Urine Nitrite Urine Bilirubin Urine Urobilinogen Ur Leukocyte Esterase Urine WBC (Auto) Urine RBC (Auto) U Hyaline Cast (Auto) U Epithel Cells (Auto) Urine Bacteria (Auto) COVID-19 Eval Order SARS-CoV-2 (PCR) Influenza Type A (PCR) Influenza Type B (PCR) RSV (RT-PCR) Diagnostic Findings I personally reviewed the CT scan and agree with the read of likely acute appendicitis. ABDOMEN AND PELVIS CT WITH ORAL CONTRAST CT DOSE: 682.05 mGy.cm HISTORY: Lower quadrant abdominal pain. TECHNIQUE: Multiaxial CT images of the abdomen and pelvis were performed following the use of oral contrast. A dose lowering technique was utilized adhering to the principles of ALARA. COMPARISON STUDY: Abdomen and pelvis CT 11/23/2020. FINDINGS: Stable 5 mm groundglass nodule within the left lower lobe on image 64. There is mild subpleural reticulation. No pneumoperitoneum. No pneumatosis. No suspicious lytic or blastic osseous lesions. Mild hepatic steatosis. Cholecystectomy. The unenhanced spleen and adrenal glands unremarkable. Moderate bilateral cortical renal thinning, unchanged. There are small bilateral pe ripelvic renal cysts. No ureteral stones or hydronephrosis. No retroperitoneal lymphadenopathy. Normal caliber abdominal aorta. There is a stable 1.5 cm hypodense lesion within the pancreatic head. This favors a cystic lesion of the pancreas such as an intraductal papillary mucinous neoplasm. A pessary device is noted. The bladder is unremarkable. Colonic diverticulosis. No evidence for acute diverticulitis. No evidence for bowel obstruction. There is thickening at the cecal base with fluid-filled and prominent appendix measuring up to 8 mm in diameter. There is mild periappendiceal fat stranding. The appendix wall appears to be slightly thickened. This is increased in size compared the prior study when it measures 4 mm. Therefore, this is suspicious for acute cholecystitis. There is a small fat-containing right inguinal hernia. IMPRESSION: 1. Mildly dilated and fluid-filled appendix with mild fat stranding. The appendix measures up to 8 mm in diameter, previously measuring 4 mm. Therefore, this likely represents acute appendicitis. 2. There is thickening at the cecal base which could be reactive. An underlying cecal mass is considered less likely but not entirely excluded. 3. No hydronephrosis. 4. Colonic diverticulosis. No evidence for acute diverticulitis. 5. Cholecystectomy. PG Care Time/CCT Total # of Minutes Spent Total Time Spent with Patient: Total time spent is greater than 50% in coordination of care (as documented) at patient's floor/unit and/or counseling patient: Coding Level of Care Code 62700 Subseq Hosp Care Lvl 2 Diagnoses Acute appendicitis K35.30 Acute appendicitis type: with localized peritonitis Appendicitis gangrene presence: without gangrene Appendicitis perforation presence: without perforation Appendicitis abscess presence: without abscess Chronic anticoagulation Z79.01 (1) Acute appendicitis Acute appendicitis type: with localized peritonitis Appendicitis gangrene presence: without gangrene Appendicitis perforation presence: without perforation Appendicitis abscess presence: without abscess Qualified Code(s): K35.30 - Acute appendicitis with localized peritonitis, without perforation or gangrene
[2021-03-03] MEDS ORDERED: BUPIVACAINE 0.5 % 5 MG/1 ML MPF 30ML VIAL ONE (13:40)
[2021-03-03] MEDS ORDERED: ATROPINE SULFATE 0.1 MG/ML 10ML SYR IV PRN (13:46)
[2021-03-03] MEDS ORDERED: ePHEDrine sulfate 50 MG/ML AMP IV PRN (13:46)
[2021-03-03] MEDS ORDERED: HYDROmorphone INJ 1 MG/ML SYRINGE IV PRN (13:46)
[2021-03-03] MEDS ORDERED: ONDANSETRON INJ 2 MG/ML 2 ML VIAL IV PRN (13:46)
[2021-03-03] MEDS ORDERED: PHENYLEPHRINE 100MCG/ML 5ML SYR ONE (14:22)
[2021-03-03] MEDS ORDERED: ePHEDrine sulfate 50 MG/ML SYR ONE (14:22)
--- NOTE | 2021-03-03 14:23 | Electrocardiogram Report ---
Test Reason : Blood Pressure : / mmHG Vent. Rate : 073 BPM Atrial Rate : 073 BPM P-R Int : 152 ms QRS Dur : 090 ms QT Int : 408 ms P-R-T Axes : 043 010 007 degrees QTc Int : 449 ms Normal sinus rhythm Inferior infarct , age undetermined Abnormal ECG When compared with ECG of 07-JAN-2021 12:51, No significant change was found Confirmed by Mina Arellano ([id number]) on 03/03/2021 2:22:42 PM Referred By: REFERRED SELF Confirmed By:Mina Arellano
[2021-03-03] MEDS ORDERED: NEOSTIGMINE METHYLSULFATE 5 MG/5 ML SYR ONE (14:35)
[2021-03-03] MEDS ORDERED: GLYCOPYRROLATE 0.2 MG/ML VIAL ONE (14:35)
[2021-03-03] MEDS ORDERED: SUGAMMADEX SODIUM 200 MG/2 ML VIAL IV ONE (14:40)
--- NOTE | 2021-03-03 14:55 | Operative Report ---
PG Post Operative Report Pre & Post Diagnosis Operation Date: 03/03/21 12:15 Pre-Op Diagnosis: Appendicitis Post-Op Diagnosis: Appendicitis I identified the patient and participated in the time-out.: Yes Procedure Operation Date: 03/03/21 12:15 Actual Procedures p Laparoscopic Appendectomy - Bharathi Davila DO, EDGAR Surgeon Bharathi Davila DO, FACS Teletypewriter Installer Jamir Mathews Estimated Blood Loss 5 Findings Consistent with Post-Op Diagnosis Early acute, nonperforated appendicitis. Good hemostasis. Adhesions to prior placed mesh were left in place. Specimens Appendix Anesthesia Type General Complications none Disposition Accompanied Patient To Recovery: No Disposition: Recovery Room Indications 85-year-old female admitted overnight with acute appendicitis. She is on Eliquis and so we waited to perform surgery until 24 hours after her last dose. Plan for laparoscopic appendectomy, possible open. The risks of the procedure were discussed, all questions were answered, and the patient agreed to proceed with surgery as planned. Description of Procedure The patient was properly identified, consented, and taken to the operating room where she was placed in the supine position. General endotracheal anesthesia was induced. SCDs and a safety belt were placed. Preoperative antibiotics were administered. A Minor catheter [was/was not] placed. The patient's abdomen was prepped and draped in the standard sterile fashion. Surgical timeout was performed and all parties were in agreement that this was the correct patient and procedure to be performed and we continued as planned. The patient had prior laparoscopic hernia repair with a 12.5 cm mesh placement, therefore we did not perform a Escudero entry but attempted to avoid the mesh. A stab incision was made in the left upper quadrant and the Veress needle was inserted. Saline drop test confirmed entry into the peritoneum. The abdomen was insufflated with carbon dioxide which the patient tolerated without incident. An incision was made superior and to the left of the umbilicus. The abdomen was then entered using the Optiview technique and a 5 mm trocar. The laparoscope was inserted and no damage from initial trocar or Veress needle placement was noted. There were adhesions of small bowel to the mesh, but we were able to avoid these in order to perform the procedure. They did not appear to be causing any type of obstruction or complication. A 12 mm port was placed in the left lower quadrant with care not to damage the epigastric vessels, and a 5 mm port was placed in the suprapubic midline with care not to damage the bladder. The patient was placed in Trendelenburg position and rotated towards the left. The small bowel was swept away from the right lower quadrant. The cecum was grasped with an atraumatic grasper exposing the appendix. The appendix was mildly inflamed and there was no evidence of perforation. There was no fluid in the pelvis. A window was created between the base of the appendix and the mesoappendix. A sutton loaded endoscopic stapler was then used to divide the appendix at its base. Harmonic scalpel was then used to divide the mesoappendix. Hemostasis was good. The appendix was placed in an Endo Catch bag and removed through the left lower quadrant port site. The right lower quadrant and pelvis was irrigated and hemostasis was found to be good. We again explored the remainder the abdomen and the adhesions not appear to be causing any problems, so they were left in place. The left lower quadrant port site fascia was closed with 0 Vicryl suture utilizing the [place] device. The remaining 5 mm ports were removed and the abdomen was allowed to collapse. The wound was irrigated, and the skin of all ports was closed with 4-0 Monocryl subcuticular sutures. Dermabond was placed over the wounds. The patient was extubated in the operating room and taken to the PACU where she recovered without apparent incident. All sponge, instrument and needle counts were correct at the conclusion of the procedure. The patient tolerated the procedure well. The physician's assistant branch operations manager was present and scrubbed for the entire to the case. He was critical in positioning the patient, prepping and draping, retraction and exposure, driving the laparoscope, closure the incisions, and placement of the dressings. I attest to the content of the Intraoperative Record and any orders documented therein. Any exceptions are noted below.
[2021-03-03] MEDS: fentaNYL citrate 100 MCG/2 ML VIAL IV PRN ×3 (15:16→15:37)
--- NOTE | 2021-03-03 15:55 | Anesthesiology Progress Note ---
Date of Service March 03, 2021 Anesthesia Post Procedure Vital Signs Vital Signs: Temp Pulse Pulse Pulse Resp BP BP 03/03/21 15:50 36.4 C L 63 20 147/85 H 03/03/21 15:40 63 18 167/86 H 03/03/21 15:30 64 17 168/89 H 03/03/21 15:20 66 18 165/87 H 03/03/21 15:10 70 16 171/76 H 03/03/21 15:01 36.2 C L 67 20 188/81 H 03/03/21 13:34 36.6 C 67 18 192/89 H 03/03/21 08:50 36.8 C 57 L 18 158/76 H 03/03/21 00:33 36.6 C 89 16 189/80 H 03/02/21 23:44 72 18 155/74 H 03/02/21 22:30 77 18 171/88 H 03/02/21 21:52 81 18 159/78 H 03/02/21 20:22 77 18 178/71 H 03/02/21 19:16 79 18 174/79 H 03/02/21 18:00 67 19 165/75 H 03/02/21 17:50 65 16 167/79 H 03/02/21 17:40 71 18 03/02/21 17:30 73 17 178/98 H 03/02/21 17:20 73 21 03/02/21 17:10 74 14 03/02/21 17:01 76 22 185/89 H 03/02/21 17:00 72 18 185/89 H Pulse Ox 03/03/21 15:50 97 03/03/21 15:40 93 03/03/21 15:30 94 03/03/21 15:20 95 03/03/21 15:10 98 03/03/21 15:01 96 03/03/21 13:34 93 03/03/21 08:50 95 03/03/21 00:33 96 03/02/21 23:44 95 03/02/21 22:30 96 03/02/21 21:52 97 03/02/21 20:22 98 03/02/21 19:16 98 03/02/21 18:00 96 03/02/21 17:50 97 03/02/21 17:40 03/02/21 17:30 95 03/02/21 17:20 97 03/02/21 17:10 98 03/02/21 17:01 98 03/02/21 17:00 97 Pain Intensity Right Lower Abdomen: Pain Intensity: 3 Transfer of Care Handoff Completed per policy Notes Mental Status: alert / awake / arousable and participated in evaluation Patient Amnestic to Procedure: Yes Nausea / Vomiting: adequately controlled Pain: adequately controlled Airway Patency, RR, SpO2: stable & adequate BP & HR: stable & adequate Hydration State: stable & adequate Anesthetic Complications: no major complications apparent and Pt Satisfied with anesthetic care
[2021-03-03] MEDS: LACTATED RINGER'S 1,000 ML IV SCH (17:04)
[2021-03-03] MEDS ORDERED: COUGH DROP (SUGAR FREE) LOZ 24 LOZ/1 BOX BUCCAL ONE (20:43)
[2021-03-04] MEDS: MoRPHine SULFATE 2 MG/ML CARP IV PRN (02:38)
[2021-03-04] MEDS: LACTATED RINGER'S 1,000 ML IV SCH ×2 (03:16→06:18)
[2021-03-04] MEDS: ONDANSETRON INJ 2 MG/ML 2 ML VIAL IV SCH ×5 (05:09→21:08)
[2021-03-04] MEDS: metroNIDAZOLE 500 MG/100 ML BAG IV SCH (06:18)
[2021-03-04 06:40] LABS: Basophils # (auto) 0.01 K/uL (0-0.2); Basophils % (auto) 0.1 %; Hematocrit (blood only) 35.8 % (37-47); Hemoglobin 11.7 g/dL (12.0-16.0); Immature Granulocytes # (auto) 0.01 K/uL (0.00-0.02); Immature Granulocytes % (auto) 0.1 %; Lymphocytes # (auto) 0.88 K/uL (1.2-3.4); Lymphocytes % (auto) 10.1 %; Mean Corpuscular Hemoglobin 30.2 pg (25-34); Mean Corpuscular Hgb Conc 32.7 g/dL (32-36); Mean Corpuscular Volume 92.3 fL (80-100); Mean Platelet Volume 9.6 fL (7.4-10.4); Monocytes # (auto) 0.52 K/uL (0.11-0.59); Neutrophils # (auto) 7.26 K/uL (1.4-6.5); Neutrophils % (auto) 83.7 %; Platelet Count 218 K/uL (130-400); RDW Standard Deviation 46.5 fL (36.4-46.3); Red Blood Count 3.88 M/uL (4.2-5.4); White Blood Count 8.68 K/uL (4.8-10.8)
[2021-03-04] MEDS ORDERED: LORazepam 0.5 MG TAB PO PRN (07:39)
[2021-03-04] MEDS ORDERED: DICYCLOMINE HCL 10 MG CAP PO PRN (07:39)
[2021-03-04] MEDS ORDERED: MAGNESIUM HYDROXIDE SUSP 30 ML UDC PO PRN (07:40)
[2021-03-04] MEDS ORDERED: oxyCODONE/ACETAMINOPHEN 5mg/325mg TAB PO PRN (07:40)
--- NOTE | 2021-03-04 07:46 | Surgery Progress Note ---
Date of Service March 04, 2021 Assessment & Plan (1) Acute appendicitis: POD 1 lap appy advance diet hold Eliquis, can resume other meds WBC 8, d/c IV abx recheck later today Admission and Anticipated Discharge Date Admission Date: March 02, 2021 Supervising Physician Co-Signing Physician Notes 85-year-old female POD #1 laparoscopic appendectomy. Sore in the left lower quadrant at 12 mm port site. Pain she had prior to surgery is gone. Otherwise doing well. On exam she is afebrile stable vitals. Abdomen is soft, appropriately tender to palpation, incisions without infection. WBC normal, labs unremarkable. We will advance her diet slowly and get her up and moving around. DC antibiotics and IV fluids. Likely discharge tomorrow morning. Subjective advancing diet, c/o LLQ pain (at 12 mm port), no nuasea Physical Exam Gastrointestinal (Abdomen): Inspection/Auscultation: + abdominal surgical incision (dry) Percussion/Palpation: abdomen soft Results & Data ([facility]) Vital Signs (Past 12 Hours) Vital Signs Temp Pulse Resp BP Pulse Ox 03/04/21 07:10 36.9 C 62 16 138/71 94 03/04/21 03:36 36.5 C 66 14 138/74 92 03/03/21 22:12 36.4 C 77 15 138/74 91 03/03/21 20:08 36.3 C L 76 15 155/80 H 93 PG Care Time/CCT Total # of Minutes Spent Total Time Spent with Patient: Total time spent is greater than 50% in coordination of care (as documented) at patient's floor/unit and/or counseling patient: Coding Level of Care Code None Diagnoses Acute appendicitis K35.30 Acute appendicitis type: with localized peritonitis Appendicitis abscess presence: without abscess Appendicitis gangrene presence: without gangrene Appendicitis perforation presence: without perforation (1) Acute appendicitis Acute appendicitis type: with localized peritonitis Appendicitis abscess presence: without abscess Appendicitis gangrene presence: without gangrene Appendicitis perforation presence: without perforation Qualified Code(s): K35.30 - Acute appendicitis with localized peritonitis, without perforation or gangrene
[2021-03-04] MEDS: oxyCODONE/ACETAMINOPHEN 5mg/325mg TAB PO PRN (08:00)
[2021-03-04] MEDS: lisinopril 10 MG TAB PO SCH ×2 (09:41→19:21)
[2021-03-04] MEDS: SENNA 8.6 MG TAB PO SCH (09:42)
[2021-03-04] MEDS: PANTOprazole 40 MG TAB PO SCH ×2 (09:42→19:21)
[2021-03-04] MEDS: INSULIN ASPART 100 UNITS/ML 3 ML PEN SC SCH ×4 (09:46→21:00)
[2021-03-04] MEDS: ALUMINUM/MAGNESIUM SUSP 30 ML UDC PO PRN ×2 (10:51→19:21)
--- NOTE | 2021-03-04 14:57 | Hospitalist Progress Note ---
Date of Service March 04, 2021 Assessment & Plan (1) Appendicitis: CT a/p on 03/03 showed mildly dilated and fluid-filled appendix with mild fat stranding. - Admitted to general surgery with lap appy on 03/[address] Davila - Abx stopped per primary team - Post-op care per primary team - Post-operative anticoagulation to be resumed after surgical approval (2) Type 2 diabetes mellitus with insulin therapy: A1c was 7.1% in 01/2021 indicating good control. - Presently holding home long-acting insulin which I think makes sense while NPO for surgery. Can resume tonight at mildly lower dose (5 units) tonight. Return to normal dosing when discharged. - Sliding scale insulin (3) Hypertension: BP today is 140/75. - Restarted home lisinopril - Can follow Cr tomorrow (4) Arteriosclerotic coronary artery disease: Hx of non-obstructive disease on cath. - Monitor (5) CKD (chronic kidney disease), stage III: Baseline Cr ~1.0, with eGFR ~55. - Presently at baseline. - Monitor Cr (6) History of DVT (deep vein thrombosis): On apixaban as outpatient for hx of blood clots. - Resume per primary team. Given medical stability, Hospital Medicine team will sign off. Please re-consult with any questions or concerns. Thank you for letting us assist in the care of this patient! Admission and Anticipated Discharge Date Admission Date: March 02, 2021 Subjective With some left quadrant pain. Passing some small gas, but no BM. Reports no fevers/chills, chest pain, shortness of breath, nausea, or vomiting. Physical Exam Constitutional: WD/WN, vitals as above Eyes: EOM intact bilaterally; no conjunctival abnormality ENMT: external ear and nose normal, oropharynx normal Neck: trachea midline, no thyromegaly normal visual inspection Respiratory: normal respiratory effort, lungs clear to auscultation no respiratory distress Cardiovascular: RRR, no murmur, no edema Gastrointestinal (Abdomen): Inspection/Auscultation: + abdominal surgical incision (Look good. No erythema or drainage.) and + hypoactive bowel sounds; abdomen not distended Percussion/Palpation: + abdomen tender (LLQ) and abdomen soft; no guarding and abdomen not rigid Musculoskeletal: no cyanosis or clubbing, extremities motor strength 5/5 Skin: no rashes, warm and dry Neurologic: moves all extremities and awake Psychiatric: Orientation: alert, oriented to person and cooperative Results & Data Results & Data ([facility]) Vital Signs (Past 12 Hours) Vital Signs Temp Pulse Resp BP Pulse Ox 03/04/21 13:00 36.4 C L 62 18 138/72 95 03/04/21 07:10 36.9 C 62 16 138/71 94 03/04/21 03:36 36.5 C 66 14 138/74 92 PG Care Time/CCT Total # of Minutes Spent Total Time Spent with Patient: Total time spent is greater than 50% in coordination of care (as documented) at patient's floor/unit and/or counseling patient: Coding Level of Care Code 65997 Subseq Hosp Care Lvl 2 Diagnoses Appendicitis K37 Type 2 diabetes mellitus with insulin therapy E11.9; Z79.4 Hypertension I10 Arteriosclerotic coronary artery disease I25.10 CKD (chronic kidney disease), stage III N18.3 History of DVT (deep vein thrombosis) Z86.719
[2021-03-04] MEDS ORDERED: INSULIN GLARGINE SOLOSTAR 100 UNITS/ML 3 ML PEN SC SCH (21:00)
[2021-03-05] MEDS: oxyCODONE/ACETAMINOPHEN 5mg/325mg TAB PO PRN ×2 (01:35→02:25)
[2021-03-05] MEDS: ONDANSETRON INJ 2 MG/ML 2 ML VIAL IV SCH ×2 (02:26→10:28)
[2021-03-05 08:06] LABS: Calcium 9.3 mg/dl (8.5-10.1); Creatinine Clr Calc Pharmacy 39.6 ml/min; Est GFR (African American) 51.7; Est GFR (Non-African American) 44.6; Potassium 3.8 mmol/L (3.5-5.1)
[2021-03-05] MEDS: SENNA 8.6 MG TAB PO SCH (08:12)
[2021-03-05] MEDS: PANTOprazole 40 MG TAB PO SCH (08:12)
[2021-03-05] MEDS: lisinopril 10 MG TAB PO SCH (08:13)
--- NOTE | 2021-03-05 08:27 | Surgery Progress Note ---
Date of Service March 05, 2021 Assessment & Plan (1) Acute appendicitis: POD#2 laparoscopic appendectomy Patient clinically feeling well Has some expected dilshad-incisional ttp, but is managed with prn pain medication Tolerating a regular diet May resume Eliquis today Will plan on discharge to home today with plans to follow up in clinic with Dr. Davila in 1-2 weeks. Dispo instructions given Admission and Anticipated Discharge Date Admission Date: March 04, 2021 Supervising Physician Co-Signing Physician Notes Patient seen and examined, agree with above. POD #2 laparoscopic appendectomy, doing well, pain improved. Afebrile with stable vitals, abdomen soft, appropriate tender to palpation, incisions without infection. Plan to DC to home with follow-up in 2 weeks in the general surgery clinic. Activity restrictions and wound care instructions reviewed, return precautions given. Subjective Patient states she feels well this AM. She did have some pain in the left sided abdomen yesterday evening and required 2 percocerts for relief. She is otherwise tolerating a regular diet. She is passing flatus. Physical Exam Physical Exam: awake/alert Constitutional: well developed and well nourished; no acute distress Respiratory: normal respiratory effort Gastrointestinal (Abdomen): Inspection/Auscultation: + abdominal surgical incision (c/d/i with dermabond overtop, no signs of infection) Percussion/Palpation: + abdomen tender (some ttp dislhad-incisionally) and abdomen soft Results & Data ([facility]) Vital Signs (Past 12 Hours) Vital Signs Temp Pulse Resp BP Pulse Ox 03/05/21 07:04 36.9 C 61 18 132/61 91 03/04/21 23:34 36.5 C 61 18 137/71 94 03/04/21 21:02 62 157/75 H PG Care Time/CCT Total # of Minutes Spent Total Time Spent with Patient: Total time spent is greater than 50% in coordination of care (as documented) at patient's floor/unit and/or counseling patient: Coding Level of Care Code None Diagnoses Acute appendicitis K35.30 Acute appendicitis type: with localized peritonitis Appendicitis abscess presence: without abscess Appendicitis gangrene presence: without gangrene Appendicitis perforation presence: without perforation (1) Acute appendicitis Acute appendicitis type: with localized peritonitis Appendicitis abscess presence: without abscess Appendicitis gangrene presence: without gangrene Appendicitis perforation presence: without perforation Qualified Code(s): K35.30 - Acute appendicitis with localized peritonitis, without perforation or gangrene
[2021-03-05] MEDS: INSULIN ASPART 100 UNITS/ML 3 ML PEN SC SCH (09:05)
--- NOTE | 2021-03-06 11:35 | Discharge Summary ---
Date of Service March 06, 2021 Admission HPI Per Admitting Provider This is an 81. Female who has an underlying history of IBS. Patient notes that she has had multiple visits to the emergency department this year secondary to vague abdominal complaints. She notes no significant pathology has been identified prior to today's visit. She notes that she began to have some vague abdominal pain earlier today around 9:00 this morning. She says that she took a dicyclomine pill as she thought it was related to her IBS. She did not achieve any relief from this. She denies any fevers, shakes, chills. She also denies any nausea or vomiting. She does note the pain is generalized but is predominately located in the right lower quadrant. She said the pain does not radiate anywhere. She does not note any modifying factors. In the emergency department the patient had labs and imaging performed which I independently reviewed. CBC revealed her white blood cell count, hemoglobin, hematocrit, and platelet count were all within normal range. A chemistry profile revealed her sodium, BUN, creatinine, and potassium were all within normal range. Urinalysis showed positive leukocyte esterase as well as 10-30 white blood cells per high-power field. An EKG showed normal sinus rhythm without any acute ischemic changes. Covid test has been ordered and is pending. In addition the patient had a CT scan of her abdomen. The study showed that she had a dilated appendix up to 9 mm which was increased when compared to CT scan from November of this year. There is some fat stranding around the appendix which was suspicious for acute appendicitis. At the time my visit patient was noted to be hemodynamically stable and afebrile. She was in no distress Principal Diagnosis Acute appendicitis Discharge Exam Gastrointestinal (Abdomen) Inspection/Auscultation: + abdominal surgical incision (clean, dry) Percussion/Palpation: abdomen soft Discharge Data Allergies Allergy/AdvReac Type Severity Reaction Status Date / Time Iodinated Contrast Media Allergy Severe Rash Verified 03/02/21 17:57 aspirin Allergy Intermediate RASH, GI Verified 03/02/21 17:57 UPSET nitrofurantoin Allergy Intermediate HIVES Verified 03/02/21 17:57 Penicillins Allergy Intermediate rash Verified 03/02/21 17:57 Sulfa (Sulfonamide Allergy Intermediate rash Verified 03/02/21 17:57 Antibiotics) aspartame [From Prevalite] Allergy Mild Diarrhea Verified 03/02/21 17:57 cholestyramine Allergy Mild LIP Verified 03/02/21 17:57 SWELLING WITH PREVALITE (GEN QUESTRAN) amlodipine Allergy Unknown Unknown Verified 03/02/21 17:57 dexlansoprazole Allergy Unknown Unknown Verified 03/02/21 17:57 [From Dexilant] atropine AdvReac Mild PASSED OUT Verified 03/02/21 17:57 cephalexin AdvReac Mild DIARRHEA Verified 03/02/21 17:57 cimetidine AdvReac Mild INSOMNIA Verified 03/02/21 17:57 diphenoxylate AdvReac Mild PASSED OUT Verified 03/02/21 17:57 metformin AdvReac Mild DIARRHEA Verified 03/02/21 17:57 Consultations 03/02/21 21:34 ED Decision to Admit Stat 03/02/21 22:37 Consult Hospitalist Routine Procedures Performed Operation Date: 03/03/21 12:15 Actual Procedures p Laparoscopic Appendectomy - Bharathi Davila, DO, FACS Ordered Studies 03/02/21 16:52 CT abd pelvis oral con only Urgent Hospital Course (1) Acute appendicitis: 85 y/o female presented to the ER with abdominal pain initially thought to be IBS related. White count was 10,[address] was consistent with acute appendicitis. Since she had taken Eliquis that morning, she was admitted to the surgical service overnight and taken to the operating room for laparoscopic appendectomy the next day. Hospitalist service was consulted routinely given her history of DM, HTN, CAD, CKD. On POD 1 she was having pain from 12 mm LLQ port site which limited activity and she continued to require IV narcotics. By the second day her pain was managed with oral analgesics and she was tolerating diet. She was stable for discharge home. Total Time Total Time Spent Total Time Spent (In Minutes): 15 Discharge Plan Discharge Items Patient Disposition: Home - Self-Care Reason For Visit: AB PAIN Discharge Diagnosis: appendectomy Activity: Per Instructions section Lifting: No more than 10 pounds Bathing Comment: may shower; no soaking in tubs/pools Exercise/Sports: Wait until after follow-up appointment Driving/Machine Use: do not resume driving while taking narcotics for pain Non-emergency contact: Surgeon Call non-emergency contact if: you have any medication questions, your pain is not controlled, your pain is worsening, your pain is unusual for you, you have a fever, your temperature is above 101.5, your wound has increased redness, your wound has increased drainage and your wound pain has increased Follow-up/Referrals: Rosemary Zuluaga DO [Primary Care Provider] - Bharathi Davila DO, FACS [Physician] - 03/13/21 9:15 am (Please call to schedule follow up in clinic within 1-2 weeks) Diet: Carb Consistent or DM2 Addtl Attending Provider Instructions: You may resume your Eliquis today, 03/05/21. Do not take Tylenol concurrently with the narcotic Percocet for pain. Both Tylenol and Percocet contain Acetaminophen and you should not exceed >3grams of Acetaminophen within a 24 hour time period. You may purchase stool softeners over the counter if needed to prevent constipation while taking narcotics for pain. Examples include Miralax, Colace, or Senna-negar. Pending Studies at Discharge: Yes Studies:: surgical pathology Stand-Alone Forms: My [facility], Smoking Cessation Medications and DC Order Prescriptions: New oxycodone-acetaminophen [Percocet] 5-325 mg tablet 1 - 2 tab PO .q4-6h PRN (Reason: pain, for initial therapy, max 6 tabs per day) Qty: 15 RF: 0 Continued betamethasone valerate 0.1 % cream 1 appln TOP BID PRN (Reason: rash) Qty: 45 RF: 0 (DME) pen needle, diabetic [BD Ultra-Fine Aby Pen Needle] 32 gauge x 5/32" needle See Rx Instructions .ROUTE .MEDSUPPLY Qty: 300 RF: 5 clobetasol [Temovate] 0.05 % ointment 1 applic TOP 3XWK Qty: 45 RF: 3 lisinopril 10 mg tablet 10 mg PO BID Qty: 180 RF: 1 dicyclomine 10 mg capsule 10 mg PO TID PRN (Reason: abdominal discomfort) Qty: 90 RF: 1 nystatin [Nyamyc] 100,000 unit/gram powder 1 applic TOP BID Qty: 60 RF: 3 Prodigen 31 billion cell capsule 1 cap PO QDL Qty: 30 RF: 0 (DME) Wheeled Walker Misc See Rx Instructions .ROUTE .MEDSUPPLY Qty: 1 RF: 0 lorazepam 0.5 mg tablet 0.25 mg PO DAILY PRN (Reason: anxiety) Qty: 14 RF: 0 cholecalciferol (vitamin D3) 1,000 unit capsule 1,000 units PO QAM RF: 0 acyclovir [Zovirax] 5 % ointment 1 appln TOP 6XD PRN (Reason: Cold Sores) RF: 0 esomeprazole magnesium [Nexium] 20 mg Capsule,Delayed Release(Dr/Ec) 20 mg PO BID RF: 0 Basaglar KwikPen U-100 Insulin 100 unit/mL (3 mL) insulin pen 7 unit subcut HS RF: 0 Multivitamin Women 50 Plus 8 mg iron-400 mcg-300 mcg Tablet 1 tab PO QAM RF: 0 meclizine 25 mg tablet 25 mg PO TID Qty: 14 RF: 0 insulin aspart U-100 [Novolog Flexpen U-100 Insulin] 100 unit/mL (3 mL) insulin pen 25 unit SUBCUT DIRECTED RF: 0 Discontinued acetaminophen [Tylenol 8 Hour] 650 mg tablet extended release 650 mg PO QID PRN (Reason: Pain) RF: 0 No Action Eliquis 5 mg tablet 5 mg PO BID Qty: 180 RF: 1 Discharge Orders: Discharge Order (Routine); Ordered 03/05/21 Ordered By: Jana Cordova Admission Data Admit Date/Time: 03/04/21 15:31 Attending Provider: Bharathi Davila Admit Provider: Bharathi Davila Primary Care Provider: Rosemary Zuluaga Other Providers: Adithya Garcia ; Valery Luque ; Bhartahi Davila Other Interventions: Discharge Summary Assessment (RN) Last Done: 03/05/21 09:28 Coding Level of Care Code D/C Day Management <30 mins Diagnoses Acute appendicitis K35.30 Acute appendicitis type: with localized peritonitis Appendicitis abscess presence: without abscess Appendicitis gangrene presence: without gangrene Appendicitis perforation presence: without perforation
== END 2021-03-05 11:26 | disposition home or self-care (01) ==
LOC: ED 15:23 → 3N 15:23

== ENCOUNTER 2021-05-19 05:57 | Observation (INO) ==
[2021-05-19 06:42] LABS: Basophils # (auto) 0.02 K/uL (0-0.2); Basophils % (auto) 0.3 %; Eosinophils # (auto) 0.31 K/uL (0-0.5); Eosinophils % (auto) 4.8 %; Hematocrit (blood only) 40.3 % (37-47); Hemoglobin 12.9 g/dL (12.0-16.0); Immature Granulocytes # (auto) 0.01 K/uL (0.00-0.02); Immature Granulocytes % (auto) 0.2 %; Lymphocytes # (auto) 2.58 K/uL (1.2-3.4); Lymphocytes % (auto) 39.6 %; Mean Corpuscular Hemoglobin 29.8 pg (25-34); Mean Corpuscular Volume 93.1 fL (80-100); Monocytes # (auto) 0.72 K/uL (0.11-0.59); Neutrophils # (auto) 2.88 K/uL (1.4-6.5); Neutrophils % (auto) 44.1 %; Platelet Count 265 K/uL (130-400); RDW Coefficient of Variation 13.7 % (11.5-14.5); RDW Standard Deviation 46.7 fL (36.4-46.3); Red Blood Count 4.33 M/uL (4.2-5.4); White Blood Count 6.52 K/uL (4.8-10.8)
[2021-05-19 06:49] LABS: Alanine Aminotransferase 25 U/L (12-78); Albumin Level 3.3 gm/dl (3.4-5.0); Aspartate Aminotransferase 15 U/L (15-37); BUN Creatinine Ratio 21.1 (10-20); Blood Urea Nitrogen 22 mg/dl (7-18); Calcium 9.6 mg/dl (8.5-10.1); Carbon Dioxide 25 mmol/L (21-32); Chloride 108 mmol/L (98-107); Creatinine Clr Calc Pharmacy 44.7 ml/min; Est GFR (African American) 58.5 ml/min; Est GFR (Non-African American) 50.5 ml/min; Glucose 157 mg/dl (70-99); Lipase 177 U/L (73-393); Sodium 139 mmol/L (136-145)
[2021-05-19 06:54] LABS: Albumin Globulin Ratio 0.8 (0.9-2); Alkaline Phosphatase 95 U/L (45-117); Bilirubin,Total 0.6 mg/dl (0.2-1); Total Protein 7.3 gm/dl (6.4-8.2); Troponin I < 0.015 ng/ml (0-0.045)
--- NOTE | 2021-05-19 07:06 | Emergency Department Note ---
Impression & Plan Right-sided chest pain ED Provider Note INFORMANT: Patient ED PROVIDER(S): Sam Patricio MD CHIEF COMPLAINT: Chest pain PLAN: Disposition: Admitted Condition: Good Outpatient prescription management: none Referral: None MEDICAL DECISION MAKING: Patient presented with fluctuating chest pain that was intermittent this morning. Her work-up revealed an unremarkable CBC and chemistry panel. The patient's D-dimer was significantly elevated. Her troponin was negative. The patient does have a dye allergy. She is currently hemodynamically stable. ECG did not reveal any acute ischemic findings. The patient was sent for ultrasound imaging. Given her risk factors and the nature of the pain I discussed treatment in the hospital for rule out. The patient and were in [facility]. I did discuss the case with Dr. Miller and patient was evaluated in the ER for further management and work-up regarding her chest pain and elevated D- dimer. Ultrasound imaging did not reveal any acute DVT issues. I refer you to the internal medicine notes for further work-up. Triage Nursing notes reviewed and agree them. Vital Signs: reviewed and remarkable for no significant abnormalities Differential diagnosis: Cardiac ischemia, aortic dissection, pulmonary embolism, pneumothorax, pneumonia, pericarditis, myocarditis, esophageal rupture, GERD, cholecystitis, pancreatitis, musculoskeletal, as well as other pathologies. Diagnostics interpreted by me: ECG: Rate:59 Rhythm: sinus michael [place]:Normal QRS:Normal ST segements:No elevation or depression Other:No PACs or PVCs Cardiac Monitoring:Cardiac monitoring ordered by me: The patient was placed on continuous cardiac monitoring and observed. It revealed a normal sinus rhythm at 62 beats per minute without ectopy or evidence of dysrhythmia. Imaging studies: Chest x-ray. Findings: A chest x-ray was performed and revealed no pneumothorax, effusion, infiltrate, pulmonary edema, free air under the diaphragm, or wide mediastinum. Bilateral lower extremity Dopplers did not reveal any evidence of acute DVT. Chronic thrombus noted. Unchanged from prior. HPI: The patient is a 85 year old female who presents to the Emergency Room with complaints of right chest pain. This started 0400 this morning and is currently resolved. The patient also notes the following associated symptoms, pain radiating to throat. The patient has taken no medication for relieving factors. Current pain is rated as 0/10. Currently on Eliquis. Pain not changed with breathing. Pt denies LOC, headache, fevers, chills, diaphoresis, visual changes, neck pain, breathing difficulties, nausea, vomiting, abdominal pain, back pain, melena, hematochezia, urinary symptoms, numbness, weakness, lymphadenopathy, rash, or other complaints. ROS: See above HPI for pertinent positives & negatives. A total of 10 systems reviewed and were otherwise negative. PAST MEDICAL HISTORY:See Below , DM PAST SURGICAL HISTORY:See Below, FAMILY HISTORY:See Below SOCIAL HISTORY:See Below, HOME MEDICATIONS:See Below ALLERGIES:See Below VITALS:See Below PHYSICAL EXAMINATION: GENERAL: Awake, alert, well-appearing, in no distress HENT: Normocephalic, atraumatic. Oropharynx unremarkable. EYES: Normal conjunctiva. Sclera non-icteric. NECK: Inspection normal. Non-tender. Supple. No nuchal rigidity. FROM. No masses. RESPIRATORY: Clear to auscultation. No wheezes. No rales. Normal respiratory effort. CARDIAC: Normal rate. Normal rhythm. No murmurs. No rubs. Extremities warm and well perfused. Pulses equal. No JVD. GI: Soft, non-distended. No tenderness to palpation. No rebound or guarding. No masses. RECTAL: Deferred. MUSCULOSKELETAL: Atraumatic. Chest examination reveals no tenderness. The back is symmetrical on inspection without obvious abnormality. There is no CVA tenderness to palpation. No joint edema. LOWER EXTREMITIES: Calves are equal size bilaterally and non-tender. No edema. No discoloration. NEURO: Normal sensorium. No sensory or motor deficits noted. SKIN: No rash or jaundice noted. Sam Patricio MD Past Med/Surg History Medical History Anemia Anxiety Arteriosclerotic coronary artery disease Nonobstructive on 2010 cath ([facility]) Chronic anticoagulation Chronic osteoarthritis CKD (chronic kidney disease), stage III Delayed gastric emptying Diabetic neuropathy Dyslipidemia GERD (gastroesophageal reflux disease) Headache, migraine Hemorrhoids Hiatal hernia History of blood clots X 2, 2016 History of DVT (deep vein thrombosis) Hypertension IBS (irritable bowel syndrome) Incisional hernia IPMN (intraductal papillary mucinous neoplasm) Lichen sclerosus et atrophicus Obesity Osteopenia Periodic limb movement disorder Sleep apnea Type 2 diabetes mellitus Venous insufficiency Vitamin D deficiency Surgical History H/O foot surgery BILATERAL Bunion correction. H/O shoulder surgery LEFT H/O umbilical hernia repair H/O ventral hernia repair recurrent incisional hernia repair History of bilateral oophorectomy History of cholecystectomy History of tooth extraction WISDOM TEETH Hx of cataract surgery Hx of vaginal hysterectomy S/P laparoscopic appendectomy (03/03/21) Laparoscopic Appendectomy - Bharathi Davila, DO, FACS Family History Daughter Congenital clotting factor deficiency Mother Diabetes Hypertension Myocardial infarction Stroke syndrome Stroke Brother Cancer Hypertension Pancreatic cancer Prostate cancer Family/Other Cardiac disorder Father Hypertension Other Heart disease No family history of bleeding disorder Denies family history of Breast cancer Colorectal cancer Social History Smoking Status: Never smoker Tobacco Type: Cigarettes Second Hand Exposure: No; Hx Alcohol Use: No Hx Substance Use: No Preferred Language: Tuvaluan Communication Ability: Effective Visual Impairment: No Limitations Hearing Ability: Normal Vaccinator Required: No Beliefs That Will Affect Care: None marital status: Current Living Situation: Spouse Current Living Situation Comment: lives in [address] w/ . On waiting list @[facility] current occupational status: retired current occupation: worked at the [employer] Other Information That Helps Us Care for You: No Feels Safe at Home: Yes Safety Concerns: Feels Safe At This Time Childhood Exposure to Second-Hand Smoke: No Diet Comment: regular caffeine: No during the past year weight has: decreased > 10 lbs Dental Care, Regularly: Yes Physical Activity Frequency: Other Physical Activity Frequency Comment: Limited due to physical condition. Seatbelt Use: always Sunscreen Use: No Assistive Devices: Walker Allergies Allergies Allergy/AdvReac Type Severity Reaction Status Date / Time Iodinated Contrast Media Allergy Severe Rash Verified 05/19/21 07:41 aspirin Allergy Intermediate RASH, GI Verified 05/19/21 07:41 UPSET nitrofurantoin Allergy Intermediate HIVES Verified 05/19/21 07:41 Penicillins Allergy Intermediate rash Verified 05/19/21 07:41 Sulfa (Sulfonamide Allergy Intermediate rash Verified 05/19/21 07:41 Antibiotics) aspartame [From Prevalite] Allergy Mild Diarrhea Verified 05/19/21 07:41 cholestyramine Allergy Mild LIP Verified 05/19/21 07:41 SWELLING WITH PREVALITE (GEN QUESTRAN) amlodipine Allergy Unknown Unknown Verified 05/19/21 07:41 dexlansoprazole Allergy Unknown Unknown Verified 05/19/21 07:41 [From Dexilant] atropine AdvReac Mild PASSED OUT Verified 05/19/21 07:41 cephalexin AdvReac Mild DIARRHEA Verified 05/19/21 07:41 cimetidine AdvReac Mild INSOMNIA Verified 05/19/21 07:41 diphenoxylate AdvReac Mild PASSED OUT Verified 05/19/21 07:41 metformin AdvReac Mild DIARRHEA Verified 05/19/21 07:41 Home Meds Home Medications Medication Instructions Recorded Confirmed Multivitamin Women 50 Plus 1 tab PO QAM 11/12/18 05/19/21 Lactobacillus 1 cap PO QDL #30 cap 05/08/19 05/19/21 acidophilus-Bifidobac.animalis 31 billion cell capsule acyclovir 5 % topical ointment 1 appln TOP 6XD PRN 05/08/19 05/19/21 cholecalciferol (vitamin D3) 25 1,000 units PO QAM 05/08/19 05/19/21 mcg (1,000 unit) capsule esomeprazole magnesium [Nexium] 20 mg PO BID 03/05/20 05/19/21 insulin glargine 100 unit/mL (3 9 unit SUBCUT HS ml 04/11/21 05/19/21 mL) subcutaneous pen insulin aspart U-100 [Novolog 0 unit SUBCUT DIRECTED 05/19/21 05/19/21 Flexpen U-100 Insulin] Previous Rx's Medication Instructions Recorded betamethasone valerate 0.1 % 1 appln TOP BID PRN #45 gm 05/14/20 topical cream pen needle, diabetic 32 gauge x #300 ea 07/31/20" clobetasol 0.05 % topical ointment 1 applic TOP 3XWK #45 g 10/28/20 lorazepam 0.5 mg tablet 0.25 mg PO DAILY PRN #14 tab 11/27/20 Wheeled Walker #1 ea 12/17/20 lisinopril 10 mg tablet 10 mg PO BID #180 tab 12/24/20 meclizine 25 mg PO TID #14 tab 01/07/21 dicyclomine 10 mg capsule 10 mg PO TID PRN #90 cap 02/04/21 nystatin 100,000 unit/gram topical 1 applic TOP BID #60 gm 02/17/21 powder apixaban 5 mg tablet 5 mg PO BID #180 tab 03/06/21 tramadol 50 mg tablet 50 mg PO Q8H PRN #60 tab 03/18/21 Results & Data (ED) Vital Signs Vital Signs - 24 hr 05/19/21 06:03 05/19/21 06:09 05/19/21 06:30 Temperature 36.8 C Temperature Source Oral Pulse Rate 62 57 L 59 L Pulse Rate from SpO2 Sensor 57 L 59 L Pulse Rhythm Regular Respiratory Rate 18 20 20 Respiratory Effort / Characteristics Non-Labored Spontaneous Respiratory Depth Normal Blood Pressure 198/80 H 198/80 H 182/78 H Blood Pressure Mean 119 119 112 Pulse Oximetry 97 96 96 Oxygen Delivery Method Room Air Sepsis Recent Fever Within 48 Hours No Sepsis New/Unexplained Change in Mental Status No Sepsis Action Taken by Nursing No Action Required 05/19/21 06:34 05/19/21 07:30 05/19/21 10:00 Temperature Temperature Source Pulse Rate 59 L 76 Pulse Rate from SpO2 Sensor 59 L 77 Pulse Rhythm Respiratory Rate 22 9 L Respiratory Effort / Characteristics Respiratory Depth Blood Pressure 183/99 H 167/95 H Blood Pressure Mean 127 119 Pulse Oximetry 99 95 97 Oxygen Delivery Method Room Air Sepsis Recent Fever Within 48 Hours Sepsis New/Unexplained Change in Mental Status Sepsis Action Taken by Nursing 05/19/21 11:00 Temperature Temperature Source Pulse Rate 82 Pulse Rate from SpO2 Sensor 81 Pulse Rhythm Respiratory Rate 16 Respiratory Effort / Characteristics Respiratory Depth Blood Pressure 172/100 H Blood Pressure Mean 124 Pulse Oximetry 92 Oxygen Delivery Method Sepsis Recent Fever Within 48 Hours Sepsis New/Unexplained Change in Mental Status Sepsis Action Taken by Nursing Laboratory Data Result diagrams: 05/19/21 06:12 05/19/21 06:12 Lab Results 05/19/21 05/19/21 05/19/21 Range/Units 06:12 06:12 06:12 WBC 6.52 (4.8-10.8) K/uL RBC 4.33 (4.2-5.4) M/uL Hgb 12.9 (12.0-16.0) g/dL Hct 40.3 (37-47) % MCV 93.1 (80-100) fL MCH 29.8 (25-34) pg MCHC 32.0 (32-36) g/dL RDW Std Deviation 46.7 H (36.4-46.3) fL RDW Coeff of Harpreet 13.7 (11.5-14.5) % Plt Count 265 (130-400) K/uL MPV 10.0 (7.4-10.4) fL Immature Gran % (Auto) 0.2 % Neut % (Auto) 44.1 % Lymph % (Auto) 39.6 % [place] % (Auto) 11.0 % Eos % (Auto) 4.8 % Baso % (Auto) 0.3 % Neut # (Auto) 2.88 (1.4-6.5) K/uL Lymph # (Auto) 2.58 (1.2-3.4) K/uL [place] # (Auto) 0.72 H (0.11-0.59) K/uL Eos # (Auto) 0.31 (0-0.5) K/uL Baso # (Auto) 0.02 (0-0.2) K/uL Immature Gran # (Auto) 0.01 (0.00-0.02) K/uL PT 9.8 (9.0-12.0) Seconds INR 1.0 (0.9-1.1) APTT 25.6 (21.0-31.0) Seconds PTT Ratio 1.0 D-Dimer 1170 H* (0-500) ug/L FEU Sodium 139 (136-145) mmol/L Potassium 4.0 (3.5-5.1) mmol/L Chloride 108 H (98-107) mmol/L Carbon Dioxide 25 (21-32) mmol/L Anion Gap 6.0 (3-11) BUN 22 H (7-18) mg/dl Creatinine 1.02 (0.6-1.2) mg/dl Est Cr Clr Drug Dosing 44.7 ml/min Est GFR ( Amer) 58.5 ml/min Est GFR (Non-Af Amer) 50.5 ml/min BUN/Creatinine Ratio 21.1 H (10-20) Glucose 157 H (70-99) mg/dl Calcium 9.6 (8.5-10.1) mg/dl Total Bilirubin 0.6 (0.2-1) mg/dl AST 15 (15-37) U/L ALT 25 (12-78) U/L Alkaline Phosphatase 95 (45-117) U/L Troponin I < 0.015 (0-0.045) ng/ml Total Protein 7.3 (6.4-8.2) gm/dl Albumin 3.3 L (3.4-5.0) gm/dl Globulin 4.0 (2.5-4.0) gm/dl Albumin/Globulin Ratio 0.8 L (0.9-2) Lipase 177 (73-393) U/L COVID-19 Eval Order SARS-CoV-2 (PCR) (Negative) 05/19/21 05/19/21 Range/Units 08:31 08:31 WBC (4.8-10.8) K/uL RBC (4.2-5.4) M/uL Hgb (12.0-16.0) g/dL Hct (37-47) % MCV (80-100) fL MCH (25-34) pg MCHC (32-36) g/dL RDW Std Deviation (36.4-46.3) fL RDW Coeff of Harpreet (11.5-14.5) % Plt Count (130-400) K/uL MPV (7.4-10.4) fL Immature Gran % (Auto) % Neut % (Auto) % Lymph % (Auto) % [place] % (Auto) % Eos % (Auto) % Baso % (Auto) % Neut # (Auto) (1.4-6.5) K/uL Lymph # (Auto) (1.2-3.4) K/uL [place] # (Auto) (0.11-0.59) K/uL Eos # (Auto) (0-0.5) K/uL Baso # (Auto) (0-0.2) K/uL Immature Gran # (Auto) (0.00-0.02) K/uL PT (9.0-12.0) Seconds INR (0.9-1.1) APTT (21.0-31.0) Seconds PTT Ratio D-Dimer (0-500) ug/L FEU Sodium (136-145) mmol/L Potassium (3.5-5.1) mmol/L Chloride (98-107) mmol/L Carbon Dioxide (21-32) mmol/L Anion Gap (3-11) BUN (7-18) mg/dl Creatinine (0.6-1.2) mg/dl Est Cr Clr Drug Dosing ml/min Est GFR ( Amer) ml/min Est GFR (Non-Af Amer) ml/min BUN/Creatinine Ratio (10-20) Glucose (70-99) mg/dl Calcium (8.5-10.1) mg/dl Total Bilirubin (0.2-1) mg/dl AST (15-37) U/L ALT (12-78) U/L Alkaline Phosphatase (45-117) U/L Troponin I (0-0.045) ng/ml Total Protein (6.4-8.2) gm/dl Albumin (3.4-5.0) gm/dl Globulin (2.5-4.0) gm/dl Albumin/Globulin Ratio (0.9-2) Lipase (73-393) U/L COVID-19 Eval Order Covid19 at [facility] SARS-CoV-2 (PCR) NEGATIVE (Negative) Administered Medications Al Hydrox/Mg Hydrox/Simethicone (Aluminum/Magnesium Susp 30 Ml Udc) 30 ml PO Q6H PRN PRN Reason: GI Upset Stop: 06/18/21 12:36 Last Admin: 05/19/21 13:51 Dose: 30 ml Documented by: [id number] Apixaban (Apixaban 5 Mg Tablet) 5 mg PO BID CORINA Stop: 06/18/21 10:44 Last Admin: 05/19/21 11:29 Dose: 5 mg Documented by: [id number] Insulin Aspart (Insulin Aspart 100 Units/Ml 3 Ml Pen) 0 units SQ ACHS CORINA Stop: 06/18/21 12:59 Last Admin: 05/19/21 13:48 Dose: 3 units Documented by: [id number] Cosigned by: [id number] Lactobacillus Acidoph/Casei/Rhamnos (Advanced Probiotic 1250 Mg Capsule) 2 cap PO QDL CORINA Stop: 06/18/21 12:29 Last Admin: 05/19/21 13:49 Dose: 2 cap Documented by: [id number] Vitamin D (Cholecalciferol 1,000 Units 25 Mcg Tab) 1,000 units PO QAM CORINA Stop: 06/18/21 12:29 Last Admin: 05/19/21 13:49 Dose: 1,000 units Documented by: [id number] Discontinued Medications Lisinopril (Lisinopril 10 Mg Tab) 10 mg PO NOW STA Stop: 05/19/21 07:40 Last Admin: 05/19/21 07:52 Dose: 10 mg Documented by: [id number] Imaging Data Radiologist's Impression: Chest X-Ray 05/19/21 06:34 XR chest 1V portable HISTORY: Atypical Chest Pain COMPARISON: Chest 03/02/2021. FINDINGS: No pneumothorax or no pleural effusions. The heart remains mildly enlarged. There is mild diffuse interstitial thickening, unchanged. No new focal lung consolidations to suggest pneumonia. No evidence for pulmonary edema. IMPRESSION: Stable cardiomegaly and mild chronic interstitial thickening. Otherwise, no acute process within the chest. ACT 112: Negative or not required by law. Electronically signed by: River Briggs M.D. 05/19/2021 7:20 AM Venous Doppler Study 05/19/21 07:39 BILATERAL LOWER EXTREMITY VENOUS DOPPLER HISTORY: Right leg swelling. COMPARISON STUDY: Right leg venous Doppler 11/28/2017. FINDINGS: There is normal compressibility, flow, and augmentation within the right common femoral and right superficial femoral veins. Chronic nonocclusive thrombus within the right popliteal vein. This is similar to the prior study. The right calf vessels are patent. No DVT within the left lower extremity. IMPRESSION: 1. Chronic nonocclusive thrombus within the right popliteal vein, unchanged. 2. No acute DVT within the right or left lower extremity. ACT 112: Negative or not required by law. Electronically signed by: River Briggs M.D. 05/19/2021 8:30 AM Discharge Plan Visit Data Chief Complaint: Chest Pain Stated Complaint: CHEST PAIN - COMES AND GOES ED Provider: Sam Patricio Discharge Problem: Right-sided chest pain Patient Disposition: Admitted As Inpatient Discharge Instructions Interventions: ED Discharge Assessment Last Done: 05/19/21 12:00
[2021-05-19 07:11] LABS: Partial Thromboplastin Time 25.6 Seconds (21.0-31.0); Prothrombin Time 9.8 Seconds (9.0-12.0)
[2021-05-19 07:21] LABS: D Dimer 1170 ug/L FEU (0-500)
--- NOTE | 2021-05-19 07:21 | XRay Report ---
XR chest 1V portable HISTORY: Atypical Chest Pain COMPARISON: Chest 03/02/2021. FINDINGS: No pneumothorax or no pleural effusions. The heart remains mildly enlarged. There is mild d iffuse interstitial thickening, unchanged. No new focal lung consolidations to suggest pneumonia. No evidence for pulmonary edema. IMPRESSION: Stable cardiomegaly and mild chronic interstitial thickening. Otherwise, no acute process within the chest. ACT 112: Negative or not required by law. Electronically signed by: River Briggs M.D. 05/19/2021 7:20 AM
[2021-05-19] MEDS ORDERED: lisinopril 10 MG TAB PO STA (07:39)
--- NOTE | 2021-05-19 08:32 | Ultrasound Report ---
BILATERAL LOWER EXTREMITY VENOUS DOPPLER HISTORY: Right leg swelling. COMPARISON STUDY: Right leg venous Doppler 11/28/2017. FINDINGS: There is normal compressibility, flow, and augmentation within the right common femoral and right superficial femoral veins. Chronic nonocclusive thrombus within the right popliteal vein. This is similar to the prior study. The right calf vessels are patent. No DVT within the left lower extre mity. IMPRESSION: 1. Chronic nonocclusive thrombus within the right popliteal vein, unchanged. 2. No acute DVT within the right or left lower extremity. ACT 112: Negative or not required by law. Electronically signed by: River Briggs M.D. 05/19/2021 8:30 AM
--- NOTE | 2021-05-19 10:35 | History & Physical Report ---
Date of Service May 19, 2021 Assessment & Plan (1) Right-sided chest pain: Right sided chest pain in an 85 yo female with diabetes type 2, CKD stage 3, h/o DVT and GERD. Patient had first set of cardiac markers which are negative. D-dimer is positive. Given hsitroy of DVT and chronic DVT noted on imaging, Well Criteria is moderate risk for P/E. Will obtain V/Q perfusion scan of chest given how x-ray is negative. Patient though is not having tachycardia nor hypoxia. Will obtain Cardiac markers x 3. Will order echocardiogram. Will continue Eliquis for now as clinically doubt pulmonary emboli. Though patient is complaining of mainly non cardiac symptoms, patient has multiple risk factors for CAD. will consult cardio for further input. If cardiac markers are negative. (2) Type 2 diabetes mellitus with insulin therapy: consult glycemic control place on home regimen. (3) Obesity: BMI is greater than 34. Recommend lifestyle changes. (4) Type 2 diabetes mellitus: as noted above. (5) Hypertension: BP is above goal. will resume home meds and monitor.2 (6) Dyslipidemia: Patient is not on a statin, will obtain FLP. (7) Chronic anticoagulation: On xarelto for h/o DVT. (8) CKD (chronic kidney disease), stage III: creatinine at baseline. (9) Chronic deep vein thrombosis (DVT): Chronic nonocclusive thrombus within the right popliteal vein on eliquis. DNR History of Present Illness Chief Complaint: Chest pain Primary Care Provider: Rosemary Zuluaga DO 85 YO female arrives to ER with above chief complaint with history of diabetes Mellitus type 2, Chronic anticoagulation due to DVT, CKD (chronic kidney disease), stage III, Delayed gastric emptying, Diabetic neuropathy, Dyslipidemia, GERD (gastroesophageal reflux disease),Hypertension, IPMN (intraductal papillary mucinous neoplasm), Obesity, Type 2 diabetes mellitus. Patient reports feeling her normal self with no new complaints until early this morning at 4 am. She reports burning right sided chest pain that was located on the mid clavicular line near the upper third of the chest. Pain did not radiate and she denies any metallic taste. This resting chest pain woke her up. She also denies SOB, nausea, vomiting, feeling of impending doom, diaphoresis. Her pain did not improve with changing position and it lasted for over an hour. She woke up her as she reports she normally gets symptoms of GERD, but it is more likely midsternum, though rarely it may be right sided. She denied any precipitating or alleviating factors. As pain did not go away, she decided to go to the ER. She reports pain improved with medication given here. Allergies Allergy/AdvReac Type Severity Reaction Status Date / Time Iodinated Contrast Media Allergy Severe Rash Verified 05/19/21 07:41 aspirin Allergy Intermediate RASH, GI Verified 05/19/21 07:41 UPSET nitrofurantoin Allergy Intermediate HIVES Verified 05/19/21 07:41 Penicillins Allergy Intermediate rash Verified 05/19/21 07:41 Sulfa (Sulfonamide Allergy Intermediate rash Verified 05/19/21 07:41 Antibiotics) aspartame [From Prevalite] Allergy Mild Diarrhea Verified 05/19/21 07:41 cholestyramine Allergy Mild LIP Verified 05/19/21 07:41 SWELLING WITH PREVALITE (GEN QUESTRAN) amlodipine Allergy Unknown Unknown Verified 05/19/21 07:41 dexlansoprazole Allergy Unknown Unknown Verified 05/19/21 07:41 [From Dexilant] atropine AdvReac Mild PASSED OUT Verified 05/19/21 07:41 cephalexin AdvReac Mild DIARRHEA Verified 05/19/21 07:41 cimetidine AdvReac Mild INSOMNIA Verified 05/19/21 07:41 diphenoxylate AdvReac Mild PASSED OUT Verified 05/19/21 07:41 metformin AdvReac Mild DIARRHEA Verified 05/19/21 07:41 Home Medications Medication Instructions Recorded Confirmed Type Multivitamin Women 50 Plus 1 tab PO QAM 11/12/18 05/19/21 History Lactobacillus 1 cap PO QDL #30 cap 05/08/19 05/19/21 History acidophilus-Bifidobac.animalis 31 billion cell capsule acyclovir 5 % topical ointment 1 appln TOP 6XD PRN 05/08/19 05/19/21 History cholecalciferol (vitamin D3) 25 1,000 units PO QAM 05/08/19 05/19/21 History mcg (1,000 unit) capsule esomeprazole magnesium [Nexium] 20 mg PO BID 03/05/20 05/19/21 History betamethasone valerate 0.1 % 1 appln TOP BID PRN #45 gm 05/14/20 05/19/21 Rx topical cream pen needle, diabetic 32 gauge x #300 ea 07/31/20 05/19/21 Rx 5/32" clobetasol 0.05 % topical ointment 1 applic TOP 3XWK #45 g 10/28/20 05/19/21 Rx lorazepam 0.5 mg tablet 0.25 mg PO DAILY PRN #14 tab 11/27/20 05/19/21 Rx Wheeled Walker #1 ea 12/17/20 05/19/21 Rx lisinopril 10 mg tablet 10 mg PO BID #180 tab 12/24/20 05/19/21 Rx meclizine 25 mg PO TID #14 tab 01/07/21 05/19/21 Rx dicyclomine 10 mg capsule 10 mg PO TID PRN #90 cap 02/04/21 05/19/21 Rx nystatin 100,000 unit/gram topical 1 applic TOP BID #60 gm 02/17/21 05/19/21 Rx powder apixaban 5 mg tablet 5 mg PO BID #180 tab 03/06/21 05/19/21 Rx tramadol 50 mg tablet 50 mg PO Q8H PRN #60 tab 03/18/21 05/19/21 Rx insulin glargine 100 unit/mL (3 9 unit SUBCUT HS ml 04/11/21 05/19/21 History mL) subcutaneous pen insulin aspart U-100 [Novolog 0 unit SUBCUT DIRECTED 05/19/21 05/19/21 History Flexpen U-100 Insulin] Past Med/Surg History Medical History Anemia Anxiety Arteriosclerotic coronary artery disease Nonobstructive on 2010 cath ([facility]) Chronic anticoagulation Chronic osteoarthritis CKD (chronic kidney disease), stage III Delayed gastric emptying Diabetic neuropathy Dyslipidemia GERD (gastroesophageal reflux disease) Headache, migraine Hemorrhoids Hiatal hernia History of blood clots X 2016 History of DVT (deep vein thrombosis) Hypertension IBS (irritable bowel syndrome) Incisional hernia IPMN (intraductal papillary mucinous neoplasm) Lichen sclerosus et atrophicus Obesity Osteopenia Periodic limb movement disorder Sleep apnea Type 2 diabetes mellitus Venous insufficiency Vitamin D deficiency Surgical History H/O foot surgery BILATERAL Bunion correction. H/O shoulder surgery LEFT H/O umbilical hernia repair H/O ventral hernia repair recurrent incisional hernia repair History of bilateral oophorectomy History of cholecystectomy History of tooth extraction WISDOM TEETH Hx of cataract surgery Hx of vaginal hysterectomy S/P laparoscopic appendectomy (03/03/21) Laparoscopic Appendectomy - Bharathi Davila DO, FACS Family History Daughter Congenital clotting factor deficiency Mother Diabetes Hypertension Myocardial infarction Stroke syndrome Stroke Brother Cancer Hypertension Pancreatic cancer Prostate cancer Family/Other Cardiac disorder Father Hypertension Other Heart disease No family history of bleeding disorder Denies family history of Breast cancer Colorectal cancer Social History Smoking Status: Never smoker Tobacco Type: Cigarettes Second Hand Exposure: No; Hx Alcohol Use: No Hx Substance Use: No Preferred Language: Malay Communication Ability: Effective Visual Impairment: No Limitations Hearing Ability: Normal 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 [facility] current occupational status: retired current occupation: worked at the [employer] Feels Safe at Home: Yes Childhood Exposure to Second-Hand Smoke: No Diet Comment: regular caffeine: No during the past year weight has: decreased > 10 lbs Dental Care, Regularly: Yes Physical Activity Frequency: Other Physical Activity Frequency Comment: Limited due to physical condition. Seatbelt Use: always Sunscreen Use: No Assistive Devices: Walker Review of Systems Constitutional: no fever, no sweats and no malaise Eyes: no diplopia Ear, Nose, Mouth, Throat: no ear pain and no ear trauma Respiratory: no cough and no hemoptysis Cardiovascular: + chest pain and + chest pain at rest; no dyspnea at rest and no dyspnea on exertion Gastrointestinal: no abdominal pain Genitourinary: no dysuria and no urinary frequency Musculoskeletal: no back pain and no radicular pain Integumentary: no acne and no rash Neurologic: no gait abnormality and no falls Psychiatric: no hopelessness Endocrine: no fatigue and no polydipsia Hematologic / Lymphatic: no easy bleeding Physical Exam Constitutional: WD/WN, vitals as above Eyes: PERRL, conjunctivae normal, anicteric sclerae ENMT: external ear and nose normal, oropharynx normal Neck: trachea midline, no thyromegaly Respiratory: normal respiratory effort, lungs clear to auscultation Cardiovascular: RRR, no murmur, no edema Gastrointestinal (Abdomen): normal bowel sounds, soft, nontender, no hepatosplenomegaly laparoscopic scars noted from apendectomy Musculoskeletal: no cyanosis or clubbing, extremities motor strength 5/5 (Right calf is larger than left) Skin: no rashes, warm and dry Neurologic: PERRL, EOMI, accommodation nl, no face palsy, no dysarthria Psychiatric: A+Ox3, euthymic affect Lymphatic: no cervical or axillary lymphadenopathy Results & Data Results & Data ([facility]) Vital Signs (Past 12 Hours) Vital Signs Temp Pulse Resp BP Pulse Ox 05/19/21 10:00 76 9 L 167/95 H 97 05/19/21 07:30 59 L 22 183/99 H 95 05/19/21 06:34 99 05/19/21 06:30 59 L 20 182/78 H 96 05/19/21 06:09 57 L 20 198/80 H 96 05/19/21 06:03 36.8 C 62 18 198/80 H 97 PG Care Time/CCT Total # of Minutes Spent Total Time Spent with Patient: Total time spent is greater than 50% in coordination of care (as documented) at patient's floor/unit and/or counseling patient: Coding Level of Care Code 57248 OBS Care - Level 3 Diagnoses Right-sided chest pain R07.9 Type 2 diabetes mellitus with insulin therapy E11.9; Z79.4 Obesity E66.9 Type 2 diabetes mellitus E11.9 Hypertension I10 Dyslipidemia E78.5 Chronic anticoagulation Z79.01 CKD (chronic kidney disease), stage III N18.3 Chronic deep vein thrombosis (DVT) I82.509 Time Spent (min) 55
[2021-05-19] MEDS: APIXABAN 5 MG TABLET PO SCH ×2 (11:29→20:06)
[2021-05-19] MEDS ORDERED: PHARMACY GLYCEMIC MGMT CONSULT PRN (12:26)
[2021-05-19] MEDS ORDERED: GLUCOSE 40% GEL 15 GM TUBE PO PRN (12:30)
[2021-05-19] MEDS ORDERED: GLUCAGON FOR INJ 1 MG VIAL IM PRN (12:30)
[2021-05-19] MEDS ORDERED: GLUCOSE 10 TABS/TUBE PO PRN (12:30)
[2021-05-19] MEDS ORDERED: DEXTROSE 50% 50 ML SYRINGE IV PRN (12:30)
[2021-05-19] MEDS ORDERED: CARBOHYDRATES FOR HYPOGLYCEMIA PO PRN (12:30)
[2021-05-19] MEDS ORDERED: Nursing to Pharmacy Communication SCH (12:45)
[2021-05-19] MEDS: INSULIN ASPART 100 UNITS/ML 3 ML PEN SQ SCH ×3 (13:48→22:26)
[2021-05-19] MEDS: CHOLECALCIFEROL 1,000 UNITS 25 MCG TAB PO SCH (13:49)
[2021-05-19] MEDS: ADVANCED PROBIOTIC 1250 MG CAPSULE PO SCH (13:49)
[2021-05-19] MEDS: ALUMINUM/MAGNESIUM SUSP 30 ML UDC PO PRN ×2 (13:51→21:38)
--- NOTE | 2021-05-19 15:20 | Pharmacy Report ---
Pharmacy Glycemic Short Note 2 - Date of Service May 19, 2021 - Glycemic Short BSG Results (Last 24 hours): 05/19/21 05/19/21 06:12 12:09 Glucose 157 H POC Glucose 198 H OUTPATIENT ANTIDIABETIC REGIMEN: * Lantus 8 or 9 units at bedtime * Novolog 6-8 units with meals ASSESSMENT: * Ms Shaffer is an 85 y/o F IDDM who presents with chest pain. * Interviewed patient. She takes Novolog 6-8 units with meals (missed morning Novolog which is why BSG at lunchtime is elevated). Takes 8-9 units at bedtime based upon scale. * Will continue Lantus. * Will start weight-based stress of 2 Novolog. If necessary tighten CR. PLAN FOR INPATIENT GLYCEMIC CONTROL: * Basal insulin * Lantus 9 units SQ HS (8 units if BSG < 160 mg/dL) * Bolus insulin * NovoLog per scale ACHS or Q6hrs while NPO * Goal Range: Low 110 mg/dL - High 140 mg/dL * Correction Factor: 25 mg/dL/unit * Nutritional / Prandial insulin per carb ratio of 1 unit per 8 grams CHO consumed PLAN FOR DISCHARGE: * Continue to follow with Endocrinology
--- NOTE | 2021-05-19 16:04 | Cardiology Consultation ---
Date of Consultation May 19, 2021 Assessment & Plan (1) Right-sided chest pain: This symptom would be atypical for an acute coronary syndrome. The episodes themselves were very brief in duration and nonsustained. While her biomarkers are normal, such a brief episode of discomfort would not likely result in any elevation. Her EKG was entirely normal. We will wait for the results of her echocardiogram. Her echocardiogram looks normal I think she could likely be discharged without any additional evaluation given the very atypical nature of her chest pain. (2) Coronary disease: She has a history of coronary angiography performed in 2010 revealing nonobstructive coronary disease. No current symptoms suggestive of coronary insufficiency or angina although she is fairly limited by her orthopedic disease. She should continue aggressive secondary prevention. Her records mention use of statin therapy previously but not on this currently. Continuing apixaban and considering re-initiation of statin therapy would be recommended. History of Present Illness Reason for Consultation: Chest pain Requesting Physician: Bhavik Attending Physician: Kirby Gutierres History of Present Illness The patient is an 85-year-old woman without a known history of cardiac disease who presented to the emergency room for symptoms of chest pain. Patient stated that she was awoken from sleep with symptoms of a very discrete discomfort in the right upper pectoral area close to the shoulder. She describes this as a pressure type discomfort that lasted for approximately 1 minute. It then resolved without any specific intervention in recurred up to 45 minutes later. Again the episode lasted approximately 1 minute before resolving. Based on her concerns over a heart problem the patient went to the emergency room for evalua tion. She stated that her symptoms were not present by the time she arrived. She did not have associated symptoms such as dyspnea, palpitations or dizziness or lightheadedness. The area around this discomfort was not tender to palpation and there were no pleuritic symptoms. She cannot recall having the symptoms in the past. Patient stated that after obtaining her lower extremity Doppler exami nation the symptom recurred for approximately 30 seconds and then resolved. The patient is limited by orthopedic disease in her knees. She uses a walker at home. She does not report limiting dyspnea or any exertional chest discomfort. She did not report dizziness or lightheadedness. No sense of palpitations. She does have frequent gastrointestinal discomfort and is currently complaining of a burning in her abdomen. She attributes this to missing her morning medications and eating gravy with noodles for lunch. Allergies Allergy/AdvReac Type Severity Reaction Status Date / Time Iodinated Contrast Media Allergy Severe Rash Verified 05/19/21 07:41 aspirin Allergy Intermediate RASH, GI Verified 05/19/21 07:41 UPSET nitrofurantoin Allergy Intermediate HIVES Verified 05/19/21 07:41 Penicillins Allergy Intermediate rash Verified 05/19/21 07:41 Sulfa (Sulfonamide Allergy Intermediate rash Verified 05/19/21 07:41 Antibiotics) aspartame [From Prevalite] Allergy Mild Diarrhea Verified 05/19/21 07:41 cholestyramine Allergy Mild LIP Verified 05/19/21 07:41 SWELLING WITH PREVALITE (GEN QUESTRAN) amlodipine Allergy Unknown Unknown Verified 05/19/21 07:41 dexlansoprazole Allergy Unknown Unknown Verified 05/19/21 07:41 [From Dexilant] atropine AdvReac Mild PASSED OUT Verified 05/19/21 07:41 cephalexin AdvReac Mild DIARRHEA Verified 05/19/21 07:41 cimetidine AdvReac Mild INSOMNIA Verified 05/19/21 07:41 diphenoxylate AdvReac Mild PASSED OUT Verified 05/19/21 07:41 metformin AdvReac Mild DIARRHEA Verified 05/19/21 07:41 Home Medications Medication Instructions Recorded Confirmed Type Multivitamin Women 50 Plus 1 tab PO QAM 11/12/18 05/19/21 History Lactobacillus 1 cap PO QDL #30 cap 05/08/19 05/19/21 History acidophilus-Bifidobac.animalis 31 billion cell capsule acyclovir 5 % topical ointment 1 appln TOP 6XD PRN 05/08/19 05/19/21 History cholecalciferol (vitamin D3) 25 1,000 units PO QAM 05/08/19 05/19/21 History mcg (1,000 unit) capsule esomeprazole magnesium [Nexium] 20 mg PO BID 03/05/20 05/19/21 History betamethasone valerate 0.1 % 1 appln TOP BID PRN #45 gm 05/14/20 05/19/21 Rx topical cream pen needle, diabetic 32 gauge x #300 ea 07/31/20 05/19/21 Rx 5/32" clobetasol 0.05 % topical ointment 1 applic TOP 3XWK #45 g 10/28/20 05/19/21 Rx lorazepam 0.5 mg tablet 0.25 mg PO DAILY PRN #14 tab 11/27/20 05/19/21 Rx Wheeled Walker #1 ea 12/17/20 05/19/21 Rx lisinopril 10 mg tablet 10 mg PO BID #180 tab 12/24/20 05/19/21 Rx meclizine 25 mg PO TID #14 tab 01/07/21 05/19/21 Rx dicyclomine 10 mg capsule 10 mg PO TID PRN #90 cap 02/04/21 05/19/21 Rx nystatin 100,000 unit/gram topical 1 applic TOP BID #60 gm 02/17/21 05/19/21 Rx powder apixaban 5 mg tablet 5 mg PO BID #180 tab 03/06/21 05/19/21 Rx tramadol 50 mg tablet 50 mg PO Q8H PRN #60 tab 03/18/21 05/19/21 Rx insulin glargine 100 unit/mL (3 9 unit SUBCUT HS ml 04/11/21 05/19/21 History mL) subcutaneous pen insulin aspart U-100 [Novolog 0 unit SUBCUT DIRECTED 05/19/21 05/19/21 History Flexpen U-100 Insulin] Patient History Medical History Anemia Anxiety Arteriosclerotic coronary artery disease Nonobstructive on 2010 cath ([facility]) Chronic anticoagulation Chronic osteoarthritis CKD (chronic kidney disease), stage III Delayed gastric emptying Diabetic neuropathy Dyslipidemia GERD (gastroesophageal reflux disease) Headache, migraine Hemorrhoids Hiatal hernia History of blood clots X 2016 History of DVT (deep vein thrombosis) Hypertension IBS (irritable bowel syndrome) Incisional hernia IPMN (intraductal papillary mucinous neoplasm) Lichen sclerosus et atrophicus Obesity Osteopenia Periodic limb movement disorder Sleep apnea Type 2 diabetes mellitus Venous insufficiency Vitamin D deficiency Surgical History H/O foot surgery BILATERAL Bunion correction. H/O shoulder surgery LEFT H/O umbilical hernia repair H/O ventral hernia repair recurrent incisional hernia repair History of bilateral oophorectomy History of cholecystectomy History of tooth extraction WISDOM TEETH Hx of cataract surgery Hx of vaginal hysterectomy S/P laparoscopic appendectomy (03/03/21) Laparoscopic Appendectomy - Bharathi M. Chambers, DO, FACS Family History Daughter Congenital clotting factor deficiency Mother Diabetes Hypertension Myocardial infarction Stroke syndrome Stroke Brother Cancer Hypertension Pancreatic cancer Prostate cancer Family/Other Cardiac disorder Father Hypertension Other Heart disease No family history of bleeding disorder Denies family history of Breast cancer Colorectal cancer Social History Smoking Status: Never smoker Tobacco Type: Cigarettes Second Hand Exposure: No; Hx Alcohol Use: No Hx Substance Use: No Preferred Language: Tongan Communication Ability: Effective Visual Impairment: No Limitations Hearing Ability: Normal Railcar Switchman Required: No Beliefs That Will Affect Care: None marital status: Current Living Situation: Spouse Current Living Situation Comment: lives in 1 story home w/ . [facility] current occupational status: retired current occupation: worked at the [employer] Other Information That Helps Us Care for You: No Feels Safe at Home: Yes Safety Concerns: Feels Safe At This Time Childhood Exposure to Second-Hand Smoke: No Diet Comment: regular caffeine: No during the past year weight has: decreased > 10 lbs Dental Care, Regularly: Yes Physical Activity Frequency: Other Physical Activity Frequency Comment: Limited due to physical condition. Seatbelt Use: always Sunscreen Use: No Assistive Devices: Walker Review of Systems Review of Systems: All systems reviewed & are unremarkable except as noted in HPI & below Physical Exam Physical Exam: She is alert and oriented x3. Mood affect appear normal. She answered all questions appropriately. HEENT: Sclerae are anicteric. Pupils are equal and reactive to light and accommodation. Extraocular movements were intact. Neuro: Cranial nerves intact Neck: Examination of the submandibular region did not reveal any significant lymphadenopathy. Carotids are palpable bilaterally and free of bruits on auscultation. There was no evidence of jugular venous distention. The thyroid was not enlarged. Lungs: Lungs are clear to auscultation bilaterally. There are no rales wheezes or rhonchi. She has normal respiratory effort without use of accessory muscles. There is normal pulmonary excursion. Cardiac: The rhythm was regular. S1 and S2 were normal. There are no murmurs on examination. The PMI was not markedly displaced on palpation. Extremities: Patient has bilateral radial pulses that are equal in intensity. There is no evidence cyanosis or clubbing. There was no evidence of significant peripheral edema bilaterally. Skin: There are no rashes noted on examination today. Results & Data ([facility]) Vital Signs (Past 12 Hours) Vital Signs Temp Pulse Pulse Resp BP BP Pulse Ox 05/19/21 15:27 36.6 C 71 18 147/76 H 95 05/19/21 15:15 73 05/19/21 12:07 36.5 C 87 17 168/95 H 92 05/19/21 11:30 81 20 167/97 H 05/19/21 11:00 82 16 172/100 H 92 05/19/21 10:00 76 9 L 167/95 H 97 05/19/21 07:30 59 L 22 183/99 H 95 05/19/21 06:34 99 05/19/21 06:30 59 L 20 182/78 H 96 05/19/21 06:09 57 L 20 198/80 H 96 05/19/21 06:03 36.8 C 62 18 198/80 H 97 Laboratory Results Abnormal Lab Results 05/19/21 05/19/21 05/19/21 06:12 06:12 06:12 WBC 6.52 RBC 4.33 Hgb 12.9 Hct 40.3 MCV 93.1 MCH 29.8 MCHC 32.0 RDW Std Deviation 46.7 H RDW Coeff of Harpreet 13.7 Plt Count 265 MPV 10.0 Immature Gran % (Auto) 0.2 Neut % (Auto) 44.1 Lymph % (Auto) 39.6 [place] % (Auto) 11.0 Eos % (Auto) 4.8 Baso % (Auto) 0.3 Neut # (Auto) 2.88 Lymph # (Auto) 2.58 [place] # (Auto) 0.72 H Eos # (Auto) 0.31 Baso # (Auto) 0.02 Immature Gran # (Auto) 0.01 PT 9.8 INR 1.0 APTT 25.6 PTT Ratio 1.0 D-Dimer 1170 H* Sodium 139 Potassium 4.0 Chloride 108 H Carbon Dioxide 25 Anion Gap 6.0 BUN 22 H Creatinine 1.02 Est Cr Clr Drug Dosing 44.7 Est GFR ( Amer) 58.5 Est GFR (Non-Af Amer) 50.5 BUN/Creatinine Ratio 21.1 H Glucose 157 H POC Glucose Calcium 9.6 Total Bilirubin 0.6 AST 15 ALT 25 Alkaline Phosphatase 95 Troponin I < 0.015 Total Protein 7.3 Albumin 3.3 L Globulin 4.0 Albumin/Globulin Ratio 0.8 L Lipase 177 COVID-19 Eval Order SARS-CoV-2 (PCR) 05/19/21 05/19/21 05/19/21 08:31 08:31 12:09 WBC RBC Hgb Hct MCV MCH MCHC RDW Std Deviation RDW Coeff of Harpreet Plt Count MPV Immature Gran % (Auto) Neut % (Auto) Lymph % (Auto) [place] % (Auto) Eos % (Auto) Baso % (Auto) Neut # (Auto) Lymph # (Auto) [place] # (Auto) Eos # (Auto) Baso # (Auto) Immature Gran # (Auto) PT INR APTT PTT Ratio D-Dimer Sodium Potassium Chloride Carbon Dioxide Anion Gap BUN Creatinine Est Cr Clr Drug Dosing Est GFR ( Amer) Est GFR (Non-Af Amer) BUN/Creatinine Ratio Glucose POC Glucose 198 H Calcium Total Bilirubin AST ALT Alkaline Phosphatase Troponin I Total Protein Albumin Globulin Albumin/Globulin Ratio Lipase COVID-19 Eval Order Covid19 at [facility] SARS-CoV-2 (PCR) NEGATIVE 05/19/21 12:51 WBC RBC Hgb Hct MCV MCH MCHC RDW Std Deviation RDW Coeff of Harpreet Plt Count MPV Immature Gran % (Auto) Neut % (Auto) Lymph % (Auto) [place] % (Auto) Eos % (Auto) Baso % (Auto) Neut # (Auto) Lymph # (Auto) [place] # (Auto) Eos # (Auto) Baso # (Auto) Immature Gran # (Auto) PT INR APTT PTT Ratio D-Dimer Sodium Potassium Chloride Carbon Dioxide Anion Gap BUN Creatinine Est Cr Clr Drug Dosing Est GFR ( Amer) Est GFR (Non-Af Amer) BUN/Creatinine Ratio Glucose POC Glucose Calcium Total Bilirubin AST ALT Alkaline Phosphatase Troponin I < 0.015 Total Protein Albumin Globulin Albumin/Globulin Ratio Lipase COVID-19 Eval Order SARS-CoV-2 (PCR) PG Care Time/CCT Total # of Minutes Spent Total Time Spent with Patient: Total time spent is greater than 50% in coordina tion of care (as documented) at patient's floor/unit and/or counseling patient: Coding Level of Care Code INT OBSERVATION CARE 70M LVL 3 Diagnoses Right-sided chest pain R07.9 Coronary disease I25.10
--- NOTE | 2021-05-19 17:21 | XCELERA ---
[id number]
--- NOTE | 2021-05-19 17:44 | Electrocardiogram Report ---
Test Reason : Blood Pressure : / mmHG Vent. Rate : 059 BPM Atrial Rate : 059 BPM P-R Int : 154 ms QRS Dur : 090 ms QT Int : 424 ms P-R-T Axes : 043 018 019 degrees QTc Int : 419 ms Sinus bradycardia Otherwise normal ECG When compared with ECG of 02-MAR-2021 17:00, No significant change was found Confirmed by Martinez Bonner ([id number]) on 05/19/2021 5:43:49 PM Referred By: REFERRED SELF Confirmed By:Naresh Bonner
[2021-05-19] MEDS: PANTOprazole 40 MG TAB PO SCH (18:00)
--- NOTE | 2021-05-19 19:04 | Nuclear Medicine Report ---
NM pul perfusion CLINICAL HISTORY: CHEST PAIN COMPARISON STUDY: Chest CT November 12, 2018. Chest radiograph performed earlier today. TECHNIQUE: Nuclear medicine perfusion study was performed. Ventilation imaging could not be performed given Covid restrictions. 5.97 mCi of technetium 99m MAA was injected IV at 5:30 PM on May 19, 2021 . Following injection, imaging of the chest was performed in the typical projections. FINDINGS: No perfusion defects are identified on this examination. There is expected radiotracer dist ribution on this perfusion study. Despite lack of ventilation imaging, this study is considered low p robability for pulmonary embolus. IMPRESSION: Low probability for pulmonary embolus. ACT 112: Negative or not required by law. Electronically signed by: Kevin Wagner M.D. 05/19/2021 7:03 PM
[2021-05-19] MEDS: lisinopril 10 MG TAB PO SCH (20:07)
[2021-05-19] MEDS ORDERED: INSULIN GLARGINE SOLOSTAR 100 UNITS/ML 3 ML PEN SQ SCH (21:00)
[2021-05-19] MEDS ORDERED: PANTOprazole 40 MG TAB PO SCH (21:00)
[2021-05-20] MEDS: PANTOprazole 40 MG TAB PO SCH (06:17)
[2021-05-20] MEDS: INSULIN ASPART 100 UNITS/ML 3 ML PEN SQ SCH ×2 (08:07→12:31)
[2021-05-20] MEDS: lisinopril 10 MG TAB PO SCH (08:09)
[2021-05-20] MEDS: CHOLECALCIFEROL 1,000 UNITS 25 MCG TAB PO SCH (08:09)
[2021-05-20] MEDS: APIXABAN 5 MG TABLET PO SCH (08:09)
[2021-05-20] MEDS ORDERED: CEROVITE ADV FORMULA TAB PO SCH (09:00)
[2021-05-20] MEDS: ADVANCED PROBIOTIC 1250 MG CAPSULE PO SCH (12:33)
--- NOTE | 2021-05-20 16:28 | Discharge Summary ---
Date of Service May 20, 2021 Admission HPI Per Admitting Provider 85 YO female arrives to ER with above chief complaint with history of diabetes Mellitus type 2, Chronic anticoagulation due to DVT, CKD (chronic kidney disease), stage III, Delayed gastric emptying, Diabetic neuropathy, Dyslipidemia, GERD (gastroesophageal reflux disease),Hypertension, IPMN (intraductal papillary mucinous neoplasm), Obesity, Type 2 diabetes mellitus. Patient reports feeling her normal self with no new complaints until early this morning at 4 am. She reports burning right sided chest pain that was located on the mid clavicular line near the upper third of the chest. Pain did not radiate and she denies any metallic taste. This resting chest pain woke her up. She also denies SOB, nausea, vomiting, feeling of impending doom, diaphoresis. Her pain did not improve with changing position and it lasted for over an hour. She woke up her as she reports she normally gets symptoms of GERD, but it is more likely midsternum, though rarely it may be right sided. She denied any precipitating or alleviating factors. As pain did not go away, she decided to go to the ER. She reports pain improved with medication given here. Principal Diagnosis atypical chest pain Discharge Exam The patient appeared well Vital signs as documented. Lungs are clear to auscultation and appear unlabored Cardiac exam, Rhythm is regular.. No murmurs, rubs or gallops. Abdominal exam reveals normal bowel sounds, soft non tender, no masses Extremities are nonedematous and both pedal pulses are normal. Neurologic exam is alert and oriented, no focal loss of strength or sensation Skin is without bruises or rashes Psychologically is without concerns for anxiety or depression. Discharge Data Allergies Allergy/AdvReac Type Severity Reaction Status Date / Time Iodinated Contrast Media Allergy Severe Rash Verified 05/19/21 07:41 aspirin Allergy Intermediate RASH, GI Verified 05/19/21 07:41 UPSET nitrofurantoin Allergy Intermediate HIVES Verified 05/19/21 07:41 Penicillins Allergy Intermediate rash Verified 05/19/21 07:41 Sulfa (Sulfonamide Allergy Intermediate rash Verified 05/19/21 07:41 Antibiotics) aspartame [From Prevalite] Allergy Mild Diarrhea Verified 05/19/21 07:41 cholestyramine Allergy Mild LIP Verified 05/19/21 07:41 SWELLING WITH PREVALITE (GEN QUESTRAN) amlodipine Allergy Unknown Unknown Verified 05/19/21 07:41 dexlansoprazole Allergy Unknown Unknown Verified 05/19/21 07:41 [From Dexilant] atropine AdvReac Mild PASSED OUT Verified 05/19/21 07:41 cephalexin AdvReac Mild DIARRHEA Verified 05/19/21 07:41 cimetidine AdvReac Mild INSOMNIA Verified 05/19/21 07:41 diphenoxylate AdvReac Mild PASSED OUT Verified 05/19/21 07:41 metformin AdvReac Mild DIARRHEA Verified 05/19/21 07:41 Consultations 05/19/21 09:17 ED Decision to Admit Stat 05/19/21 10:38 Consult Cardiology Routine Ordered Studies 05/19/21 07:39 US venous doppler [facility] Hospital Course (1) Right-sided chest pain: Right sided chest pain in an 85 yo female with diabetes type 2, CKD stage 3, h/o DVT and GERD. cardiac markers trended negative. D-dimer is positive. doppler shows chronic DVT noted on imaging, Well Criteria is moderate risk for P/E. V/Q perfusion scan of chest given is low prob echocardiogram. 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 The episodes themselves were very brief in duration and nonsustained. While her biomarkers are normal, such a brief episode of discomfort would not likely result in any elevation. Her EKG was entirely normal. We will wait for the results of her echocardiogram. Her echocardiogram looks normal I think she could likely be discharged without any additional evaluation given the very atypical nature of her chest pain. (2) Coronary disease: She has a history of coronary angiography performed in 2010 revealing nonobstructive coronary disease. No current symptoms suggestive of coronary insufficiency or angina although she is fairly limited by her orthopedic disease. She should continue aggressive secondary prevention. Her records mention use of statin therapy previously but not on this currently. Continuing apixaban and considering re-initiation of statin therapy, atorvastatin, would be recommended. follow up with Primary care and consider cardiology follow up as needed (2) Type 2 diabetes mellitus with insulin therapy: continue home regimen. (3) Obesity: BMI is greater than 34. Recommend lifestyle changes. (4) Hypertension: (5) Dyslipidemia: starting statin (6) Chronic anticoagulation: On xarelto for h/o DVT. (7) CKD (chronic kidney disease), stage III: creatinine at baseline. (8) Chronic deep vein thrombosis (DVT): Chronic nonocclusive thrombus within the right popliteal vein on eliquis. DNR Total Time Total Time Spent Total Time Spent (In Minutes): It required greater than 30 minutes to prepare this patient for discharge Discharge Plan Discharge Items Patient Disposition: Home - Self-Care Reason For Visit: CHEST PAIN Discharge Diagnosis: non typical chest pain Activity: Per Instructions section Activity Comment: slowly increase activity Non-emergency contact: Primary Care Provider Call non-emergency contact if: you have any medication questions and your symptoms worsen Follow-up/Referrals: Rosemary Zuluaga DO [Primary Care Provider] - 05/27/21 9:40 am (WITH KELL ZULUAGA IN AUGUST) Diet: Heart Healthy Addtl Attending Provider Instructions: Cardiology has recommended to restart your atorvastatin for cardioprotective affects, please notify your primary care doctor at your next appointment regarding this medication change Pending Studies at Discharge: No Stand-Alone Forms: My [facility] [place] [facility], Smoking Cessation Medications and DC Order Prescriptions: New atorvastatin 20 mg tablet 20 mg PO DAILY Qty: 30 RF: 5 Continued betamethasone valerate 0.1 % cream 1 appln TOP BID PRN (Reason: rash) Qty: 45 RF: 0 clobetasol [Temovate] 0.05 % ointment 1 applic TOP 3XWK Qty: 45 RF: 3 lisinopril 10 mg tablet 10 mg PO BID Qty: 180 RF: 1 dicyclomine 10 mg capsule 10 mg PO TID PRN (Reason: abdominal discomfort) Qty: 90 RF: 1 nystatin [Nyamyc] 100,000 unit/gram powder 1 applic TOP BID Qty: 60 RF: 3 Eliquis 5 mg tablet 5 mg PO BID Qty: 180 RF: 1 Prodigen 31 billion cell capsule 1 cap PO QDL Qty: 30 RF: 0 tramadol 50 mg tablet 50 mg PO Q8H PRN (Reason: pain) Qty: 60 RF: 0 lorazepam 0.5 mg tablet 0.25 mg PO DAILY PRN (Reason: anxiety) Qty: 14 RF: 0 cholecalciferol (vitamin D3) 1,000 unit capsule 1,000 units PO QAM RF: 0 acyclovir [Zovirax] 5 % ointment 1 appln TOP 6XD PRN (Reason: Cold Sores) RF: 0 esomeprazole magnesium [Nexium] 20 mg Capsule,Delayed Release(Dr/Ec) 20 mg PO BID RF: 0 Basaglar KwikPen U-100 Insulin 100 unit/mL (3 mL) insulin pen 9 unit subcut HS RF: 0 Multivitamin Women 50 Plus 8 mg iron-400 mcg-300 mcg Tablet 1 tab PO QAM RF: 0 meclizine 25 mg tablet 25 mg PO TID Qty: 14 RF: 0 insulin aspart U-100 [Novolog Flexpen U-100 Insulin] 100 unit/mL (3 mL) insulin pen 0 unit SUBCUT DIRECTED RF: 0 No Action (DME) pen needle, diabetic [BD Ultra-Fine Aby Pen Needle] 32 gauge x 5/32" needle See Rx Instructions .ROUTE .MEDSUPPLY Qty: 300 RF: 5 (DME) Wheeled Walker Misc See Rx Instructions .ROUTE .MEDSUPPLY Qty: 1 RF: 0 Discharge Orders: Discharge Order (Routine); Ordered 05/20/21 Ordered By: Edmund Nesbitt Admission Data Admit Date/Time: 05/19/21 11:03 Attending Provider: Edmund Nesbitt Admit Provider: Kirby Gutierres Primary Care Provider: Rosemary Zuluaga Other Providers: Yajaira Miller ; Yoni Conn Other Interventions: Discharge Summary Assessment (RN) Last Done: 05/20/21 15:42 Coding Level of Care Code D/C DAY MANAGEMENT >30 MINS Diagnoses Right-sided chest pain R07.9 Type 2 diabetes mellitus with insulin therapy E11.9; Z79.4 Obesity E66.9 Hypertension I10 Dyslipidemia E78.5 Chronic anticoagulation Z79.01 CKD (chronic kidney disease), stage III N18.3 Chronic deep vein thrombosis (DVT) I82.509
[2021-05-21] MEDS ORDERED: CLOBETASOL PROPIONATE 0.05% OINT 15 GM TUBE EXT SCH (09:00)
== END 2021-05-20 16:25 | disposition home or self-care (01) ==
LOC: 2S 05:57 → ED 05:57 → SUATTDRO 11:03 → 2S 12:00

== ENCOUNTER 2024-05-18 10:23 | Observation (INO) ==
[2024-05-18] MEDS: SODIUM CHLORIDE 0.9% 1,000 ML IV SCH (10:45)
--- NOTE | 2024-05-18 10:52 | Emergency Department Note ---
Impression & Plan Weakness, Diverticulitis, Dizziness, Acute hyponatremia, Hypomagnesemia ED Provider Note NAME: TRACEY ANDERSEN AGE: 88 SEX: F : 1935 ARRIVES VIA: Ambulance INFORMANT: [Patient] ED PROVIDER(S): [Reagan Mcdaniel MD] CHIEF COMPLAINT: Weakness HISTORY OF PRESENT ILLNESS: The patient is an 88-year-old female who started Cipro and Flagyl on 11 May for diverticulitis. The patient had an episode where she returned to the ER for what was thought to be rectal bleeding although, there was no evidence of this on workup. She did see GI a few days ago and they continued the Cipro and Flagyl as her diverticulitis appeared to be improving. The patient has felt weak and not quite right since starting the medications. Last night, she spoke with her doctors office after taking the Cipro. She was told to hold the meds. She did not take Flagyl last night. She did not take Cipro or Flagyl this morning. She did not take her other typical meds this morning. She did take her insulin. The patient had a bad night last night, she feels weak and exhausted. She feels lightheaded and dizzy. She states that she could not sleep because it felt her legs kept moving. She wonders if the medications are causing her symptoms. In addition, the patient has been urinating frequently. She was up at least 4 times last night urinating. PMHx/PSHx/Social Hx: See Below PHYSICAL EXAM: GENERAL: Patient is in no acute distress. HEENT: No acute trauma, normocephalic atraumatic, mucous membranes moist, no nasal congestion. NECK: No stridor, no adenopathy, no meningismus, trachea is midline. LUNGS: Clear to auscultation bilaterally, no wheeze, no rhonchi, breath sounds equal. HEART: Without murmurs gallops or rubs, regular rate and rhythm. ABDOMEN: Soft, nontender, no peritonitis. EXTREMITIES: No cyanosis, full range of motion of all the joints without pain or difficulty. NEUROLOGIC: Oriented x 3, no acute motor or sensory deficits, no focal weakness. SKIN: No jaundice, no diaphoresis. DIFFERENTIAL DIAGNOSIS: Dehydration, electrolyte imbalance, UTI, medication reaction, renal or liver failure, among others. EMERGENCY DEPARTMENT PROCEDURES: MEDICAL DECISION MAKING: There is no leukocytosis or concerning anemia. There is a normal platelet count. Sodium was quite low at 126, this was a significant drop for her looking back at previous testing. There was no renal failure. Magnesium is low at 1.6. No concerning liver enzyme elevation. Patient appeared to be in a euthyroid state. ECG showed a sinus rhythm, no dysrhythmia or ischemia. Cardiac enzyme testing x 1 was not consistent with acute cardiac injury. Urinalysis did not show findings of infection. Chest x-ray did not show CHF or pneumonia. On exam, the patient was not febrile or toxic. There were no acute neurologic findings. The patient received IV saline, 1 L. She was given IV magnesium. The patient presents with weakness, dizziness. She thought she was reacting to her antibiotics although, this does not appear to be the case. The patient admits that she is drinking a lot of liquid, she was told to do so. She may have over hydrated with free water. I do think the hyponatremia explains her presentation. She does qualify for a hospital stay. I did speak with the patient at length, I spoke with case management. The on-call hospitalist was consulted. Prior/Outside records/notes reviewed: Today's EMS notes describing her presentation and transport to this hospital. ECG per my interpretation: Indication was weakness. The ECG shows a normal sinus rhythm with a rate of 63. There is no acute ST elevation, no PVCs. The QTc is 431. Continuous Cardiac Monitoring per my interpretation: An order was placed for continuous cardiac monitoring. The monitor shows a rate of 67 with normal sinus rhythm. Imaging/x-ray results per my interpretation: Chest x-ray did not show pneumonia, CHF or pneumothorax. Chronic Medical/Social conditions affecting care: Advanced age. Care/Management discussed with: Case management, the on-call hospitalist. Level of care consideration(s): After review of the information above and other included data: --I believe the patient requires escalation of care to admission DISPOSITION: Admission Past Med/Surg History Problem List (Updated 05/18/24 @ 16:56 by Reagan Mcdaniel MD) Hypomagnesemia (Acute) Acute hyponatremia (Acute) Dizziness (Acute) Diverticulitis (Acute) Weakness (Acute) Hyponatremia Diverticulitis (Acute) Acute diverticulitis (Acute) Abdominal pain, acute, left lower quadrant (Acute) Knee osteoarthritis Constipation Venous insufficiency (chronic) (peripheral) Hypercalcemia Pericardial cyst Chronic deep vein thrombosis (DVT) Microscopic hematuria Obesity 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 Type 2 diabetes mellitus with insulin therapy Loss of protective sensation of skin of foot IBS (irritable bowel syndrome) History of DVT (deep vein thrombosis) DJD (degenerative joint disease) of knee SNHL (sensorineural hearing loss) Esophageal dysphagia Chronic osteoarthritis Hiatal hernia Diabetic neuropathy Vitamin D deficiency Sleep apnea Periodic limb movement disorder Osteopenia Lichen sclerosus et atrophicus IPMN (intraductal papillary mucinous neoplasm) Hypertension Headache, migraine Dyslipidemia Delayed gastric emptying Chronic anticoagulation CKD (chronic kidney disease), stage III Arteriosclerotic coronary artery disease Nonobstructive on 2010 cath ([facility]) Anxiety Anemia GERD (gastroesophageal reflux disease) Hemorrhoids (Chronic) Incisional hernia Medical History Appendicitis History of blood clots X 2016 Surgical History S/P laparoscopic appendectomy (03/03/21) History of tooth extraction History of bilateral oophorectomy H/O ventral hernia repair Hx of vaginal hysterectomy H/O umbilical hernia repair H/O shoulder surgery History of cholecystectomy Hx of cataract surgery H/O foot surgery Family History Daughter Congenital clotting factor deficiency Mother Diabetes Hypertension Myocardial infarction Stroke syndrome Stroke Brother Cancer Hypertension Pancreatic cancer Prostate cancer Family/Other Cardiac disorder Father Hypertension Other Heart disease No family history of bleeding disorder Denies family history of Breast cancer Colorectal cancer Social History Smoking Status: Never smoker Second Hand Exposure: No; Do You Dip or Chew Tobacco: No; Hx Alcohol Use: No Hx Substance Use: No Preferred Language: Sami Communication Ability: Effective Visual Impairment: No Limitations Hearing Ability: Normal Account Assistant Required: No Beliefs That Will Affect Care: None marital status: Current Living Situation: Spouse Current Living Situation Comment: lives in 1 story home w/ . [facility] current occupational status: retired current occupation: worked at the [employer] How many Children do You have: 1 Other Information That Helps Us Care for You: No Feels Safe at Home: Yes Safety Concerns: Feels Safe At This Time Childhood Exposure to Second-Hand Smoke: No Diet: regular Diet Comment: regular caffeine: No during the past year weight has: other Dental Care, Regularly: Yes Physical Activity Frequency: Other Physical Activity Frequency Comment: Limited due to physical condition. Seatbelt Use: always Sunscreen Use: No Assistive Devices: Bedside Commode and Walker Allergies Allergies Allergy/AdvReac Type Severity Reaction Status Date / Time Iodinated Contrast Media Allergy Severe Rash Verified 05/18/24 13:17 aspartame [From Prevalite] Allergy Intermediate Diarrhea Verified 05/18/24 13:17 aspirin Allergy Intermediate RASH, GI Verified 05/18/24 13:17 UPSET cholestyramine Allergy Intermediate LIP Verified 05/18/24 13:17 SWELLING WITH PREVALITE (GEN QUESTRAN) nitrofurantoin Allergy Intermediate HIVES Verified 05/18/24 13:17 Penicillins Allergy Intermediate rash Verified 05/18/24 13:17 pepper (genus Capsicum) Allergy Intermediate Gastrointestinal Unverified 05/18/24 13:17 Upset with any spicy pepper red dye Allergy Intermediate Gastrointestinal Unverified 05/18/24 13:17 Upset Sulfa (Sulfonamide Allergy Intermediate rash Verified 05/18/24 13:17 Antibiotics) amlodipine Allergy Unknown CAN'T Verified 05/18/24 13:17 REMEMBER dexlansoprazole Allergy Unknown CAN'T Verified 05/18/24 13:17 [From Dexilant] REMEMBER atropine AdvReac Intermediate PASSED OUT Verified 05/18/24 13:17 cefdinir AdvReac Intermediate Flushing Verified 05/18/24 13:17 cephalexin AdvReac Intermediate DIARRHEA Verified 05/18/24 13:17 cimetidine AdvReac Intermediate INSOMNIA Verified 05/18/24 13:17 diphenoxylate AdvReac Intermediate PASSED OUT Verified 05/18/24 13:17 metformin AdvReac Intermediate DIARRHEA Verified 05/18/24 13:17 cefdinir Allergy Unknown Uncoded 05/18/24 13:17 Home Meds Home Medications Medication Instructions Recorded Confirmed [id number] 8 mg-folic 400 1 tab PO QAM 11/12/18 05/18/24 mcg-K 50 mcg-lutein 300 mcg tablet (Multivitamin Women 50 Plus) cholecalciferol (vitamin D3) 25 2,000 unit PO QDD 01/05/22 05/18/24 mcg (1,000 unit) capsule apixaban 5 mg tablet (Eliquis) 5 mg PO BIDM 03/21/24 05/18/24 atorvastatin 10 mg tablet 10 mg PO WK 03/21/24 05/18/24 insulin lispro 100 unit/mL 0 sliding scale dose subcut TIDM 03/21/24 05/18/24 subcutaneous pen (Admelog SoloStar U-) nystatin 100,000 unit/gram topical 1 applic topical BID 04/21/24 05/18/24 powder (Klayesta) Saccharomyces boulardii 250 mg 250 mg PO QPM 05/18/24 05/18/24 capsule (Florastor) Previous Rx's Medication Instructions Recorded flash glucose sensor (FreeStyle #2 ea 05/13/22 Roberto 14 Day Sensor kit) pen needle, diabetic 32 gauge x #400 ea 03/08/23 5/32" (BD Ultra-Fine Aby Pen Needle) insulin glargine 100 unit/mL (3 10 unit (0.1 mL) subcut HS 90 days 10/07/23 mL) subcutaneous pen (Basaglar #15 mL KwikPen U-100 Insulin) nystatin-triamcinolone 100,000 See Rx Instructions .Route 05/01/24 unit/gram-0.1 % topical ointment .COMPLEX #30 grams blood sugar diagnostic (OneTouch #400 ea 05/04/24 Verio test strips) lancets 30 gauge (OneTouch Delica #400 ea 05/04/24 Plus Lancet) lisinopril 10 mg tablet 10 mg PO BID #180 tabs 05/04/24 ciprofloxacin HCl 500 mg tablet 500 mg PO BID 10 days #20 tabs 05/11/24 (Cipro) metronidazole 500 mg tablet 500 mg PO Q8H 10 days #30 tabs 05/11/24 Results & Data (ED) Vital Signs Vital Signs - 24 hr 05/18/24 10:29 05/18/24 10:34 05/18/24 10:39 Temperature 36.5 C Temperature Source Oral Pulse Rate 67 Respiratory Rate 19 Respiratory Effort / Characteristics Non-Labored Spontaneous Respiratory Depth Normal Blood Pressure 179/80 H Blood Pressure Mean 113 Pulse Oximetry 98 Oxygen Delivery Method Room Air Room Air Room Air Sepsis Recent Fever Within 48 Hours No Sepsis New/Unexplained Change in Mental Status No Sepsis Action Taken by Nursing No Action Required 05/18/24 12:08 Temperature Temperature Source Pulse Rate 62 Respiratory Rate Respiratory Effort / Characteristics Respiratory Depth Blood Pressure Blood Pressure Mean Pulse Oximetry Oxygen Delivery Method Sepsis Recent Fever Within 48 Hours Sepsis New/Unexplained Change in Mental Status Sepsis Action Taken by [facility]pc Medications Current Medication List: was personally reviewed by me Laboratory Data Attestation: I reviewed the patient's lab results. 05/18/24 10:44 05/18/24 10:44 Lab Results 05/18/24 05/18/24 Range/Units 10:44 11:03 WBC 6.07 (4.8-10.8) K/ul RBC 4.43 (4.20-5.40) M/uL Hgb 13.5 (12.0-16.0) g/dl Hct 39.2 (37.0-47.0) % MCV 88.5 (80.0-100.0) fL MCH 30.5 (25.0-34.0) pg MCHC 34.4 (32.0-36.0) g/dL RDW Std Deviation 40.5 (36.4-46.3) fL RDW Coeff of Harpreet 12.5 (11.5-14.5) % Plt Count 263 (130-400) K/uL MPV 9.5 (9.4-12.4) fL Immature Gran % (Auto) 0.3 % Neut % (Auto) 66.1 % Lymph % (Auto) 21.6 % Upson % (Auto) 11.0 % Eos % (Auto) 0.7 % Baso % (Auto) 0.3 % Neut # (Auto) 4.01 (1.40-6.50) K/uL Lymph # (Auto) 1.31 (1.20-3.40) K/uL Upson # (Auto) 0.67 H (0.11-0.59) K/uL Eos # (Auto) 0.04 (0.00-0.50) K/uL Baso # (Auto) 0.02 (0.00-0.20) K/uL Immature Gran # (Auto) 0.02 (0.01-0.20) K/uL Sodium 126 L (136-145) mmol/L Potassium 4.1 (3.5-5.1) mmol/L Chloride 98 (98-107) mmol/L Carbon Dioxide 20 L (21-32) mmol/L Anion Gap 8 (3-11) BUN 11 (6-23) mg/dl Creatinine 0.93 (0.6-1.2) mg/dl Est Cr Clr Drug Dosing 45.1 ml/min Est GFR ( Amer) 64.0 ml/min Est GFR (Non-Af Amer) 55.3 ml/min BUN/Creatinine Ratio 11.8 (10-20) Glucose 160 H (70-99(Fasting)) mg/dl Osmolality 267 L (280-300) mOsm/kg Calcium 9.3 (8.6-10.3) mg/dl Magnesium 1.6 L (1.7-2.4) mg/dl Total Bilirubin 0.7 (0.2-1.0) mg/dl AST 37 (13-39) U/L ALT 32 (7-52) U/L Alkaline Phosphatase 78 (34-104) U/L Troponin I High Sens 4.7 (0-14) pg/ml Total Protein 6.8 (6.0-8.3) gm/dl Albumin 3.7 (3.4-5.0) gm/dl Globulin 3.1 (2.5-4.0) gm/dl Albumin/Globulin Ratio 1.2 (0.9-2) TSH 1.331 (0.300-4.500) uIu/ml Urine Color Yellow Urine Appearance Clear (Clear) Urine pH 6.5 (4.5-7.5) Ur Specific [place] 1.008 (1.000-1.030) Urine Protein Negative (Negative) Urine Glucose (UA) Negative (Negative) Urine Ketones Negative (Negative) Urine Blood Negative (Negative) Urine Nitrite Negative (Negative) Urine Bilirubin Negative (Negative) Urine Urobilinogen Negative (Negative) Ur Leukocyte Esterase 1+ H (Negative) Urine WBC (Auto) 0-5 (0-5) /hpf Urine RBC (Auto) 0-2 (0-2) /hpf U Hyaline Cast (Auto) 0-2 (0-2) /lpf U Epithel Cells (Auto) 0-2 (0-2) /hpf Urine Bacteria (Auto) None Seen (None Seen) Urine Osmolality 244 L (500-800) mOsm/kg Ur Random Sodium 49 mmol/L Administered Medications Famotidine (Famotidine 20 Mg Tab) 20 mg PO QAM CORINA Stop: 06/17/24 14:44 Last Admin: 05/18/24 15:29 Dose: 20 mg Documented By: ANDRAE Sodium Chloride (Sodium Chloride 1 Gm Tablet) 1 gm PO BID CORINA Stop: 06/17/24 14:39 Last Admin: 05/18/24 15:29 Dose: 1 gm Documented By: ANDRAE Discontinued Medications Apixaban (Apixaban 5 Mg Tablet) 5 mg PO ONE STA Stop: 05/18/24 12:01 Last Admin: 05/18/24 12:26 Dose: 5 mg Documented By: LITA Sodium Chloride (Nss) 1,000 mls @ 999 mls/hr IV .Q1H1M CORINA Stop: 05/18/24 11:45 Last Infusion: 05/18/24 11:46 Dose: Infused Documented By: Admin: 05/18/24 10:45 Dose: 999 mls/hr Documented By: MIRACLE Magnesium Sulfate/Dextrose (Magnesium Sulfate / D5w) 1 gm in 100 mls @ 100 mls/hr IV NOW STA Stop: 05/18/24 12:29 Last Infusion: 05/18/24 13:26 Dose: Infused Documented By: Admin: 05/18/24 12:26 Dose: 100 mls/hr Documented By: Imaging Data Radiologist's Impression: Chest X-Ray 05/18/24 10:39 SINGLE VIEW CHEST CLINICAL HISTORY: Generalized weakness. FINDINGS: An AP, portable, upright chest radiograph is compared to study dated 03/21/2024 and correlated with chest CT dated 04/28/2023. The cardiomediastinal silhouette is top normal for projection. Chronic interstitial thickening is similar to previous. There is mild bibasilar scarring/atelectasis. No airspace consolidation or large pleural effusion is identified. No pneumothorax is seen. The skeletal structures are osteopenic. The bony thorax is grossly intact. Arthritic change is seen in the shoulders. IMPRESSION: No acute cardiopulmonary abnormality is identified. ACT 112: Negative or not required by law. Electronically signed by: Reagan Watters M.D. 05/18/2024 11:04 AM Discharge Plan Visit Data Chief Complaint: Weakness Stated Complaint: DIZZINESS, WEAKNESS ED Provider: Feese,Reagan J Discharge Problem: Weakness, Diverticulitis, Dizziness, Acute hyponatremia, Hypomagnesemia Patient Disposition: Admitted As Inpatient Condition: Fair Discharge Instructions Interventions: ED Discharge Assessment Last Done: 05/18/24 13:27
[2024-05-18 11:04] LABS: Basophils # (auto) 0.02 K/uL (0.00-0.20); Basophils % (auto) 0.3 %; Eosinophils # (auto) 0.04 K/uL (0.00-0.50); Eosinophils % (auto) 0.7 %; Hematocrit (blood only) 39.2 % (37.0-47.0); Hemoglobin 13.5 g/dl (12.0-16.0); Immature Granulocytes # (auto) 0.02 K/uL (0.01-0.20); Immature Granulocytes % (auto) 0.3 %; Lymphocytes # (auto) 1.31 K/uL (1.20-3.40); Lymphocytes % (auto) 21.6 %; Mean Corpuscular Hemoglobin 30.5 pg (25.0-34.0); Mean Corpuscular Hgb Conc 34.4 g/dL (32.0-36.0); Mean Corpuscular Volume 88.5 fL (80.0-100.0); Mean Platelet Volume 9.5 fL (9.4-12.4); Monocytes # (auto) 0.67 K/uL (0.11-0.59); Neutrophils # (auto) 4.01 K/uL (1.40-6.50); Neutrophils % (auto) 66.1 %; Platelet Count 263 K/uL (130-400); RDW Coefficient of Variation 12.5 % (11.5-14.5); RDW Standard Deviation 40.5 fL (36.4-46.3); Red Blood Count 4.43 M/uL (4.20-5.40); White Blood Count 6.07 K/ul (4.8-10.8)
--- NOTE | 2024-05-18 11:06 | XRay Report ---
SINGLE VIEW CHEST CLINICAL HISTORY: Generalized weakness. FINDINGS: An AP, portable, upright chest radiograph is compared to study dated 03/21/2024 and correlat ed with chest CT dated 04/28/2023. The cardiomediastinal silhouette is top normal for projection. 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 There is mild bibasilar scarring/atelectasis. No airspace consolidation or large pleural effusion is identified. No pneumothorax is seen. The skeletal structures are osteopenic. The bony thorax is grossly intact. Arthritic change is seen in the should ers. IMPRESSION: No acute cardiopulmonary abnormality is identified. ACT 112: Negative or not required by law. Electronically signed by: Reagan Watters M.D. 05/18/2024 11:04 AM
[2024-05-18 11:20] LABS: Albumin Globulin Ratio 1.2 (0.9-2); Albumin Level 3.7 gm/dl (3.4-5.0); BUN Creatinine Ratio 11.8 (10-20); Bilirubin,Total 0.7 mg/dl (0.2-1.0); Calcium 9.3 mg/dl (8.6-10.3); Creatinine Clr Calc Pharmacy 45.1 ml/min; Est GFR (Non-African American) 55.3 ml/min; Globulin 3.1 gm/dl (2.5-4.0); Magnesium 1.6 mg/dl (1.7-2.4); Potassium 4.1 mmol/L (3.5-5.1); Total Protein 6.8 gm/dl (6.0-8.3)
[2024-05-18 11:27] LABS: Troponin I High Sensitivity 4.7 pg/ml (0-14)
[2024-05-18 11:33] LABS: Thyroid Stimulating Hormone 1.331 uIu/ml (0.300-4.500)
[2024-05-18 11:43] LABS: Appearance Urine Clear (Clear); Bacteria Urine Automated None Seen (None Seen); Bilirubin Urine Negative (Negative); Blood Urine Negative (Negative); Cast Urine Automated 0-2 /lpf (0-2); Color Urine Yellow; Epithelial Cell Urine Auto 0-2 /hpf (0-2); Glucose Urine UA Negative (Negative); Ketones Urine Negative (Negative); Leukocyte Esterase Urine 1+ (Negative); Nitrite Urine Negative (Negative); Protein Urine Negative (Negative); RBC Urine Automated 0-2 /hpf (0-2); Specific Gravity Urine 1.008 (1.000-1.030); Urobilinogen Urine Negative (Negative); WBC Urine Automated 0-5 /hpf (0-5); pH Urine 6.5 (4.5-7.5)
--- NOTE | 2024-05-18 12:00 | History & Physical Report ---
Date of Service May 18, 2024 Assessment & Plan (1) Hyponatremia: Plan: Suspect this is the cause of her dizziness, nausea, general weakness; treat and reassess Serum Na 126, osm 267, Urine Na 49, osm 244 Suspect combination of increased water intake with lisinopril use +/- SIADH Fluid restrict 1L Start sodium chloride 1g BID (2) Diverticulitis: Plan: She has had 7 days of antibiotics for this nad has no pain. Recent evidence shows limited use of antibiotics in general therefore ok to stop at this stage in case contributing towards above. Plan VTE Prophylaxis - Eliquis Diet - low fiber, T2DM, fluid restricted Disposition - observation to med/surg Admission and Anticipated Discharge Date Admission Date: May 18, 2024 History of Present Illness Chief Complaint: Dizziness, nausea, generalized weakness Primary Care Provider: DO Isi Dhaliwal Edmund is an 88 year old female who presents to the ER with dizziness, nausea and generalized weakness. She reports symptoms started when she was placed on ciprofloxacin and metronidazole for acute diverticulitis diagnosed when she had abdominal pain on May 11. She denies any chest pain, shortness of breath, diarrhea, abdominal pain, vomiting, melena, hematochezia, syncope, cough, fever, chills or urinary symptoms. Dizziness is a lightheadedness which r esolves after lying down. Not unbalanced and room not spinning. She did not take her usual medications this morning. She is prescribed citalopram but reports not taking this for 6-8 months. She reports not using CPAP for previously diagnosed sleep apnea. Allergies Allergy/AdvReac Type Severity Reaction Status Date / Time Iodinated Contrast Media Allergy Severe Rash Verified 05/18/24 13:17 aspartame [From Prevalite] Allergy Intermediate Diarrhea Verified 05/18/24 13:17 aspirin Allergy Intermediate RASH, GI Verified 05/18/24 13:17 UPSET cholestyramine Allergy Intermediate LIP Verified 05/18/24 13:17 SWELLING WITH PREVALITE (GEN QUESTRAN) nitrofurantoin Allergy Intermediate HIVES Verified 05/18/24 13:17 Penicillins Allergy Intermediate rash Verified 05/18/24 13:17 pepper (genus Capsicum) Allergy Intermediate Gastrointestinal Unverified 05/18/24 13:17 Upset with any spicy pepper red dye Allergy Intermediate Gastrointestinal Unverified 05/18/24 13:17 Upset Sulfa (Sulfonamide Allergy Intermediate rash Verified 05/18/24 13:17 Antibiotics) amlodipine Allergy Unknown CAN'T Verified 05/18/24 13:17 REMEMBER dexlansoprazole Allergy Unknown CAN'T Verified 05/18/24 13:17 [From Dexilant] REMEMBER atropine AdvReac Intermediate PASSED OUT Verified 05/18/24 13:17 cefdinir AdvReac Intermediate Flushing Verified 05/18/24 13:17 cephalexin AdvReac Intermediate DIARRHEA Verified 05/18/24 13:17 cimetidine AdvReac Intermediate INSOMNIA Verified 05/18/24 13:17 diphenoxylate AdvReac Intermediate PASSED OUT Verified 05/18/24 13:17 metformin AdvReac Intermediate DIARRHEA Verified 05/18/24 13:17 cefdinir Allergy Unknown Uncoded 05/18/24 13:17 Home Medications Medication Instructions Recorded Confirmed Type [id number] 8 mg-folic 400 1 tab PO QAM 11/12/18 05/18/24 History mcg-K 50 mcg-lutein 300 mcg tablet (Multivitamin Women 50 Plus) cholecalciferol (vitamin D3) 25 2,000 unit PO QDD 01/05/22 05/18/24 History mcg (1,000 unit) capsule flash glucose sensor (FreeStyle #2 ea 05/13/22 05/15/24 Rx Roberto 14 Day Sensor kit) pen needle, diabetic 32 gauge x #400 ea 03/08/23 05/15/24 Rx 5/32" (BD Ultra-Fine Aby Pen Needle) insulin glargine 100 unit/mL (3 10 unit (0.1 mL) subcut HS 90 days 10/07/23 05/18/24 Rx mL) subcutaneous pen (Basaglar #15 mL KwikPen U-100 Insulin) apixaban 5 mg tablet (Eliquis) 5 mg PO BIDM 03/21/24 05/18/24 History atorvastatin 10 mg tablet 10 mg PO WK 03/21/24 05/18/24 History insulin lispro 100 unit/mL 0 sliding scale dose subcut TIDM 03/21/24 05/18/24 History subcutaneous pen (Admelog SoloStar U-) nystatin 100,000 unit/gram topical 1 applic topical BID 04/21/24 05/18/24 History powder (Klayesta) nystatin-triamcinolone 100,000 See Rx Instructions .Route 05/01/24 05/18/24 Rx unit/gram-0.1 % topical ointment .COMPLEX #30 grams blood sugar diagnostic (OneTouch #400 ea 05/04/24 05/15/24 Rx Verio test strips) lancets 30 gauge (OneTouch Delica #400 ea 05/04/24 05/15/24 Rx Plus Lancet) lisinopril 10 mg tablet 10 mg PO BID #180 tabs 05/04/24 05/18/24 Rx ciprofloxacin HCl 500 mg tablet 500 mg PO BID 10 days #20 tabs 05/11/24 05/18/24 Rx (Cipro) metronidazole 500 mg tablet 500 mg PO Q8H 10 days #30 tabs 05/11/24 05/18/24 Rx Saccharomyces boulardii 250 mg 250 mg PO QPM 05/18/24 05/18/24 History capsule (Florastor) Past Med/Surg History Problem List (Updated 05/18/24 @ 16:56 by Reagan Mcdaniel MD) Hypomagnesemia (Acute) Acute hyponatremia (Acute) Dizziness (Acute) Diverticulitis (Acute) Weakness (Acute) Hyponatremia Diverticulitis (Acute) Acute diverticulitis (Acute) Abdominal pain, acute, left lower quadrant (Acute) Knee osteoarthritis Constipation Venous insufficiency (chronic) (peripheral) Hypercalcemia Pericardial cyst Chronic deep vein thrombosis (DVT) Microscopic hematuria Obesity 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 Type 2 diabetes mellitus with insulin therapy Loss of protective sensation of skin of foot IBS (irritable bowel syndrome) History of DVT (deep vein thrombosis) DJD (degenerative joint disease) of knee SNHL (sensorineural hearing loss) Esophageal dysphagia Chronic osteoarthritis Hiatal hernia Diabetic neuropathy Vitamin D deficiency Sleep apnea Periodic limb movement disorder Osteopenia Lichen sclerosus et atrophicus IPMN (intraductal papillary mucinous neoplasm) Hypertension Headache, migraine Dyslipidemia Delayed gastric emptying Chronic anticoagulation CKD (chronic kidney disease), stage III Arteriosclerotic coronary artery disease Nonobstructive on 2010 cath ([facility]) Anxiety Anemia GERD (gastroesophageal reflux disease) Hemorrhoids (Chronic) Incisional hernia Medical History Appendicitis History of blood clots X , 2016 Surgical History S/P laparoscopic appendectomy (03/03/21) History of tooth extraction History of bilateral oophorectomy H/O ventral hernia repair Hx of vaginal hysterectomy H/O umbilical hernia repair H/O shoulder surgery History of cholecystectomy Hx of cataract surgery H/O foot surgery Family History Daughter Congenital clotting factor deficiency Mother Diabetes Hypertension Myocardial infarction Stroke syndrome Stroke Brother Cancer Hypertension Pancreatic cancer Prostate cancer Family/Other Cardiac disorder Father Hypertension Other Heart disease No family history of bleeding disorder Denies family history of Breast cancer Colorectal cancer Social History Smoking Status: Never smoker Second Hand Exposure: No; Do You Dip or Chew Tobacco: No; Hx Alcohol Use: No Hx Substance Use: No Preferred Language: Albanian Communication Ability: Effective Visual Impairment: No Limitations Hearing Ability: Normal Artificial Flowers Dyer Required: No Beliefs That Will Affect Care: None marital status: Current Living Situation: Spouse Current Living Situation Comment: lives in [address] [address] w/ . [facility] current occupational status: retired current occupation: worked at the [employer] Office How many Children do You have: 1 Other Information That Helps Us Care for You: No Feels Safe at Home: Yes Safety Concerns: Feels Safe At This Time Childhood Exposure to Second-Hand Smoke: No Diet: regular Diet Comment: regular caffeine: No during the past year weight has: other Dental Care, Regularly: Yes Physical Activity Frequency: Other Physical Activity Frequency Comment: Limited due to physical condition. Seatbelt Use: always Sunscreen Use: No Assistive Devices: Bedside Commode and Walker Review of Systems Review of Systems: All systems reviewed & are unremarkable except as noted in HPI & below Physical Exam Constitutional: WD/WN, vitals as above Eyes: PERRL, conjunctivae normal, anicteric sclerae ENMT: external ear and nose normal, oropharynx normal Neck: trachea midline, no thyromegaly Respiratory: normal respiratory effort, lungs clear to auscultation Cardiovascular: RRR, no murmur, no edema Gastrointestinal (Abdomen): normal bowel sounds, soft, nontender, no hepatosplenomegaly Musculoskeletal: no cyanosis or clubbing, extremities motor strength 5/5 Skin: no rashes, warm and dry Neurologic: moves all extremities and awake; no focal motor deficits and not confused Psychiatric: A+Ox3, euthymic affect Genitourinary: no CVA tenderness Results & Data Results & Data Vital Signs (Past 12 Hours) Vital Signs Temp Pulse Resp BP Pulse Ox O2 Del Method 05/18/24 10:39 Room Air 05/18/24 10:34 Room Air 05/18/24 10:29 36.5 C 67 19 179/80 H 98 Room Air Laboratory Results Abnormal lab results 05/18/24 05/18/24 Range/Units 10:44 11:03 Sunflower # (Auto) 0.67 H (0.11-0.59) K/uL Sodium 126 L (136-145) mmol/L Carbon Dioxide 20 L (21-32) mmol/L Glucose 160 H (70-99(Fasting)) mg/dl Magnesium 1.6 L (1.7-2.4) mg/dl Ur Leukocyte Esterase 1+ H (Negative) Urine Osmolality 244 L (500-800) mOsm/kg Diagnostic Findings SINGLE VIEW CHEST CLINICAL HISTORY: Generalized weakness. FINDINGS: An AP, portable, upright chest radiograph is compared to study dated 03/21/2024 and correlated with chest CT dated 04/28/2023. The cardiomediastinal silhouette is top normal for projection. Chronic interstitial thickening is similar to previous. There is mild bibasilar scarring/atelectasis. No airspace consolidation or large pleural effusion is identified. No pneumothorax is seen. The skeletal structures are osteopenic. The bony thorax is grossly intact. Arthritic change is seen in the shoulders. IMPRESSION: No acute cardiopulmonary abnormality is identified. Medications Administered ER Medications Given: Normal saline 1L bolus Magnesium sulfate 1g IV ECG Rate (beats per minute): 63 Rhythm: normal sinus Comparison ECG Date: from (May 13, 2024) Change: the following changes noted (TWI no longer evident in anterior leads) Code Status & VTE Plan Code Status DNR/DNI per patient wishes VTE Prophylaxis Plan VTE Prophylaxis will be ordered: Yes PG Care Time/CCT Total # of Minutes Spent Total Time Spent with Patient: Total time spent is greater than 50% in coordination of care (as documented) at patient's floor/unit and/or counseling patient: Coding Level of Care Code 99764 INT INP/OBS CARE 2/55MIN Diagnoses Hyponatremia E87.1 Diverticulitis K57.92
[2024-05-18] MEDS: APIXABAN 5 MG TABLET PO STA (12:26)
[2024-05-18] MEDS: MAGNESIUM SULFATE / D5W 1 GM/100 ML BAG IV STA (12:26)
--- NOTE | 2024-05-18 13:43 | Electrocardiogram Report ---
Test Reason : Blood Pressure : / mmHG Vent. Rate : 063 BPM Atrial Rate : 063 BPM P-R Int : 148 ms QRS Dur : 098 ms QT Int : 422 ms P-R-T Axes : 072 045 032 degrees QTc Int : 431 ms Normal sinus rhythm Normal ECG When compared with ECG of 11-MAY-2024 07:39, T wave inversion no longer evident in Anterior leads Confirmed by Martinez Bonner ([id number]) on 05/18/2024 1:42:54 PM Referred By: REFERRED SELF Confirmed By:Naresh Bonner
[2024-05-18] MEDS ORDERED: ACETAMINOPHEN 325 MG TAB PO PRN (13:56)
[2024-05-18] MEDS ORDERED: GLUCOSE 40% GEL 15 GM TUBE PO PRN (14:40)
[2024-05-18] MEDS ORDERED: GLUCAGON FOR INJ 1 MG VIAL SQ PRN (14:40)
[2024-05-18] MEDS ORDERED: GLUCOSE 10 TAB/TUBE PO PRN (14:40)
[2024-05-18] MEDS ORDERED: DEXTROSE 50% 50 ML SYRINGE IV PRN (14:40)
[2024-05-18] MEDS ORDERED: CARBOHYDRATES FOR HYPOGLYCEMIA PO PRN (14:40)
[2024-05-18] MEDS: FAMOTIDINE 20 MG TAB PO SCH (15:29)
[2024-05-18] MEDS: SODIUM CHLORIDE 1 GM TABLET PO SCH (15:29)
[2024-05-18] MEDS: INSULIN ASPART PER UNIT CHARGE SC SCH (17:21)
[2024-05-18] MEDS: CHOLECALCIFEROL 25 MCG (1000 UNITS) TAB PO SCH (17:27)
[2024-05-18] MEDS: NYSTATIN POWDER 15GM BTL EXT SCH (22:21)
[2024-05-18] MEDS: SACCHAROMYCES BOULARDII 250 MG CAP PO SCH (22:21)
[2024-05-18] MEDS: APIXABAN 5 MG TABLET PO SCH (22:21)
[2024-05-18] MEDS: MAGNESIUM SULFATE / D5W 1 GM/100 ML BAG IV ONE (23:10)
[2024-05-19] MEDS: ALUMINUM/MAGNESIUM SUSP 30 ML UDC ONE (02:12)
[2024-05-19] MEDS: ALUMINUM/MAGNESIUM SUSP 30 ML UDC PO STA (02:49)
[2024-05-19 06:54] LABS: Basophils # (auto) 0.03 K/uL (0.00-0.20); Basophils % (auto) 0.5 %; Eosinophils # (auto) 0.16 K/uL (0.00-0.50); Eosinophils % (auto) 2.6 %; Hematocrit (blood only) 36.9 % (37.0-47.0); Hemoglobin 12.4 g/dl (12.0-16.0); Immature Granulocytes # (auto) 0.02 K/uL (0.01-0.20); Immature Granulocytes % (auto) 0.3 %; Lymphocytes # (auto) 2.15 K/uL (1.20-3.40); Lymphocytes % (auto) 34.7 %; Mean Corpuscular Hemoglobin 30.1 pg (25.0-34.0); Mean Corpuscular Hgb Conc 33.6 g/dL (32.0-36.0); Mean Corpuscular Volume 89.6 fL (80.0-100.0); Mean Platelet Volume 9.7 fL (9.4-12.4); Monocytes # (auto) 0.78 K/uL (0.11-0.59); Monocytes % (auto) 12.6 %; Neutrophils # (auto) 3.05 K/uL (1.40-6.50); Neutrophils % (auto) 49.3 %; Platelet Count 268 K/uL (130-400); RDW Coefficient of Variation 12.8 % (11.5-14.5); RDW Standard Deviation 41.9 fL (36.4-46.3); Red Blood Count 4.12 M/uL (4.20-5.40); White Blood Count 6.19 K/ul (4.8-10.8)
[2024-05-19 07:04] LABS: BUN Creatinine Ratio 14.3 (10-20); Calcium 9.1 mg/dl (8.6-10.3); Creatinine Clr Calc Pharmacy 51.4 ml/min; Est GFR (African American) 72.4 ml/min; Est GFR (Non-African American) 62.5 ml/min
[2024-05-19 07:08] LABS: Estimated Average Glucose 160 mg/dl; Hemoglobin A1C 7.2 % (4.5-5.6)
[2024-05-19] MEDS: MULTIVITAMIN TAB PO SCH (08:44)
[2024-05-19] MEDS: lisinopril 10 MG TAB PO SCH (11:22)
[2024-05-19 14:35] LABS: BUN Creatinine Ratio 16.1 (10-20); Calcium 9.8 mg/dl (8.6-10.3); Creatinine Clr Calc Pharmacy 49.7 ml/min; Est GFR (African American) 69.4 ml/min; Est GFR (Non-African American) 59.9 ml/min; Potassium 4.1 mmol/L (3.5-5.1)
--- NOTE | 2024-05-19 15:35 | Discharge Summary ---
Date of Service May 19, 2024 Admission HPI Per Admitting Provider Isi Shaffer is an 88 year old female who presents to the ER with dizziness, nausea and generalized weakness. She reports symptoms started when she was placed on ciprofloxacin and metronidazole for acute diverticulitis diagnosed when she had abdominal pain on May 11. She denies any chest pain, shortness of breath, diarrhea, abdominal pain, vomiting, melena, hematochezia, syncope, cough, fever, chills or urinary symptoms. Dizziness is a lightheadedness which resolves after lying down. Not unbalanced and room not spinning. She did not take her usual medications this morning. She is prescribed citalopram but reports not taking this for 6-8 months. She reports not using CPAP for previously diagnosed sleep apnea. Principal Diagnosis hyponatremia, hypomagnesemia Discharge Exam Constitutional WD/WN, vitals as above Eyes PERRL, conjunctivae normal, anicteric sclerae Respiratory normal respiratory effort, lungs clear to auscultation Cardiovascular RRR, no murmur, no edema Skin no rashes, warm and dry Psychiatric A+Ox3, euthymic affect Discharge Data Allergies Allergy/AdvReac Type Severity Reaction Status Date / Time Iodinated Contrast Media Allergy Severe Rash Verified 05/18/24 13:17 aspartame [From Prevalite] Allergy Intermediate Diarrhea Verified 05/18/24 13:17 aspirin Allergy Intermediate RASH, GI Verified 05/18/24 13:17 UPSET cholestyramine Allergy Intermediate LIP Verified 05/18/24 13:17 SWELLING WITH PREVALITE (GEN QUESTRAN) nitrofurantoin Allergy Intermediate HIVES Verified 05/18/24 13:17 Penicillins Allergy Intermediate rash Verified 05/18/24 13:17 pepper (genus Capsicum) Allergy Intermediate Gastrointestinal Unverified 05/18/24 13:17 Upset with any spicy pepper Sulfa (Sulfonamide Allergy Intermediate rash Verified 05/18/24 13:17 Antibiotics) amlodipine Allergy Unknown CAN'T Verified 05/18/24 13:17 REMEMBER dexlansoprazole Allergy Unknown CAN'T Verified 05/18/24 13:17 [From Dexilant] REMEMBER atropine AdvReac Intermediate PASSED OUT Verified 05/18/24 13:17 cefdinir AdvReac Intermediate Flushing Verified 05/18/24 13:17 cephalexin AdvReac Intermediate DIARRHEA Verified 05/18/24 13:17 cimetidine AdvReac Intermediate INSOMNIA Verified 05/18/24 13:17 diphenoxylate AdvReac Intermediate PASSED OUT Verified 05/18/24 13:17 metformin AdvReac Intermediate DIARRHEA Verified 05/18/24 13:17 black pepper AdvReac Gastrointestinal Verified 05/19/24 10:24 Upset tomato AdvReac Gastrointestinal Verified 05/19/24 10:25 Upset cefdinir Allergy Unknown Uncoded 05/18/24 13:17 Consultations 05/18/24 11:32 ED Decision to Admit Stat Ordered Studies 05/19/24 06:21 05/19/24 13:56 Vital Signs Temp 36.7 C 05/19/24 15:01 Pulse 70 05/19/24 15:01 Resp 16 05/19/24 15:01 BP 147/83 H 05/19/24 15:01 Pulse Ox 97 05/19/24 15:11 O2 Del Method Room Air 05/19/24 15:01 O2 Flow Rate 0 05/19/24 15:11 Hospital Course (1) Hyponatremia: Patient presented to ED on 05/18 with complaints of dizziness, nausea, generalized weakness. She was found to have serum sodium of 126, osmol 267, urine sodium 49, and osmol 244. Likely due to increased water intake and antibiotic usage. Patient admitted to drinking a large amount of water while on abx therapy. She was started on 1L fluid restriction and sodium chloride 1g BID. AM labs 05/19 noted improvement to 131. PM 05/19 labs 130. Patient had wanted to return home and verbalized she would follow fluid restriction and take salt tabs. She is to follow up closely with PCP within 1-2 weeks. Repeat BMP/Mg in 1 week. Lisinopril was originally held but this is less likely etiology and was resumed. (2) Hypomagnesemia: Patient was also found to have low mag levels at time of ED encounter. 05/18 was 1.6. She was given mag replacement and had improvement to 2 on 05/19. She is to repeat her magnesium levels in one week. (3) Diverticulitis: She has had 7 days of antibiotics for this and has no pain. Recent evidence shows limited use of antibiotics in general therefore ok to stop at this stage in case contributing towards above. Patient encouraged to continue on low fiber diet for next 4 weeks. Plan outpatient medications were resumed upon discharge. Total Time Total Time Spent Total Time Spent (In Minutes): 35 Total Time Includes: Examination of the Patient, Discharge Planning and Medication Reconciliation Discharge Plan Discharge Items Patient Disposition: Home - Self-Care Reason For Visit: HYPONATREMIA Discharge Diagnosis: hyponatremia Condition on Discharge: Fair Activity: Resume your previous activity Non-emergency contact: Primary Care Provider Call non-emergency contact if: you have any medication questions and your symptoms worsen Follow-up/Referrals: Rosemary Zuluaga DO [Primary Care Provider] - 06/01/24 11:00 am (With Jodi Craig) Diet: Carb Consistent or DM2 and Low Fiber Fluids: 1200ml (5 cups) Ambulatory Orders: Basic Metabolic Panel (Routine) Timeframe: 20240526 Location: Determined by Patient Ordered By: Keily Lara Magnesium (Routine) Timeframe: 20240526 Location: Determined by Patient Ordered By: Keily Lara Addtl Attending Provider Instructions: Mrs. Shaffer, Mohamud were admitted to the hospital for weakness and found to have low sodium and magnesium levels. Overnight your sodium levels did improve and your magnesium level stabilized. Please see the following recommendations regarding your discharge. 1. Please take sodium chloride 1gm twice daily for the next 7 days. -Your next dosage will be this evening 05/19. 2. Please restrict your fluids to 1200ml per day (5 cups) for the next 7 days. 3. Please obtain lab work in 1 week to recheck your sodium and magnesium levels. 4. You no longer have to take antibiotics for your diverticulitis, this is resolved. 5. Please resume previous medications as prescribed, including lisinopril 10mg twice daily. Please follow up with your PCP within 1-2 weeks of discharge. If you develop any worsening symptoms including chest pain, shortness of breath, increased weakness/fatigue please report to the ER. Sincerely, Keily Lara PA-C Pending Studies at Discharge: No Stand-Alone Forms: My [employer], Smoking Cessation Medications and DC Order Prescriptions: New sodium chloride 1,000 mg tablet,soluble 1,000 mg PO BID Qty: 14 0RF Continued insulin glargine [Basaglar KwikPen U-100 Insulin] 100 unit/mL (3 mL) insulin pen 10 unit subcut HS 90 Days Qty: 15 3RF nystatin-triamcinolone 100,000-0.1 unit/gram-% ointment See Rx Instructions .ROUTE .COMPLEX Qty: 30 1RF Dose Instruction: 1 APPLIC TOPICALLY TWICE A DAY Rx Instructions: 1 APPLIC TOPICALLY TWICE A DAY lisinopril 10 mg tablet 10 mg PO BID Qty: 180 1RF cholecalciferol (vitamin D3) 25 mcg (1,000 unit) capsule 2,000 unit PO QDD Multivitamin Women 50 Plus 8 mg iron-400 mcg-300 mcg Tablet 1 tab PO QAM atorvastatin 10 mg tablet 10 mg PO WK Rx Instructions: WEDNESDAYS insulin lispro [Admelog SoloStar U-100 Insulin] 100 unit/mL insulin pen 0 sliding scale dose subcut TIDM Eliquis 5 mg tablet 5 mg PO BIDM nystatin [Klayesta] 100,000 unit/gram powder 1 applic TOPICAL BID Rx Instructions: apply to abdominal folds Saccharomyces boulardii [Florastor] 250 mg capsule 250 mg PO QPM Rx Instructions: swallow whole Discontinued metronidazole 500 mg tablet 500 mg PO Q8H 10 Days Qty: 30 0RF Rx Instructions: Start Date 05/11/24 - End Date 05/21/24 ciprofloxacin HCl [Cipro] 500 mg tablet 500 mg PO BID 10 Days Qty: 20 0RF Rx Instructions: Start Date 05/11/24 - End Date 05/21/24 No Action (DME) FreeStyle Roberto 14 Day Sensor Kit See Rx Instructions .Route Qty: 2 1RF Rx Instructions: Change sensor every 14 days (DME) OneTouch Verio test strips Strip See Rx Instructions .ROUTE .MEDSUPPLY Qty: 400 3RF Rx Instructions: use to test blood sugar QID (DME) lancets [OneTouch Delica Plus Lancet] 30 gauge misc See Rx Instructions .Route Qty: 400 3RF Rx Instructions: use to test blood sugar QID (DME) pen needle, diabetic [BD Ultra-Fine Aby Pen Needle] 32 gauge x 5/32" needle See Rx Instructions .ROUTE .MEDSUPPLY Qty: 400 3RF Rx Instructions: Inject insulin four times daily Discharge Orders: Discharge Order (Routine); Ordered 05/19/24 Ordered By: Keily Wagner/Other Patient Handouts: Hyponatremia Dc Admission Data Admit Date/Time: 05/18/24 13:54 Attending Provider: Kirby Gutierres Admit Provider: Ponce Valencia Primary Care Provider: Rosemary Zuluaga Other Providers: Ponce Valencia; Amanuel Salcido [facility] Other Interventions: Discharge Summary Assessment (RN) Last Done: 05/19/24 15:41 Coding Level of Care Code 96127 INP/OBS DISCH >30 MIN Diagnoses Hyponatremia E87.1 Hypomagnesemia E83.42 Diverticulitis K57.92
[2024-05-24] MEDS ORDERED: ATORVASTATIN 10 MG TAB PO SCH (09:00)
== END 2024-05-19 16:21 | disposition home or self-care (01) ==
LOC: ED 10:23 → 3N 10:23 → SUATTDRO 13:54